=== PATIENT | female | born 1980 | race American Indian/Alaskan Native ===

== ENCOUNTER 2016-12-09 08:13 | Emergency (ER) | payer OTHER ==
[2016-12-09 09:02] LABS: Bilirubin,Urine Negative (Negative); Ketones,Urine Negative (Negative)
[2016-12-09 09:03] LABS: Blood,Urine Small (Negative); Leukocyte Esterase,Urine Small (Negative); Nitrite,Urine Negative (Negative); Urobilinogen,Urine 0.2 mg/dL (<2.0)
[2016-12-09 09:10] LABS: Bacteria,Urine 1+ /HPF (Negative)
[2016-12-09 11:42] LABS: Basophils % (Auto) 1.3 % (0.0-1.8); Hematocrit 31.2 % (30.3-42.9); Hemoglobin 10.1 gm/dl (10.1-14.3); Mean Corpuscular HGB Conc 32 % (30-34); Mean Corpuscular Hemoglobin 26 pg (28-32); Mean Corpuscular Volume 81 fl (79-97); Platelet Count 272 K/mm3 (140-440); Red Blood Count 3.85 M/mm3 (3.65-5.03); Red Cell Distribution Width 16.7 % (13.2-15.2); White Blood Count 6.3 K/mm3 (4.5-11.0)
[2016-12-09 11:56] LABS: Alanine Aminotransferase 8 units/L (7-56); Albumin 3.8 g/dL (3.9-5); Albumin/Globulin Ratio 0.9 %; Alkaline Phosphatase 84 units/L (35-129); Anion Gap 18 mmol/L; BUN/Creatinine Ratio 16.66; Bilirubin,Total < 0.2 mg/dL (0.1-1.2); Blood Urea Nitrogen 10 mg/dL (7-17); Carbon Dioxide 24 mmol/L (22-30); Glucose 274 mg/dL (65-100); Lipase 19 units/L (13-60); Potassium 3.9 mmol/L (3.6-5.0); Sodium 143 mmol/L (137-145)
[2016-12-09] MEDS ORDERED: ZOFRAN IV ONE (13:20)
[2016-12-09] MEDS ORDERED: NACL 0.9% 1000 ML 1,000 ML IV ONE (13:20)
[2016-12-09] MEDS ORDERED: DILAUDID IV ONE ×2 (13:20→14:30)
--- NOTE | 2016-12-09 13:30 | Emergency Department Report ---
HPI - General Chief Complaint: Abdominal Pain Time Seen by Provider: 12/09/16 13:25 - HPI HPI: This is a 36-year-old Afro-[place] female who presents to the emergency department with complaint of a three-day history of generalized abdominal discomfort, nausea, vomiting that she believes is an exacerbation of her gastroparesis. Patient does not have a primary care doctor but says she follows up with a nut roaster helper, Dr. soto, and last saw him in October. Patient was also here at the end of October for a similar tetraparesis exacerbation. She is not taken anything for symptoms. Presentation. She also has a history of insulin-dependent diabetes and in reviewing her chart it does not appear that it is often well-controlled. She has a past medical history as well of asthma and a past surgical history of appendectomy, cholecystectomy, tubal ligation and previous C-sections 2. No recent travel or sick contacts at home. She is not taken anything for symptoms prior to presentation. ED Past Medical Hx - Past Medical History Previous Medical History?: Yes Hx Congestive Heart Failure: No Hx Diabetes: Yes Hx Asthma: Yes Hx COPD: No Additional medical history: gastroparesis (no official dx) - Surgical History Past Surgical History?: Yes Hx Cholecystectomy: Yes Hx Appendectomy: Yes Additional Surgical History: tubal ligation. x 2 - Social History Smoking Status: Never Smoker Substance Use Type: None - Medications Home Medications: Home Medications Medication Instructions Recorded Confirmed Last Taken Type Metoclopramide HCl [Reglan] 10 mg PO TID PRN #30 tablet 03/21/15 08/26/15 Rx Ciprofloxacin HCl [Ciprofloxacin 500 mg PO Q12H #14 tab 08/27/15 Unknown Rx TAB] Insulin Glargine [Lantus VIAL] 15 units SUB-Q QHS 30 Days 08/27/15 Unknown Rx Insulin Regular, Human [HumuLIN R] 5 units SUB-Q TID 30 Days 08/27/15 Unknown Rx Ondansetron [Zofran TAB] 4 mg PO Q6HR PRN #20 tablet 02/23/16 Unknown Rx Cyclobenzaprine HCl [Flexeril 5 MG 5 mg PO Q8HR PRN #10 tab 03/17/16 Unknown Rx TAB] Metoclopramide [Reglan] 10 mg PO QID PRN #30 04/02/16 Unknown Rx Ondansetron [Zofran Odt] 4 mg PO Q6H #20 tab.rapdis 10/28/16 Unknown Rx Ondansetron [Zofran ODT TAB] 4 mg PO Q8HR PRN #10 tab.rapdis 12/09/16 Unknown Rx traMADol [Ultram 50 MG tab] 50 mg PO Q6HR PRN #14 tablet 12/09/16 Unknown Rx ED Review of Systems ROS: Stated complaint: ABD PAIN Other details as noted in HPI Comment: All other systems reviewed and negative Constitutional: denies: chills, fever Eyes: denies: eye pain, eye discharge, vision change ENT: denies: ear pain, throat pain Respiratory: denies: cough, shortness of breath, wheezing Cardiovascular: denies: chest pain, palpitations Gastrointestinal: abdominal pain, nausea, vomiting Genitourinary: denies: urgency, dysuria, discharge Musculoskeletal: denies: back pain, joint swelling, arthralgia Skin: denies: rash, lesions Neurological: denies: headache, weakness, paresthesias Physical Exam - Physical Exam Vital Signs: Vital Signs 12/09/16 08:18 Temperature 97.8 F Pulse Rate 80 Respiratory 18 Rate Blood Pressure 157/106 O2 Sat by Pulse 98 Oximetry Physical Exam: GENERAL: The patient is well-developed well-nourished. HEENT: Normocephalic. Atraumatic. Extraocular motions are intact. Patient has moist mucous membranes. Pupils equal reactive to light bilaterally. NECK: Supple. Trachea is midline. CHEST/LUNGS: Clear to auscultation. There is no respiratory distress noted. HEART/CARDIOVASCULAR: Regular. There is no tachycardia. There is no gallop rub or murmur. ABDOMEN: Abdomen is soft. Generalized tenderness to palpation of the abdomen. No guarding or rebound tenderness. No peritoneal signs. Patient has normal bowel sounds. There is no abdominal distention. SKIN: There is no rash. There is no diaphoresis. NEURO: The patient is awake, alert, and oriented. The patient is cooperative. The patient has no focal neurologic deficits. The patient has normal speech. MUSCULOSKELETAL: There is no tenderness or deformity. There is no limitation range of motion. There is no evidence of acute injury. ED Course Vital Signs 12/09/16 08:18 Temperature 97.8 F Pulse Rate 80 Respiratory 18 Rate Blood Pressure 157/106 O2 Sat by Pulse 98 Oximetry ED Medical Decision Making - Lab Data Result diagrams: 12/09/16 11:28 12/09/16 11:28 - Radiology Data Radiology results: image reviewed interpreted by me: Abdominal x-ray shows some stool throughout the colon and some nonobstructive bowel gas but otherwise no acute process. - Medical Decision Making 36-year-old female presents with a few days of nausea, vomiting, abdominal pain consistent with her previous gastroparesis exacerbations. Patient's labs have been mostly unremarkable including no signs of infection in the blood, electrolyte abnormalities, renal insufficiency, and the patient has normal belly labs including lipase, LFTs and bilirubin. Her urinalysis does show a urinary tract infection however. Given a dose of Rocephin in the emergency department. The patient did have some hyperglycemia but does not appear to be in diabetic ketoacidosis. Abdominal x-ray does not show any bowel obstruction or any other acute process. Patient was given IV fluid resuscitation, antinausea medication and 2 doses of pain medication. Upon reevaluation the patient says she is feeling better. She already has good follow-up with a nut roaster helper but will be given some primary care doctor referrals as well. She'll be discharged home with some pain medication, nausea medication, and encouraged to increase oral rehydration. She will return to the ER with any worsening of her symptoms or any acute distress. - Differential Diagnosis gastroparesis, bowel obstruction, colitis, diverticulitis Critical Care Time: No Critical care attestation.: If time is entered above; I have spent that time in minutes in the direct care of this critically ill patient, excluding procedure time. ED Disposition Clinical Impression: Hyperglycemia Abdominal pain Qualifiers: Abdominal location: generalized Qualified Code(s): R10.84 - Generalized abdominal pain Nausea and vomiting Qualifiers: Vomiting type: unspecified Vomiting Intractability: non-intractable Qualified Code(s): R11.2 - Nausea with vomiting, unspecified UTI (urinary tract infection) Qualifiers: Urinary tract infection type: acute cystitis Hematuria presence: without hematuria Qualified Code(s): N30.00 - Acute cystitis without hematuria Disposition: DISCHARGED TO HOME OR SELFCARE Is pt being admited?: No Condition: Stable Instructions: Abdominal Pain (ED), Acute Nausea and Vomiting (ED), Diabetic Hyperglycemia (ED) Additional Instructions: Please follow-up with your nut roaster helper in the next few days if possible. I have also given use some referrals for local primary care clinics and physicians. Return to the emergency department with any worsening of your symptoms or any acute distress. You've been prescribed a medication that is sedating. Therefore this medication cannot be mixed with alcohol, or taken prior to driving, working, or being responsible for children. Prescriptions: Ondansetron [Zofran ODT TAB] 4 mg PO Q8HR PRN #10 tab.rapdis PRN Reason: Nausea traMADol [Ultram 50 MG tab] 50 mg PO Q6HR PRN #14 tablet PRN Reason: Pain Referrals: PRIMARY CAREMD [Primary Care Provider] - 3-5 Days BRADY GAMBLE MD [Staff Physician] - 3-5 Days [facility] [Outside] - 3-5 Days Time of Disposition: 15:18
[2016-12-09] MEDS ORDERED: BENADRYL ONE (13:39)
[2016-12-09] MEDS ORDERED: BENADRYL IV ONE (13:50)
[2016-12-09] MEDS ORDERED: ROCEPHIN/NS 1 GM/50 ML 1 GM/50 ML BAG IV ONE (14:00)
[2016-12-09 14:21] VITALS: BP 127/71
--- NOTE | 2016-12-10 08:27 | XRay Report ---
ABDOMEN RADIOGRAPHS INDICATION: Abdominal pain. COMPARISON: 10/25/2014 FINDINGS: Frontal abdominal radiographs demonstrate nonobstructive bowel gas pattern without focal suspicious calcifications, pneumatosis or pneumoperitoneum. Moderate colonic stool/possible constipation. Cholecystectomy clips. Numerous pelvic phleboliths. Interval clearing of urinary bladder contrast. Clear visualized lung bases. Unremarkable bones. CONCLUSION: Possible constipation without acute radiographic abnormality, as described. Please correlate. Thank you for the opportunity to participate in this patient's care.
== END 2016-12-09 16:16 | disposition home or self-care (01) ==
LOC: ED 08:13
DX: E11.65 Type 2 diabetes mellitus with hyperglycemia (principal); N30.00 Acute cystitis without hematuria; R11.2 Nausea with vomiting, unspecified; R10.84 Generalized abdominal pain; J45.909 Unspecified asthma, uncomplicated; Z90.49 Acquired absence of other specified parts of digestive tract
CPT/HCPCS: 36415; 74020; 80053; 81001; 81025; 83690; 85025; 96365; 96375; 96376; 99284; J0696; J1170; J1200; J2405; J7030

== ENCOUNTER 2016-12-31 21:44 | Emergency (ER) | payer OTHER ==
--- NOTE | 2016-12-31 23:03 | Emergency Department Report ---
Chief Complaint: Abdominal Pain Stated Complaint: ABD PAIN/VOMITING Time Seen by Provider: 12/31/16 22:58 - HPI History of Present Illness: 36-year-old female past medical history of diabetes asthma and possible gastroparesis comes in today for abdominal pain and vomiting 5 days. Patient reports that is progressively getting worse. Patient last vomited 45 minutes ago she also admits to nausea - Exam Vital Signs: Vital Signs 12/31/16 22:09 Temperature 98.5 F Pulse Rate 87 Respiratory 18 Rate Blood Pressure 129/81 O2 Sat by Pulse 99 Oximetry Physical Exam: Patient's alert and oriented does appear to be a discomfort. Cardiovascular S1- S2 regular rate and rhythm respiratory clear to observation bilateral abdomen soft tenderness diffuse. MSE screening note: Focused history and physical exam performed. Due to findings the following was ordered: CBC CMP lipase urinalysis is been ordered patient be evaluated in the main ER ED Disposition for MSE Condition: Stable Instructions: Abdominal Pain (ED) Referrals: PRIMARY CARE, [Primary Care Provider] - 3-5 Days
[2017-01-01] MEDS ORDERED: BENADRYL IV ONE (04:19)
[2017-01-01] MEDS ORDERED: DILAUDID IV ONE ×2 (04:19→06:53)
[2017-01-01] MEDS ORDERED: NACL 0.9% 1000 ML 1,000 ML IV ONE (04:19)
[2017-01-01] MEDS ORDERED: REGLAN IV ONE (04:19)
[2017-01-01 05:52] LABS: Bacteria,Urine 1+ /HPF (Negative); Bilirubin,Urine NEG (Negative); Blood,Urine MOD (Negative); Ketones,Urine NEG (Negative); Leukocyte Esterase,Urine LG (Negative); Mucus,Urine FEW /HPF; Nitrite,Urine POS (Negative); Urobilinogen,Urine < 2.0 mg/dL (<2.0); WBC,Urine > 182.0 /HPF (0.0-6.0)
[2017-01-01 06:04] LABS: Basophils % (Auto) 0.7 % (0.0-1.8); Eosinophils % (Auto) 0.2 % (0.0-4.3); Hematocrit 33.4 % (30.3-42.9); Hemoglobin 10.7 gm/dl (10.1-14.3); Mean Corpuscular HGB Conc 32 % (30-34); Mean Corpuscular Volume 81 fl (79-97); Platelet Count 270 K/mm3 (140-440); Red Blood Count 4.12 M/mm3 (3.65-5.03); Red Cell Distribution Width 18.1 % (13.2-15.2); White Blood Count 13.1 K/mm3 (4.5-11.0)
[2017-01-01 06:16] LABS: Alanine Aminotransferase 13 units/L (7-56); Albumin 3.8 g/dL (3.9-5); Albumin/Globulin Ratio 0.8 %; Alkaline Phosphatase 122 units/L (35-129); Anion Gap 22 mmol/L; Bilirubin,Total 0.5 mg/dL (0.1-1.2); Blood Urea Nitrogen 14 mg/dL (7-17); Calcium 9.1 mg/dL (8.4-10.2); Carbon Dioxide 28 mmol/L (22-30); Chloride 86.4 mmol/L (98-107); Glucose 433 mg/dL (65-100); Lipase 23 units/L (13-60); Potassium 3.7 mmol/L (3.6-5.0); Sodium 133 mmol/L (137-145); Total Protein 8.3 g/dL (6.3-8.2)
[2017-01-01 06:20] LABS: Mean Corpuscular Hemoglobin 26 pg (28-32)
[2017-01-01] MEDS ORDERED: MACROBID PO ONE (06:53)
--- NOTE | 2017-01-01 06:56 | Emergency Department Report ---
ED Abdominal Pain HPI - General Chief Complaint: Abdominal Pain Stated Complaint: ABD PAIN/VOMITING Time Seen by Provider: 12/31/16 22:58 Source: patient Mode of arrival: Ambulatory Limitations: No Limitations - History of Present Illness Initial Comments: This is a 36-year-old female. I have previously evaluated her. Has a past medical history of hypertension, diabetes, high cholesterol, questionable diagnosis of gastroparesis, although as per our medical records, it has not been formally diagnosed. She does not follow-up with gastroenterology thus far. Patient presents to the ER complaining of diffuse abdominal pain, nausea and vomiting 5 days. Abdominal pain is sharp and achy. It is "all over." It worsens with palpation and range of motion. It decreases with rest. She denies irritative and obstructive urinary symptoms. She reports that she is defecating normally. No vaginal pain, no vaginal bleeding, no vaginal spotting. The patient denies marijuana consumption. MD Complaint: abdominal pain -: Gradual Location: diffuse Severity: moderate Severity scale (0 -10): 10 Quality: cramping, aching Consistency: intermittent Improves With: medication, rest Worsens With: eating, vomiting Associated Symptoms: nausea, vomiting, fever (patient found to be febrile in the emergency department.) - Related Data Previous Rx's Medication Instructions Recorded Last Taken Type Insulin Glargine [Lantus VIAL] 15 units SUB-Q QHS 30 Days 08/27/15 Unknown Rx Insulin Regular, Human [HumuLIN R] 5 units SUB-Q TID 30 Days 08/27/15 Unknown Rx Ondansetron [Zofran TAB] 4 mg PO Q6HR PRN #20 tablet 02/23/16 Unknown Rx Cyclobenzaprine HCl [Flexeril 5 MG 5 mg PO Q8HR PRN #10 tab 03/17/16 Unknown Rx TAB] Metoclopramide [Reglan] 10 mg PO QID PRN #30 04/02/16 Unknown Rx Ondansetron [Zofran ODT TAB] 4 mg PO Q8HR PRN #10 tab.rapdis 12/09/16 Unknown Rx traMADol [Ultram 50 MG tab] 50 mg PO Q6HR PRN #14 tablet 12/09/16 Unknown Rx Famotidine [Pepcid] 20 mg PO QDAY #30 tablet 01/01/17 Unknown Rx Nitrofurantoin [place]/M-Cryst 100 mg PO Q12HR #13 capsule 01/01/17 Unknown Rx [Macrobid CAP] Ondansetron [Zofran Odt] 4 mg PO QID PRN #20 tab.rapdis 01/01/17 Unknown Rx Promethazine [Phenergan SUPPOS] 50 mg TN Q6H PRN #20 supp.rect 01/01/17 Unknown Rx Allergies Allergy/AdvReac Type Severity Reaction Status Date / Time ketorolac tromethamine Allergy Shortness Verified 02/22/16 14:27 [From Toradol] of Breath morphine Allergy Itching Verified 02/22/16 14:27 dicyclomine HCl [From Bentyl] AdvReac Hives Verified 10/28/16 04:49 ED Review of Systems ROS: Stated complaint: ABD PAIN/VOMITING Other details as noted in HPI Constitutional: malaise. denies: fever Eyes: denies: eye discharge ENT: denies: epistaxis Respiratory: denies: cough Cardiovascular: denies: chest pain Gastrointestinal: abdominal pain, nausea, vomiting Genitourinary: denies: dysuria Musculoskeletal: as per HPI Skin: denies: lesions Neurological: weakness Psychiatric: anxiety ED Past Medical Hx - Past Medical History Previous Medical History?: Yes Hx Congestive Heart Failure: No Hx Diabetes: Yes Hx Asthma: Yes Hx COPD: No Additional medical history: gastroparesis (no official dx) - Surgical History Hx Cholecystectomy: Yes Hx Appendectomy: Yes Additional Surgical History: tubal ligation. x 2 - Social History Smoking Status: Never Smoker - Medications Home Medications: Home Medications Medication Instructions Recorded Confirmed Last Taken Type Insulin Glargine [Lantus VIAL] 15 units SUB-Q QHS 30 Days 08/27/15 Unknown Rx Insulin Regular, Human [HumuLIN R] 5 units SUB-Q TID 30 Days 08/27/15 Unknown Rx Ondansetron [Zofran TAB] 4 mg PO Q6HR PRN #20 tablet 02/23/16 Unknown Rx Cyclobenzaprine HCl [Flexeril 5 MG 5 mg PO Q8HR PRN #10 tab 03/17/16 Unknown Rx TAB] Metoclopramide [Reglan] 10 mg PO QID PRN #30 04/02/16 Unknown Rx Ondansetron [Zofran ODT TAB] 4 mg PO Q8HR PRN #10 tab.rapdis 12/09/16 Unknown Rx traMADol [Ultram 50 MG tab] 50 mg PO Q6HR PRN #14 tablet 12/09/16 Unknown Rx Famotidine [Pepcid] 20 mg PO QDAY #30 tablet 01/01/17 Unknown Rx Nitrofurantoin [place]/M-Cryst 100 mg PO Q12HR #13 capsule 01/01/17 Unknown Rx [Macrobid CAP] Ondansetron [Zofran Odt] 4 mg PO QID PRN #20 tab.rapdis 01/01/17 Unknown Rx Promethazine [Phenergan SUPPOS] 50 mg TN Q6H PRN #20 supp.rect 01/01/17 Unknown Rx ED Physical Exam - General Limitations: No Limitations General appearance: alert, in no apparent distress - Head Head exam: Present: atraumatic, normocephalic - Eye Eye exam: Present: normal appearance - ENT ENT exam: Present: mucous membranes dry - Neck Neck exam: Present: normal inspection, full ROM. Absent: tenderness, meningismus - Respiratory Respiratory exam: Present: normal lung sounds bilaterally. Absent: respiratory distress, wheezes, rales, rhonchi, stridor, chest wall tenderness - Cardiovascular Cardiovascular Exam: Present: regular rate, normal rhythm, normal heart sounds. Absent: bradycardia, tachycardia, irregular rhythm, systolic murmur, diastolic murmur, rubs, gallop - GI/Abdominal GI/Abdominal exam: Present: soft, tenderness, normal bowel sounds. Absent: distended, guarding, rebound, rigid, pulsatile mass - Extremities Exam Extremities exam: Present: normal inspection, full ROM, normal capillary refill. Absent: tenderness, pedal edema, joint swelling, calf tenderness - Back Exam Back exam: Present: normal inspection, full ROM. Absent: tenderness, CVA tenderness (R), CVA tenderness (L), muscle spasm, paraspinal tenderness, vertebral tenderness - Neurological Exam Neurological exam: Present: alert, oriented X3, other (Extraocular movements intact. Tongue midline. No facial droop. Facial sensation intact to light touch in the V1, V2, V3 distribution bilaterally. 5 and 5 strength in 4 extremities.. Sensation is intact to light touch in 4 extremities.). Absent: motor sensory deficit - Psychiatric Psychiatric exam: Present: normal affect, normal mood - Skin Skin exam: Present: warm, dry, intact, normal color. Absent: rash ED Course Vital Signs 12/31/16 01/01/17 01/01/17 22:09 04:14 04:20 Temperature 98.5 F Pulse Rate 87 Respiratory 18 Rate Blood Pressure 129/81 Blood Pressure [Left] O2 Sat by Pulse 99 99 97 Oximetry 01/01/17 01/01/17 01/01/17 04:30 04:40 04:50 Temperature Pulse Rate Respiratory Rate Blood Pressure 164/83 164/83 Blood Pressure [Left] O2 Sat by Pulse 89 97 92 Oximetry 01/01/17 01/01/17 01/01/17 04:59 05:09 09:23 Temperature 101.5 F H 98.6 F Pulse Rate 89 78 Respiratory 25 H 14 16 Rate Blood Pressure Blood Pressure 175/100 124/66 [Left] O2 Sat by Pulse 98 98 97 Oximetry 01/01/17 11:40 Temperature Pulse Rate 78 Respiratory 16 Rate Blood Pressure Blood Pressure 125/70 [Left] O2 Sat by Pulse 98 Oximetry - Reevaluation(s) Reevaluation #1: 01/01/17 07:44 Differential diagnosis: GERD, gastritis, cyclic vomiting syndrome and viral syndrome, urinary tract infection, colitis, diverticulitis, pancreatitis, gastroparesis exacerbation Assessment and plan: 36-year-old female with mild diffuse abdominal tenderness, nausea and vomiting, urinalysis that suggests urinary tract infection, laboratory studies not consistent with DKA. Most likely viral syndrome. Her pain is markedly improved with IV hydromorphone. She is incidentally found to be febrile in the emergency department. She was given IV fluids, insulin, and Macrobid as well as acetaminophen. I highly doubt surgical disease, but we will obtain a CT scan of the abdomen and pelvis. The patient was a very difficult IV stick, has a 24-gauge IV in the dorsum of the right pinky, therefore we will obtain a noncontrast CT scan study., 01/01/17 07:46 Reevaluation #2: 01/01/17 11:14 As per verbal report from radiologist, Dr. Cook noncontrast CT scan demonstrates no acute surgical disease. Patient is status post appendectomy, mild constipation is suggested, and there is fullness to the left ureter. Patient has been observed in the ER for a prolonged. Of time. She is tolerating liquid feeds. No active vomiting, hyperglycemia improved. Patient will be discharged with nonnarcotic pain medication, antibiotics, nausea medication. I will withhold narcotic therapy at this time, I dont think it is appropriate given her history. She can follow up with a primary care doctor. Of note, the local gastroenterology group, [facility], has a patient service hotline which the patient can call, and typically be accommodated with an appointment in a very short period of time. 01/01/17 15:37 ED Medical Decision Making - Lab Data Result diagrams: 01/01/17 05:30 01/01/17 05:30 Vital Signs 12/31/16 01/01/17 01/01/17 22:09 04:14 04:20 Temperature 98.5 F Pulse Rate 87 Respiratory 18 Rate Blood Pressure 129/81 Blood Pressure [Left] O2 Sat by Pulse 99 99 97 Oximetry 01/01/17 01/01/17 01/01/17 04:30 04:40 04:50 Temperature Pulse Rate Respiratory Rate Blood Pressure 164/83 164/83 Blood Pressure [Left] O2 Sat by Pulse 89 97 92 Oximetry 01/01/17 01/01/17 04:59 05:09 Temperature 101.5 F H Pulse Rate 89 Respiratory 25 H 14 Rate Blood Pressure Blood Pressure 175/100 [Left] O2 Sat by Pulse 98 98 Oximetry Lab Results 12/31/16 01/01/17 01/01/17 Range/Units 22:15 05:06 05:25 WBC (4.5-11.0) K/mm3 RBC (3.65-5.03) M/mm3 Hgb (10.1-14.3) gm/dl Hct (30.3-42.9) % MCV (79-97) fl MCH (28-32) pg MCHC (30-34) % RDW (13.2-15.2) % Plt Count (140-440) K/mm3 Lymph % (Auto) (13.4-35.0) % [place] % (Auto) (0.0-7.3) % Eos % (Auto) (0.0-4.3) % Baso % (Auto) (0.0-1.8) % Lymph # (1.2-5.4) K/mm3 [place] # (0.0-0.8) K/mm3 Eos # (0.0-0.4) K/mm3 Baso # (0.0-0.1) K/mm3 Seg Neutrophils % (40.0-70.0) % Seg Neutrophils # (1.8-7.7) K/mm3 VBG pH (7.320-7.420) Sodium (137-145) mmol/L Potassium (3.6-5.0) mmol/L Chloride (98-107) mmol/L Carbon Dioxide (22-30) mmol/L Anion Gap mmol/L BUN (7-17) mg/dL Creatinine (0.7-1.2) mg/dL Estimated GFR ml/min BUN/Creatinine Ratio % Glucose (65-100) mg/dL POC Glucose 326 H 437 H (70-105) Calcium (8.4-10.2) mg/dL Total Bilirubin (0.1-1.2) mg/dL AST (5-40) units/L ALT (7-56) units/L Alkaline Phosphatase (35-129) units/L Total Protein (6.3-8.2) g/dL Albumin (3.9-5) g/dL Albumin/Globulin Ratio % Lipase (13-60) units/L HCG, Qual (Negative) Urine Color Yellow (Yellow) Urine Turbidity Turbid (Clear) Urine pH 5.0 (5.0-7.0) Ur Specific Mathews 1.014 (1.003-1.030) Urine Protein 100 mg/dl (Negative) mg/dL Urine Glucose (UA) >=500 (Negative) mg/dL Urine Ketones Neg (Negative) mg/dL Urine Blood Mod (Negative) Urine Nitrite Pos (Negative) Urine Bilirubin Neg (Negative) Urine Urobilinogen < 2.0 (<2.0) mg/dL Ur Leukocyte Esterase Lg (Negative) Urine WBC (Auto) > 182.0 H (0.0-6.0) /HPF Urine RBC (Auto) 38.0 (0.0-6.0) /HPF U Epithel Cells (Auto) 15.0 H (0-13.0) /HPF Urine Bacteria (Auto) 1+ (Negative) /HPF Urine WBC Clumps 3+ /HPF Urine Mucus Few /HPF Ketones (0.2-2.8) mg/dL 01/01/17 01/01/17 01/01/17 Range/Units 05:30 05:30 05:30 WBC 13.1 H (4.5-11.0) K/mm3 RBC 4.12 (3.65-5.03) M/mm3 Hgb 10.7 (10.1-14.3) gm/dl Hct 33.4 (30.3-42.9) % MCV 81 (79-97) fl MCH 26 L (28-32) pg MCHC 32 (30-34) % RDW 18.1 H (13.2-15.2) % Plt Count 270 (140-440) K/mm3 Lymph % (Auto) 10.6 L (13.4-35.0) % [place] % (Auto) 9.5 H (0.0-7.3) % Eos % (Auto) 0.2 (0.0-4.3) % Baso % (Auto) 0.7 (0.0-1.8) % Lymph # 1.4 (1.2-5.4) K/mm3 [place] # 1.2 H (0.0-0.8) K/mm3 Eos # 0.0 (0.0-0.4) K/mm3 Baso # 0.1 (0.0-0.1) K/mm3 Seg Neutrophils % 79.0 H (40.0-70.0) % Seg Neutrophils # 10.4 H (1.8-7.7) K/mm3 VBG pH (7.320-7.420) Sodium 133 L (137-145) mmol/L Potassium 3.7 (3.6-5.0) mmol/L Chloride 86.4 L (98-107) mmol/L Carbon Dioxide 28 (22-30) mmol/L Anion Gap 22 mmol/L BUN 14 (7-17) mg/dL Creatinine 0.8 (0.7-1.2) mg/dL Estimated GFR > 60 ml/min BUN/Creatinine Ratio 17.50 % Glucose 433 H (65-100) mg/dL POC Glucose (70-105) Calcium 9.1 (8.4-10.2) mg/dL Total Bilirubin 0.5 (0.1-1.2) mg/dL AST 18 (5-40) units/L ALT 13 (7-56) units/L Alkaline Phosphatase 122 (35-129) units/L Total Protein 8.3 H (6.3-8.2) g/dL Albumin 3.8 L (3.9-5) g/dL Albumin/Globulin Ratio 0.8 % Lipase 23 (13-60) units/L HCG, Qual Negative (Negative) Urine Color (Yellow) Urine Turbidity (Clear) Urine pH (5.0-7.0) Ur Specific Mathews (1.003-1.030) Urine Protein (Negative) mg/dL Urine Glucose (UA) (Negative) mg/dL Urine Ketones (Negative) mg/dL Urine Blood (Negative) Urine Nitrite (Negative) Urine Bilirubin (Negative) Urine Urobilinogen (<2.0) mg/dL Ur Leukocyte Esterase (Negative) Urine WBC (Auto) (0.0-6.0) /HPF Urine RBC (Auto) (0.0-6.0) /HPF U Epithel Cells (Auto) (0-13.0) /HPF Urine Bacteria (Auto) (Negative) /HPF Urine WBC Clumps /HPF Urine Mucus /HPF Ketones (0.2-2.8) mg/dL 01/01/17 01/01/17 01/01/17 Range/Units 05:30 05:30 07:25 WBC (4.5-11.0) K/mm3 RBC (3.65-5.03) M/mm3 Hgb (10.1-14.3) gm/dl Hct (30.3-42.9) % MCV (79-97) fl MCH (28-32) pg MCHC (30-34) % RDW (13.2-15.2) % Plt Count (140-440) K/mm3 Lymph % (Auto) (13.4-35.0) % [place] % (Auto) (0.0-7.3) % Eos % (Auto) (0.0-4.3) % Baso % (Auto) (0.0-1.8) % Lymph # (1.2-5.4) K/mm3 [place] # (0.0-0.8) K/mm3 Eos # (0.0-0.4) K/mm3 Baso # (0.0-0.1) K/mm3 Seg Neutrophils % (40.0-70.0) % Seg Neutrophils # (1.8-7.7) K/mm3 VBG pH 7.414 (7.320-7.420) Sodium (137-145) mmol/L Potassium (3.6-5.0) mmol/L Chloride (98-107) mmol/L Carbon Dioxide (22-30) mmol/L Anion Gap mmol/L BUN (7-17) mg/dL Creatinine (0.7-1.2) mg/dL Estimated GFR ml/min BUN/Creatinine Ratio % Glucose (65-100) mg/dL POC Glucose 89 (70-105) Calcium (8.4-10.2) mg/dL Total Bilirubin (0.1-1.2) mg/dL AST (5-40) units/L ALT (7-56) units/L Alkaline Phosphatase (35-129) units/L Total Protein (6.3-8.2) g/dL Albumin (3.9-5) g/dL Albumin/Globulin Ratio % Lipase (13-60) units/L HCG, Qual (Negative) Urine Color (Yellow) Urine Turbidity (Clear) Urine pH (5.0-7.0) Ur Specific Mathews (1.003-1.030) Urine Protein (Negative) mg/dL Urine Glucose (UA) (Negative) mg/dL Urine Ketones (Negative) mg/dL Urine Blood (Negative) Urine Nitrite (Negative) Urine Bilirubin (Negative) Urine Urobilinogen (<2.0) mg/dL Ur Leukocyte Esterase (Negative) Urine WBC (Auto) (0.0-6.0) /HPF Urine RBC (Auto) (0.0-6.0) /HPF U Epithel Cells (Auto) (0-13.0) /HPF Urine Bacteria (Auto) (Negative) /HPF Urine WBC Clumps /HPF Urine Mucus /HPF Ketones 8.4 H (0.2-2.8) mg/dL Critical care attestation.: If time is entered above; I have spent that time in minutes in the direct care of this critically ill patient, excluding procedure time. ED Disposition Clinical Impression: Urinary tract infection, Abdominal pain Disposition: DISCHARGED TO HOME OR SELFCARE Is pt being admited?: No Does the pt Need Aspirin: No Condition: Stable Instructions: Abdominal Pain (ED) Additional Instructions: Laboratory studies suggested urinary tract infection. CT scan of abdomen and pelvis suggested constipation. Take the pain medication, nausea medication as directed. If you are vomiting so much that he cannot tolerate the Zofran orally , I have also written for a Phenergan prescription, which can be applied rectally. For pain/fever, take acetaminophen, 650 mg, every 4-6 hours. This medication can be purchased [id number]. I do recommend that he follow up with either her primary care doctor or sr. operations manager within the next week. Dr. Jace Reagan is a local primary care doctor. Dr. Padron is a local sr. operations manager for your year convenience, [facility] has 8 patient service hotline which can be contacted during normal business hours, to arrange close outpatient follow-up: [email or web address] ([phone]) Prescriptions: Famotidine [Pepcid] 20 mg PO QDAY #30 tablet Nitrofurantoin [place]/M-Cryst [Macrobid CAP] 100 mg PO Q12HR #13 capsule Ondansetron [Zofran Odt] 4 mg PO QID PRN #20 tab.rapdis PRN Reason: Nausea Promethazine [Phenergan SUPPOS] 50 mg TN Q6H PRN #20 supp.rect PRN Reason: Nausea Referrals: PRIMARY CARE, [Primary Care Provider] - 3-5 Days CHRIS PADRON MD [Staff Physician] - 3-5 Days JACE REAGAN MD [Staff Physician] - 3-5 Days
[2017-01-01] MEDS: TYLENOL PO ONE ×2 (07:42→09:03)
[2017-01-01] MEDS ORDERED: PEPCID ONE (11:25)
--- NOTE | 2017-01-01 11:28 | Cat Scan Report ---
CT ABDOMEN AND PELVIS WITHOUT CONTRAST INDICATION: Abdominal pain, nausea, vomiting, fever. COMPARISON: 08/26/2015 FINDINGS: Noncontrast abdomen and pelvis CT performed. LUNG BASES: Slight bibasilar dependent atelectasis and minimal left basilar scarring. Top normal heart size. Anemia not excluded. No effusions. Right hemidiaphragm may be mildly elevated. Nonspecific distal esophageal wall thickening, not excluded for gastroesophageal reflux and/or hiatal hernia, amongst others. ABDOMEN: Please note that sensitivity to detect small visceral lesions is limited due to the absence of intravenous or oral contrast. Stable cholecystectomy clips and subtle right renal hyperdense calculi in the mid to lower aspect measuring up to 2-3 mm, axial images 146 and 163, series 2. Mild diffuse caliber prominence of the left ureter may be slightly greater since the prior exam as also minimal intrahepatic collecting system fullness. No right hydronephrosis. Grossly unremarkable unenhanced liver, spleen, pancreas, adrenals, nonaneurysmal abdominal aorta, IVC and nonobstructive, non-opacified bowel. Probable appendectomy changes. Mild to moderate colonic stool/possible constipation. No ascites or definite size significant adenopathy. PELVIS: Left distal ureter somewhat difficult to follow accurately to the bladder base, though numerous phleboliths again noted. Grossly stable unremarkable uterus, urinary bladder and the rectosigmoid. No free fluid or size significant adenopathy. Unremarkable bones. Slight lower abdominal/pelvic subcutaneous stranding again noted. CONCLUSION: 1. Slight nonspecific left ureteral and intrarenal collecting system fullness. No significant hydronephrosis however on either side with tiny nonobstructing right renal calculi again noted. 2. Few other incidental findings, as above. I phoned the above results to Dr. Hanna in the ER, 10:40 AM, 01/01/2017. Thank you for the opportunity to participate in this patient's care.
[2017-01-01] MEDS ORDERED: PEPCID PO ONE (11:30)
[2017-01-01 11:49] VITALS: BP 125/70
== END 2017-01-01 11:40 | disposition home or self-care (01) ==
LOC: ED 21:44
DX: N39.0 Urinary tract infection, site not specified (principal); R10.84 Generalized abdominal pain; Z88.8 Allergy status to other drugs, medicaments and biological substances; E11.9 Type 2 diabetes mellitus without complications; J45.909 Unspecified asthma, uncomplicated; Z90.49 Acquired absence of other specified parts of digestive tract; Z98.51 Tubal ligation status; Z79.4 Long term (current) use of insulin
CPT/HCPCS: 36415; 74176; 80053; 81001; 82010; 82805; 82962; 83690; 84703; 85025; 96361; 96374; 96375; 96376; 99284; J1170; J1200; J2765; J7030; J1815

== ENCOUNTER 2017-01-18 03:42 | Emergency (ER) | payer SELFPAY ==
[2017-01-18 04:55] LABS: Eosinophils % (Auto) 0.5 % (0.0-4.3); Hemoglobin 9.9 gm/dl (10.1-14.3); Mean Corpuscular HGB Conc 32 % (30-34); Mean Corpuscular Volume 80 fl (79-97); Platelet Count 397 K/mm3 (140-440); Red Blood Count 3.87 M/mm3 (3.65-5.03); Red Cell Distribution Width 17.3 % (13.2-15.2); White Blood Count 12.9 K/mm3 (4.5-11.0)
[2017-01-18 05:01] LABS: Mean Corpuscular Hemoglobin 26 pg (28-32)
[2017-01-18 05:38] LABS: Alanine Aminotransferase 11 units/L (7-56); Albumin 3.7 g/dL (3.9-5); Albumin/Globulin Ratio 0.7 %; Alkaline Phosphatase 121 units/L (35-129); Anion Gap 18 mmol/L; BUN/Creatinine Ratio 13.33; Bilirubin,Total 0.2 mg/dL (0.1-1.2); Blood Urea Nitrogen 8 mg/dL (7-17); Calcium 9.6 mg/dL (8.4-10.2); Carbon Dioxide 30 mmol/L (22-30); Glucose 394 mg/dL (65-100); Lipase 37 units/L (13-60); Potassium 3.8 mmol/L (3.6-5.0); Sodium 133 mmol/L (137-145); Total Protein 9.1 g/dL (6.3-8.2)
[2017-01-18] MEDS ORDERED: SUBLIMAZE IV ONE ×3 (10:51→17:56)
[2017-01-18] MEDS ORDERED: ZOFRAN IV ONE (10:51)
[2017-01-18] MEDS ORDERED: BENADRYL IV ONE (10:52)
[2017-01-18] MEDS ORDERED: NACL 0.9% 1000 ML 1,000 ML IV ONE (10:53)
--- NOTE | 2017-01-18 10:59 | Emergency Department Report ---
HPI - General Chief Complaint: Abdominal Pain Time Seen by Provider: 01/18/17 10:45 - HPI HPI: Room 3 The patient is a 36-year-old female presenting with a chief complaint of abdominal pain. The patient states for the past 5 days she is having intractable nausea and vomiting. Patient does admit to slight diarrhea. Patient states 3 days ago she developed substernal chest pain of sharp in nature with a pleuritic component. The patient gives her pain a score of 10/ 10. 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 Jourdan aranda yesterday and explained her symptoms. He is admonished the patient to call the office to schedule an appointment or to go to the ED. Patient denies gone to any other emergency departments for these symptoms within the past 5 days. Patient denies any history of fever Location: Chest, abdomen Duration: 5 days Quality: Sharp Severity: 10/10 Modifying factors: [see above] Context: [see above] Mode of transportation: EMS ED Past Medical Hx - Past Medical History Previous Medical History?: Yes Hx Diabetes: Yes Hx Asthma: Yes Additional medical history: gastroparesis (no official dx) - Surgical History Past Surgical History?: Yes Hx Cholecystectomy: Yes Hx Appendectomy: Yes Additional Surgical History: tubal ligation. x 2 - Family History Family history: no significant - Social History Smoking Status: Never Smoker Substance Use Type: None (denies illicit drug use) - Medications Home Medications: Home Medications Medication Instructions Recorded Confirmed Last Taken Type HYDROcodone/APAP 5-325 [[place] 1 - 2 each PO Q6HR PRN #10 tablet 01/18/17 Unknown Rx 5/325] Insulin Glargine [Lantus] 20 unit SUB-Q QHS 01/18/17 01/18/17 01/17/17 History Insulin NPH, Human [NovoLIN N] 10 unit SQ TIDAC 01/18/17 01/18/17 01/17/17 History Metoclopramide [Reglan] 10 mg PO TID PRN #30 tab 01/18/17 Unknown Rx Promethazine [Phenergan] 25 mg [place] Q6HR PRN #10 supp.rect 01/18/17 Unknown Rx Sulfamethoxazole/Trimethoprim 1 each PO BID #14 tablet 01/18/17 Unknown Rx [Bactrim DS TAB] ED Review of Systems ROS: Stated complaint: ABD PAIN Other details as noted in HPI Comment: All other systems reviewed and negative Constitutional: denies: chills, fever Eyes: denies: eye pain, eye discharge, vision change ENT: denies: ear pain, throat pain Respiratory: other (pleurisy). denies: cough, shortness of breath, wheezing Cardiovascular: denies: palpitations Endocrine: no symptoms reported Gastrointestinal: abdominal pain, nausea, vomiting, diarrhea Genitourinary: denies: urgency, dysuria, discharge Musculoskeletal: denies: back pain, joint swelling, arthralgia Skin: denies: rash, lesions Neurological: denies: headache, weakness, paresthesias Psychiatric: denies: anxiety, depression Hematological/Lymphatic: denies: easy bleeding, easy bruising Physical Exam - Physical Exam Vital Signs: Vital Signs 01/18/17 01/18/17 01/18/17 03:42 10:32 10:44 Temperature 98.0 F Pulse Rate 76 81 Respiratory 18 18 18 Rate Blood Pressure 143/85 191/104 [Right] O2 Sat by Pulse 100 98 Oximetry Physical Exam: GENERAL: The patient is well-developed well-nourished female lying on stretcher not appearing to be in acute distress. [] HEENT: Normocephalic. Atraumatic. Extraocular motions are intact. Patient has moist mucous membranes. NECK: Supple. Trachea midline CHEST/LUNGS: Clear to auscultation. There is no respiratory distress noted. HEART/CARDIOVASCULAR: Regular. There is no tachycardia. There is no gallop rub or murmur. ABDOMEN: Abdomen is soft, with discomfort to palpation in the epigastric region. Patient has normal bowel sounds. There is no abdominal distention. SKIN: There is no rash. There is no edema. There is no diaphoresis. NEURO: The patient is awake, alert, and oriented. The patient is cooperative. The patient has normal speech MUSCULOSKELETAL: There is no evidence of acute injury. ED Course Vital Signs 01/18/17 01/18/17 01/18/17 03:42 10:32 10:44 Temperature 98.0 F Pulse Rate 76 81 Respiratory 18 18 18 Rate Blood Pressure 143/85 191/104 [Right] O2 Sat by Pulse 100 98 Oximetry ED Medical Decision Making - Lab Data Result diagrams: 01/18/17 04:34 01/18/17 04:34 Laboratory Tests 01/18/17 01/18/17 01/18/17 04:34 04:34 04:34 WBC 12.9 H RBC 3.87 Hgb 9.9 L Hct 31.0 MCV 80 MCH 26 L MCHC 32 RDW 17.3 H Plt Count 397 Lymph % (Auto) 15.1 [place] % (Auto) 5.5 Eos % (Auto) 0.5 Baso % (Auto) 1.0 Lymph # 2.0 [place] # 0.7 Eos # 0.1 Baso # 0.1 Seg Neutrophils % 77.9 H Seg Neutrophils # 10.1 H Sodium 133 L Potassium 3.8 Chloride 89.0 L Carbon Dioxide 30 Anion Gap 18 BUN 8 Creatinine 0.6 L Estimated GFR > 60 BUN/Creatinine Ratio 13.33 Glucose 394 H Calcium 9.6 Total Bilirubin 0.2 AST 22 ALT 11 Alkaline Phosphatase 121 Total Creatine Kinase CK-MB (CK-2) CK-MB (CK-2) Rel Index Troponin T Total Protein 9.1 H Albumin 3.7 L Albumin/Globulin Ratio 0.7 Lipase 37 HCG, Qual Negative Urine Color Urine Turbidity Urine pH Ur Specific [place] Urine Protein Urine Glucose (UA) Urine Ketones Urine Blood Urine Nitrite Urine Bilirubin Urine Urobilinogen Ur Leukocyte Esterase Urine WBC (Auto) Urine RBC (Auto) 01/18/17 01/18/17 04:34 15:45 WBC RBC Hgb Hct MCV MCH MCHC RDW Plt Count Lymph % (Auto) [place] % (Auto) Eos % (Auto) Baso % (Auto) Lymph # [place] # Eos # Baso # Seg Neutrophils % Seg Neutrophils # Sodium Potassium Chloride Carbon Dioxide Anion Gap BUN Creatinine Estimated GFR BUN/Creatinine Ratio Glucose Calcium Total Bilirubin AST ALT Alkaline Phosphatase Total Creatine Kinase 130 CK-MB (CK-2) 1.9 CK-MB (CK-2) Rel Index 1.4 Troponin T < 0.010 Total Protein Albumin Albumin/Globulin Ratio Lipase HCG, Qual Urine Color Colorless Urine Turbidity Clear Urine pH 8.0 H Ur Specific [place] 1.012 Urine Protein 30 mg/dl Urine Glucose (UA) >=500 Urine Ketones Neg Urine Blood Sm Urine Nitrite Neg Urine Bilirubin Neg Urine Urobilinogen < 2.0 Ur Leukocyte Esterase Tr Urine WBC (Auto) 5.0 Urine RBC (Auto) 1.0 - EKG Data -: EKG Interpreted by Me EKG shows normal: sinus rhythm Rate: normal - EKG Data When compared to previous EKG there are: previous EKG unavailable 01/18/17 17:56 Left bundle branch block - Radiology Data Radiology results: report reviewed (CT abdomen and pelvis, VQ scan), image reviewed (CT abdomen and pelvis, VQ scan) VQ scan (read by radiologist)-normal examination CT abdomen and pelvis (read by radiologist) (-suspicion of acute pyelonephritis. - Medical Decision Making Urine CT findings concerning for pyelonephritis and leukocyte esterase seen on urinalysis I will treat the patient with antibiotics - Differential Diagnosis gastroparesis, PE, pneumonia, pneumothorax, malingering Critical care attestation.: If time is entered above; I have spent that time in minutes in the direct care of this critically ill patient, excluding procedure time. ED Disposition Clinical Impression: Acute abdominal pain, Pleurisy, Nausea and vomiting Disposition: DISCHARGED TO HOME OR SELFCARE Is pt being admited?: No Does the pt Need Aspirin: No Condition: Stable Instructions: Abdominal Pain (ED) Additional Instructions: Return to the emergency department immediately should you develop worsening symptoms, fever, inability to tolerate food or liquid or any other concerns. Prescriptions: HYDROcodone/APAP 5-325 [Pomerene 5/325] 1 - 2 each PO Q6HR PRN #10 tablet PRN Reason: Pain Metoclopramide [Reglan] 10 mg PO TID PRN #30 tab PRN Reason: Nausea Promethazine [Phenergan] 25 mg [place] Q6HR PRN #10 supp.rect PRN Reason: Vomiting Sulfamethoxazole/Trimethoprim [Bactrim DS TAB] 1 each PO BID #14 tablet Referrals: ANA MONROE [Primary Care Provider] - 3-5 Days Time of Disposition: 17:10
[2017-01-18 11:10] LABS: Creatine Kinase MB 1.9 ng/mL (0.0-4.0)
[2017-01-18 11:11] LABS: Creatine Kinase 130 units/L (30-135)
[2017-01-18] MEDS ORDERED: NACL ONE (12:20)
--- NOTE | 2017-01-18 12:55 | XRay Report ---
Single view chest: Compared to 06/03/15. History: Chest pain. Findings: Borderline cardiomegaly. Trachea is midline. No consolidation, pneumothorax or pleural effusion. Impression: No acute cardiopulmonary findings.
[2017-01-18] MEDS ORDERED: ATIVAN IV ONE (13:58)
--- NOTE | 2017-01-18 14:21 | Cat Scan Report ---
CT scan of abdomen and pelvis with IV contrast: History: Epigastric and abdominal pain. Leukocytosis. Findings: Normal lung bases. No pleural pericardial effusion. Normal liver spleen and pancreas. Patient status post cholecystectomy. Normal adrenals. Minimally enlarged kidneys with minimally dilated ureters with suspicion of acute pyelonephritis. Normal bladder. No free intraperitoneal fluid or air. No evidence of adenopathy. Normal aorta. Gaseous colon with moderate volume stool in colon. Appendix is not confidently visualized. No evidence of appendicitis noted. No evidence of diverticulitis. Impression: Suspicion of acute pyelonephritis.
--- NOTE | 2017-01-18 15:35 | Nuclear Medicine Report ---
LUNG SCAN, VENTILATION AND PERFUSION: History: Chest pain, Findings: Inhalation of Xenon gas demonstrates a normal distribution of the activity throughout both lungs. The wash out phases show no focal retention of activity. After injection of Technetium 99m macroaggregated albumin gamma camera imaging of the lungs in multiple projections demonstrates normal pulmonary contours with a homogeneous distribution of activity. No focal areas of perfusion deficiency are identified. IMPRESSION: Normal study.
[2017-01-18 16:21] LABS: Bilirubin,Urine NEG (Negative); Blood,Urine SM (Negative); Ketones,Urine NEG (Negative); Leukocyte Esterase,Urine TR (Negative); Nitrite,Urine NEG (Negative); Urobilinogen,Urine < 2.0 mg/dL (<2.0)
[2017-01-18 20:03] VITALS: BP 177/107
== END 2017-01-18 18:30 | disposition home or self-care (01) ==
LOC: ED 03:42
DX: R11.2 Nausea with vomiting, unspecified (principal); R10.9 Unspecified abdominal pain; R09.1 Pleurisy; E11.9 Type 2 diabetes mellitus without complications; J45.909 Unspecified asthma, uncomplicated; Z90.89 Acquired absence of other organs; Z98.51 Tubal ligation status; Z79.4 Long term (current) use of insulin
CPT/HCPCS: 36415; 71010; 74177; 78582; 80053; 81001; 82550; 82553; 83690; 84484; 84703; 85025; 93005; 93010; 96361; 96374; 96375; 96376; 99284; A9540; A9558; J1200; J2060; J2405; J3010; J7030; Q9967

== ENCOUNTER 2017-02-10 07:32 | Inpatient (IN) | payer SELFPAY ==
[2017-02-10] MEDS ORDERED: PROTONIX IV ONE (10:46)
[2017-02-10] MEDS ORDERED: NACL 0.9% 1000 ML 1,000 ML IV ONE ×2 (10:46→13:49)
[2017-02-10] MEDS ORDERED: ZOFRAN IV ONE (10:46)
[2017-02-10] MEDS ORDERED: DILAUDID IV ONE ×2 (10:47→13:49)
--- NOTE | 2017-02-10 10:54 | Emergency Department Report ---
ED Abdominal Pain HPI - General Chief Complaint: Abdominal Pain Stated Complaint: ABD PAIN X 3 DAYS Time Seen by Provider: 02/10/17 10:18 Source: patient Mode of arrival: Ambulatory Limitations: No Limitations - History of Present Illness MD Complaint: abdominal pain -: Gradual Location: diffuse Radiation: none Migration to: no migration Severity scale (0 -10): 7 Quality: cramping, aching Consistency: intermittent Improves With: nothing Worsens With: nothing Associated Symptoms: vomiting. denies: diarrhea, fever, chills, constipation, dysuria, hematemesis, hematochezia, melena, hematuria (residency) - Related Data Home Medications Medication Instructions Recorded Confirmed Last Taken Insulin Glargine [Lantus] 20 unit SUB-Q QHS 01/18/17 01/18/17 01/17/17 Insulin NPH, Human [NovoLIN N] 10 unit SQ TIDAC 01/18/17 01/18/17 01/17/17 Previous Rx's Medication Instructions Recorded Last Taken Type HYDROcodone/APAP 5-325 [[place] 1 - 2 each PO Q6HR PRN #10 tablet 01/18/17 Unknown Rx 5/325] Metoclopramide [Reglan] 10 mg PO TID PRN #30 tab 01/18/17 Unknown Rx Promethazine [Phenergan] 25 mg [place] Q6HR PRN #10 supp.rect 01/18/17 Unknown Rx Sulfamethoxazole/Trimethoprim 1 each PO BID #14 tablet 01/18/17 Unknown Rx [Bactrim DS TAB] Allergies Allergy/AdvReac Type Severity Reaction Status Date / Time ketorolac tromethamine Allergy Shortness Verified 02/22/16 14:27 [From Toradol] of Breath morphine Allergy Itching Verified 02/22/16 14:27 dicyclomine HCl [From Bentyl] AdvReac Hives Verified 10/28/16 04:49 ED Review of Systems ROS: Stated complaint: ABD PAIN X 3 DAYS Other details as noted in HPI Constitutional: denies: chills, fever Eyes: denies: eye pain, eye discharge, vision change ENT: denies: ear pain, throat pain Respiratory: denies: cough, shortness of breath, wheezing Cardiovascular: denies: chest pain, palpitations Endocrine: no symptoms reported Gastrointestinal: abdominal pain (was urgent cares only like a is a). denies: nausea, diarrhea Genitourinary: denies: urgency, dysuria, discharge Musculoskeletal: denies: back pain, joint swelling, arthralgia Skin: denies: rash, lesions Neurological: denies: headache, weakness, paresthesias Psychiatric: denies: anxiety, depression Hematological/Lymphatic: denies: easy bleeding, easy bruising ED Past Medical Hx - Past Medical History Hx Congestive Heart Failure: No Hx Diabetes: Yes Hx Asthma: Yes Hx COPD: No Additional medical history: gastroparesis (no official dx) - Surgical History Hx Cholecystectomy: Yes Hx Appendectomy: Yes Additional Surgical History: tubal ligation. x 2 - Social History Smoking Status: Never Smoker Substance Use Type: Alcohol - Medications Home Medications: Home Medications Medication Instructions Recorded Confirmed Last Taken Type HYDROcodone/APAP 5-325 [[place] 1 - 2 each PO Q6HR PRN #10 tablet 01/18/17 Unknown Rx 5/325] Insulin Glargine [Lantus] 20 unit SUB-Q QHS 01/18/17 01/18/17 01/17/17 History Insulin NPH, Human [NovoLIN N] 10 unit SQ TIDAC 01/18/17 01/18/17 01/17/17 History Metoclopramide [Reglan] 10 mg PO TID PRN #30 tab 01/18/17 Unknown Rx Promethazine [Phenergan] 25 mg [place] Q6HR PRN #10 supp.rect 01/18/17 Unknown Rx Sulfamethoxazole/Trimethoprim 1 each PO BID #14 tablet 01/18/17 Unknown Rx [Bactrim DS TAB] ED Physical Exam - General Limitations: No Limitations General appearance: alert, anxious, in distress - Head Head exam: Present: atraumatic, normocephalic - Eye Eye exam: Present: normal appearance - ENT ENT exam: Present: mucous membranes moist - Neck Neck exam: Present: normal inspection - Respiratory Respiratory exam: Present: normal lung sounds bilaterally. Absent: respiratory distress - Cardiovascular Cardiovascular Exam: Present: regular rate, normal rhythm. Absent: systolic murmur, diastolic murmur, rubs, gallop - GI/Abdominal GI/Abdominal exam: Present: soft, tenderness, normal bowel sounds. Absent: distended, guarding, rebound (leg is no pretty well a), organomegaly, mass, bruit, pulsatile mass, hernia (history working in the) - Extremities Exam Extremities exam: Present: normal inspection - Back Exam Back exam: Present: normal inspection - Neurological Exam Neurological exam: Present: alert, oriented X3 - Psychiatric Psychiatric exam: Present: normal affect, normal mood - Skin Skin exam: Present: warm, dry, intact, normal color. Absent: rash ED Course Vital Signs 02/10/17 02/10/17 07:42 11:37 Temperature 98.7 F Pulse Rate 98 H 99 H Respiratory 24 24 Rate Blood Pressure 195/128 Blood Pressure 157/89 [Left] O2 Sat by Pulse 100 98 Oximetry ED Medical Decision Making - Lab Data Result diagrams: 02/10/17 12:43 02/10/17 12:43 - Radiology Data Radiology results: report reviewed, image reviewed - Medical Decision Making Will need admission for abdominal pain , intractable nausea and vomiting, labs and ct consistent with pyelo , gave her fluids and levaquin here in the ER, will admit to dr. martin, Critical care attestation.: If time is entered above; I have spent that time in minutes in the direct care of this critically ill patient, excluding procedure time. ED Disposition Clinical Impression: Vomiting, Dehydration, Urinary tract infection, Abdominal pain Disposition: OP ADMITTED IP TO THIS HOSP Is pt being admited?: Yes Does the pt Need Aspirin: No Condition: Good Instructions: Abdominal Pain (ED) Referrals: PRIMARY CARE, [Primary Care Provider] - 3-5 Days Time of Disposition: 14:20
[2017-02-10] MEDS ORDERED: BENADRYL ONE (11:07)
[2017-02-10] MEDS ORDERED: BENADRYL IV ONE (11:20)
[2017-02-10 11:29] LABS: Bacteria,Urine 1+ /HPF (Negative); Bilirubin,Urine NEG (Negative); Blood,Urine SM (Negative); Ketones,Urine NEG (Negative); Leukocyte Esterase,Urine LG (Negative); Mucus,Urine FEW /HPF; Nitrite,Urine NEG (Negative); Urobilinogen,Urine < 2.0 mg/dL (<2.0)
[2017-02-10] MEDS ORDERED: NACL ONE (11:49)
[2017-02-10] MEDS ORDERED: DILAUDID ONE (13:07)
[2017-02-10 13:23] LABS: Alanine Aminotransferase 15 units/L (7-56); Albumin 3.6 g/dL (3.9-5); Albumin/Globulin Ratio 0.9 %; Alkaline Phosphatase 89 units/L (35-129); Anion Gap 18 mmol/L; BUN/Creatinine Ratio 11.42; Bilirubin,Total 0.3 mg/dL (0.1-1.2); Blood Urea Nitrogen 8 mg/dL (7-17); Carbon Dioxide 26 mmol/L (22-30); Chloride 96.1 mmol/L (98-107); Glucose 313 mg/dL (65-100); Lipase 25 units/L (13-60); Potassium 3.7 mmol/L (3.6-5.0); Sodium 136 mmol/L (137-145); Total Protein 7.8 g/dL (6.3-8.2)
--- NOTE | 2017-02-10 13:27 | Cat Scan Report ---
CT SCAN OF THE ABDOMEN AND PELVIS WITH CONTRAST: HISTORY: Abdominal pain. TECHNIQUE: Helical CT in 1.25mm intervals following IV contrast. Sagittal and coronal reconstructions. FINDINGS: The liver is normal in size and is without focal defect. No gallstones or biliary dilatation are noted. Cholecystectomy changes. The spleen and pancreas demonstrate a normal size and attenuation with no evidence of abnormal mass. The kidneys are normal size and position. Very subtle perfusion defects are suggested in the right kidney. The left kidney is unremarkable. The bladder demonstrates mild diffuse wall thickening which could be related to a cystitis. The adrenal glands are normal. There is no intestinal obstruction or ascites. Appendectomy changes are suspected. The abdominal aorta is normal. The uterus and adnexa are unremarkable. There is no evidence of peritoneal air or fluid. There is no evidence of any abnormal masses or fluid collections within the pelvis. No adenopathy is identified. IMPRESSION: Mild bladder wall thickening, correlate for cystitis. There also appears to be very subtle perfusion defects in the right kidney. Early pyelonephritis could be considered. Please correlate with the patient's clinical presentation.
[2017-02-10 13:35] LABS: Basophils % (Auto) 1.2 % (0.0-1.8); Eosinophils % (Auto) 0.2 % (0.0-4.3); Hematocrit 30.9 % (30.3-42.9); Hemoglobin 9.9 gm/dl (10.1-14.3); Mean Corpuscular HGB Conc 32 % (30-34); Mean Corpuscular Volume 80 fl (79-97); Platelet Count 265 K/mm3 (140-440); Red Blood Count 3.87 M/mm3 (3.65-5.03); Red Cell Distribution Width 18.5 % (13.2-15.2); White Blood Count 5.9 K/mm3 (4.5-11.0)
[2017-02-10] MEDS ORDERED: LEVAQUIN 750MG/150ML 750 MG/150 ML BAG IV ONE (13:49)
[2017-02-10 14:01] LABS: Mean Corpuscular Hemoglobin 26 pg (28-32)
--- NOTE | 2017-02-10 19:30 | History and Physical Report ---
History of Present Illness Date of examination: 02/10/17 Date of admission: 02/10/2017 Chief complaint: Right flank pain for 2 days History of present illness: This is a 36-year-old female with h/o presented with vomiting 2 and right flank pain for 2-3 days. No fever no chills. Patient is a 7 diabetes and asthma. Also gastroparesis. No dysuria. No chest pain or palpitations. No recent travel. Pain is about 6-7 on a scale of 1-10. Sharp in nature. Past medical History: h/o diabetes asthma gastroparesis c Past surgical History: s/p cholecystectomy appendectomy tubal ligation and C- section 2 Social History: Lives with family, denies any smoking, drinking and elicit drug abuse. Family History: Significant for hypertension Review of System: Constitutional: no fever, no chills, no weight loss Ears, eyes, nose, mouth and throat: no nasal congestion, no nasal discharge, no sinus pressure, no vision change, no red eye. Neck: No neck pain or rigidity. Cardiovascular: No chest pain, no orthopnea, no palpitations, no leg swelling Respiratory: No shortness of breath, no cough, no congestion, no wheezing Gastrointestinal: abdominal pain localized to right flank. Pain is about 7 on scale of 1-10 and sharp in nature. Genitourinl: no dysuria, no hematuria Musculoskeletal: no joint swelling or muscle ache Integumentary: no rash, no pruritis Neurological: no parathesias, no numbness, no tingling Endocrine: no cold or heat intolerance, no polyuria or polydipsia Hematologic/Lymphatic: no easy bruising, no easy bleeding, no gland swelling Allergic/Immunologic: no urticaria, no angioedema. Medications and Allergies Allergies Allergy/AdvReac Type Severity Reaction Status Date / Time ketorolac tromethamine Allergy Shortness Verified 02/22/16 14:27 [From Toradol] of Breath morphine Allergy Itching Verified 02/22/16 14:27 dicyclomine HCl [From Bentyl] AdvReac Hives Verified 10/28/16 04:49 Home Medications Medication Instructions Recorded Confirmed Last Taken Type Insulin Glargine [Lantus] 20 unit SUB-Q QHS 01/18/17 02/10/17 01/17/17 History Insulin Aspart Prot/Aspart(Nf) 0 units SQ AC 02/10/17 02/10/17 Unknown History [Novolog Mix 70/30] Exam - Physical Exam Narrative exam: Middle aged female lying in bed in slight discomfort. - Constitutional Vitals: Temp Pulse Resp BP Pulse Ox 98.7 F 88 18 162/98 100 02/10/17 07:42 02/10/17 19:26 02/10/17 19:26 02/10/17 19:26 02/10/17 19:26 General appearance: Present: no acute distress, well-nourished - EENT Eyes: Present: PERRL ENT: hearing intact, clear oral mucosa - Neck Neck: Present: supple, normal ROM - Respiratory Respiratory effort: normal Respiratory: bilateral: CTA - Cardiovascular Heart rate: 80 Rhythm: regular Heart Sounds: Present: S1 & S2. Absent: rub, click - Extremities Extremities: pulses symmetrical, No edema Peripheral Pulses: within normal limits - Abdominal General gastrointestinal: Present: soft, non-tender, tender (right flank), non- distended, normal bowel sounds Female genitourinary: Present: normal - Rectal Rectal Exam: deferred - Integumentary Integumentary: Present: clear, warm, dry - Musculoskeletal Musculoskeletal: gait normal, strength equal bilaterally - Psychiatric Psychiatric: appropriate mood/affect, intact judgment & insight - Neurologic Neurologic: CNII-XII intact, moves all extremities - Allied Health Allied health notes reviewed: nursing, case management Results - Labs CBC & Chem 7: 02/10/17 12:43 02/10/17 12:43 Labs: Laboratory Last Values WBC 5.9 K/mm3 (4.5-11.0) 02/10/17 12:43 RBC 3.87 M/mm3 (3.65-5.03) 02/10/17 12:43 Hgb 9.9 gm/dl (10.1-14.3) L 02/10/17 12:43 Hct 30.9 % (30.3-42.9) 02/10/17 12:43 MCV 80 fl (79-97) 02/10/17 12:43 MCH 26 pg (28-32) L 02/10/17 12:43 MCHC 32 % (30-34) 02/10/17 12:43 RDW 18.5 % (13.2-15.2) H 02/10/17 12:43 Plt Count 265 K/mm3 (140-440) 02/10/17 12:43 Lymph % (Auto) 20.3 % (13.4-35.0) 02/10/17 12:43 [place] % (Auto) 6.1 % (0.0-7.3) 02/10/17 12:43 Eos % (Auto) 0.2 % (0.0-4.3) 02/10/17 12:43 Baso % (Auto) 1.2 % (0.0-1.8) 02/10/17 12:43 Lymph # 1.2 K/mm3 (1.2-5.4) 02/10/17 12:43 [place] # 0.4 K/mm3 (0.0-0.8) 02/10/17 12:43 Eos # 0.0 K/mm3 (0.0-0.4) 02/10/17 12:43 Baso # 0.1 K/mm3 (0.0-0.1) 02/10/17 12:43 Seg Neutrophils % 72.2 % (40.0-70.0) H 02/10/17 12:43 Seg Neutrophils # 4.3 K/mm3 (1.8-7.7) 02/10/17 12:43 Sodium 136 mmol/L (137-145) L 02/10/17 12:43 Potassium 3.7 mmol/L (3.6-5.0) 02/10/17 12:43 Chloride 96.1 mmol/L (98-107) L 02/10/17 12:43 Carbon Dioxide 26 mmol/L (22-30) 02/10/17 12:43 Anion Gap 18 mmol/L 02/10/17 12:43 BUN 8 mg/dL (7-17) 02/10/17 12:43 Creatinine 0.7 mg/dL (0.7-1.2) 02/10/17 12:43 Estimated GFR > 60 ml/min 02/10/17 12:43 BUN/Creatinine Ratio 11.42 % 02/10/17 12:43 Glucose 313 mg/dL (65-100) H 02/10/17 12:43 Calcium 9.0 mg/dL (8.4-10.2) 02/10/17 12:43 Total Bilirubin 0.3 mg/dL (0.1-1.2) 02/10/17 12:43 AST 23 units/L (5-40) 02/10/17 12:43 ALT 15 units/L (7-56) 02/10/17 12:43 Alkaline Phosphatase 89 units/L (35-129) 02/10/17 12:43 Total Protein 7.8 g/dL (6.3-8.2) 02/10/17 12:43 Albumin 3.6 g/dL (3.9-5) L 02/10/17 12:43 Albumin/Globulin Ratio 0.9 % 02/10/17 12:43 Lipase 25 units/L (13-60) 02/10/17 12:43 Urine Color Yellow (Yellow) 02/10/17 Unknown Urine Turbidity Slightly-cloudy (Clear) 02/10/17 Unknown Urine pH 5.0 (5.0-7.0) 02/10/17 Unknown Ur Specific [place] 1.009 (1.003-1.030) 02/10/17 Unknown Urine Protein 100 mg/dl mg/dL (Negative) 02/10/17 Unknown Urine Glucose (UA) >=500 mg/dL (Negative) 02/10/17 Unknown Urine Ketones Neg mg/dL (Negative) 02/10/17 Unknown Urine Blood Sm (Negative) 02/10/17 Unknown Urine Nitrite Neg (Negative) 02/10/17 Unknown Urine Bilirubin Neg (Negative) 02/10/17 Unknown Urine Urobilinogen < 2.0 mg/dL (<2.0) 02/10/17 Unknown Ur Leukocyte Esterase Lg (Negative) 02/10/17 Unknown Urine WBC (Auto) 111.0 /HPF (0.0-6.0) H 02/10/17 Unknown Urine RBC (Auto) 7.0 /HPF (0.0-6.0) 02/10/17 Unknown U Epithel Cells (Auto) 7.0 /HPF (0-13.0) 02/10/17 Unknown Urine Bacteria (Auto) 1+ /HPF (Negative) 02/10/17 Unknown Urine Mucus Few /HPF 02/10/17 Unknown Urine HCG, Qual Negative (Negative) 02/10/17 Unknown Short CBC 02/10/17 Range/Units 12:43 WBC 5.9 (4.5-11.0) K/mm3 Hgb 9.9 L (10.1-14.3) gm/dl Hct 30.9 (30.3-42.9) % Plt Count 265 (140-440) K/mm3 BMP 02/10/17 12:43 Sodium 136 L Potassium 3.7 Chloride 96.1 L Carbon Dioxide 26 BUN 8 Creatinine 0.7 Glucose 313 H Calcium 9.0 Liver Function 02/10/17 Range/Units 12:43 Total Bilirubin 0.3 (0.1-1.2) mg/dL AST 23 (5-40) units/L ALT 15 (7-56) units/L Alkaline Phosphatase 89 (35-129) units/L Albumin 3.6 L (3.9-5) g/dL Urine 02/10/17 Range/Units Unknown Urine Color Yellow (Yellow) Urine pH 5.0 (5.0-7.0) Ur Specific [place] 1.009 (1.003-1.030) Urine Protein 100 mg/dl (Negative) mg/dL Urine Glucose (UA) >=500 (Negative) mg/dL - Imaging and Cardiology CT scan - abdomen: report reviewed (CT abdomen reveals mild bladder wall thickening correlate for cystitis. Subtle perfusion defects in the right kidney. Early pyelonephritis should be considered.) Assessment and Plan Assessment and plan: #1 Acute pyelonephritis: Patient started on IV fluids and IV Rocephin 2 g IV piggyback every 24 pending urine cultures. Patient has white blood cells of heart 111 in the urine. Also has right flank pain. Clinical picture and abdominal CT consistent with acute pyelonephritis. Check urine cultures. #2 insulin-dependent diabetes: Continue her home insulin and coverage. Check hemoglobin A1c. #3 asthma: Bronchodilators as necessary on a when necessary basis. Not active at this point. #4 gastroparesis: Inactive at this point. No further treatment . #5 DVT prophylaxis: Lovenox 40 mg subcutaneous daily. Advance Directives: Yes (full code) VTE prophylaxis?: Chemical Plan of care discussed with patient/family: Yes
[2017-02-10] MEDS ORDERED: DULCOLAX PR PRN (19:42)
[2017-02-10] MEDS ORDERED: TYLENOL PO PRN (19:42)
[2017-02-10] MEDS ORDERED: MILK OF MAGNESIA PO PRN (19:42)
[2017-02-10] MEDS ORDERED: ZOFRAN IV PRN (19:42)
[2017-02-10] MEDS ORDERED: PERCOCET 5/325 PO PRN (19:45)
[2017-02-10] MEDS ORDERED: NOVOLOG SUB-Q SCH (20:00)
[2017-02-10] MEDS: NACL 0.9% 1000 ML 1,000 ML IV SCH (20:00)
[2017-02-10] MEDS: DILAUDID IV PRN (20:01)
[2017-02-10 20:39] LABS: Total Iron Binding Capacity 417.2 mcg/dL (250-450)
[2017-02-10] MEDS: ROCEPHIN/NS 2 GM/100 ML 2 GM/100 ML BAG IV SCH (21:38)
[2017-02-10] MEDS ORDERED: NON-FORMULARY (Insulin Glargine 20 UNIT) SUB-Q SCH (22:00)
[2017-02-10] MEDS: LEVEMIR SUB-Q SCH (22:27)
--- NOTE | 2017-02-11 01:29 | Admit Criteria Form ---
Admission Criteria Documentation: PYELONEPHRITIS, ACUTE Clinical Indications for Admission to Inpatient Care (Place 'X' for any and all applicable criteria): Admission is indicated for ANY ONE of the following 1,2,3,4,5 [ ]I. Outpatient treatment has failed or is not feasible (eg, multidrug- resistant organism).5 [ ]II. beyond 24 weeks' gestation6 [ ]III. Hemodynamic instability [ ]IV. Immunocompromised state (eg, AIDS, diabetes, sickle cell disease) [ ]V. Known renal or urologic abnormalities (eg, indwelling catheter, structural abnormalities, renal calculi, urinary stent, previous urologic surgery) [ ]. Condition that requires drainage procedure, including ANY ONE of the following: [ ]a) Urinary obstruction [ ]b) Pyelitis [ ]c) Pyonephrosis [ ]d) Renal or perinephric abscess [ ]e) Emphysematous pyelonephritis 7 [X ]VII. Inpatient admission required rather than observation care (Also use Pyelonephritis, Acute: Observation Care Criteria as appropriate) because of ANY ONE of the following: [ ]a) High fever or infection requiring inpatient admission as indicated by ANY ONE of [id number] [ ]A. Documented bacteremia [ ]B. Temp>104.9 [id number] (oral) [ ]C. Temp>103.10F (oral) or <96.80F (rectal) that does not respond to all emergency treatment [ ]b) Acute renal failure [X ]c) Other significant finding or clinical condition judged not to be within the scope of observation care [ ]d) IV fluid to replace significant ongoing (eg, for over 24hrs) losses (> 3 L/m2 per day) [ ]e) Other condition,treatment or monitoring requiring inpatient admission The original [employer] content created by [employer] has been revised. The portions of the content which have been revised are identified through the use of italic text or in bold, and [employer] [employer] has neither reviewed nor approved the modified material. All other unmodified content is copyright [employer]. Please see references footnoted in the original [employer] edition 2016 Admission Criteria Met: Yes
[2017-02-11] MEDS: DILAUDID IV PRN ×5 (04:04→20:34)
[2017-02-11 05:44] LABS: Basophils % (Auto) 0.6 % (0.0-1.8); Eosinophils % (Auto) 2.2 % (0.0-4.3); Hematocrit 30.5 % (30.3-42.9); Hemoglobin 9.8 gm/dl (10.1-14.3); Mean Corpuscular HGB Conc 32 % (30-34); Mean Corpuscular Volume 79 fl (79-97); Platelet Count 266 K/mm3 (140-440); Red Blood Count 3.86 M/mm3 (3.65-5.03); Red Cell Distribution Width 18.7 % (13.2-15.2)
[2017-02-11 05:54] LABS: Mean Corpuscular Hemoglobin 25 pg (28-32)
[2017-02-11 06:00] LABS: Alanine Aminotransferase 12 units/L (7-56); Albumin 3.3 g/dL (3.9-5); Albumin/Globulin Ratio 0.8 %; Alkaline Phosphatase 84 units/L (35-129); Anion Gap 17 mmol/L; Bilirubin,Total < 0.2 mg/dL (0.1-1.2); Blood Urea Nitrogen 6 mg/dL (7-17); Calcium 8.8 mg/dL (8.4-10.2); Carbon Dioxide 29 mmol/L (22-30); Chloride 99.7 mmol/L (98-107); Glucose 171 mg/dL (65-100); Potassium 3.2 mmol/L (3.6-5.0); Sodium 142 mmol/L (137-145); Total Protein 7.4 g/dL (6.3-8.2)
[2017-02-11] MEDS: NOVOLOG SUB-Q SCH ×3 (09:30→16:39)
[2017-02-11] MEDS: NACL 0.9% 1000 ML 1,000 ML IV SCH (09:31)
[2017-02-11] MEDS: LOVENOX SUB-Q SCH (09:35)
--- NOTE | 2017-02-11 10:17 | Progress Note ---
Assessment and Plan Assessment and plan: Acute pyelonephritis - CT showed acute pyelonephritis - On IV ceftriaxone - Patient has nausea and vomiting so not able to tolerate by mouth medications Gastroparesis - on zofran - Pain control Diabetes mellitus - On sliding scale insulin and long-acting insulin prophylaxis - On Lovenox Disposition - likely discharge home if she tolerated Po antibiotics. History Interval history: Patient complains of abdominal pain. Didn't have any nausea or vomiting since this morning. Hospitalist Physical - Physical exam Narrative exam: Not in cardiopulmonary distress. The patient appeared well nourished and normally developed. Vital signs as documented. Head exam is unremarkable. No scleral icterus . Neck is without jugular venous distension, thyromegaly, or carotid bruits. Lungs are clear to auscultation. Cardiac exam reveals regular rate and Rhythm. First and second heart sounds normal. No murmurs, rubs or gallops. Abdominal exam reveals mild abdominal tenderness, no guarding or rigidity. Extremities are nonedematous and both femoral and pedal pulses are normal. No CVA tenderness. CANDLEMAKER: Alert and oriented 3. No focal weakness. - Constitutional Vitals: Temp Pulse Resp BP Pulse Ox 97.8 F 64 16 132/80 98 02/11/17 08:02 02/11/17 08:02 02/11/17 08:02 02/11/17 08:02 02/11/17 08:02 General appearance: Present: no acute distress, well-nourished Results - Labs CBC & Chem 7: 02/11/17 04:31 02/11/17 04:31 Labs: Laboratory Last Values WBC 5.0 K/mm3 (4.5-11.0) 02/11/17 04:31 RBC 3.86 M/mm3 (3.65-5.03) 02/11/17 04:31 Hgb 9.8 gm/dl (10.1-14.3) L 02/11/17 04:31 Hct 30.5 % (30.3-42.9) 02/11/17 04:31 MCV 79 fl (79-97) 02/11/17 04:31 MCH 25 pg (28-32) L 02/11/17 04:31 MCHC 32 % (30-34) 02/11/17 04:31 RDW 18.7 % (13.2-15.2) H 02/11/17 04:31 Plt Count 266 K/mm3 (140-440) 02/11/17 04:31 Lymph % (Auto) 42.0 % (13.4-35.0) H 02/11/17 04:31 [place] % (Auto) 9.9 % (0.0-7.3) H 02/11/17 04:31 Eos % (Auto) 2.2 % (0.0-4.3) 02/11/17 04:31 Baso % (Auto) 0.6 % (0.0-1.8) 02/11/17 04:31 Lymph # 2.1 K/mm3 (1.2-5.4) 02/11/17 04:31 [place] # 0.5 K/mm3 (0.0-0.8) 02/11/17 04:31 Eos # 0.1 K/mm3 (0.0-0.4) 02/11/17 04:31 Baso # 0.0 K/mm3 (0.0-0.1) 02/11/17 04:31 Seg Neutrophils % 45.3 % (40.0-70.0) 02/11/17 04:31 Seg Neutrophils # 2.3 K/mm3 (1.8-7.7) 02/11/17 04:31 Sodium 142 mmol/L (137-145) 02/11/17 04:31 Potassium 3.2 mmol/L (3.6-5.0) L 02/11/17 04:31 Chloride 99.7 mmol/L (98-107) 02/11/17 04:31 Carbon Dioxide 29 mmol/L (22-30) 02/11/17 04:31 Anion Gap 17 mmol/L 02/11/17 04:31 BUN 6 mg/dL (7-17) L 02/11/17 04:31 Creatinine 0.6 mg/dL (0.7-1.2) L 02/11/17 04:31 Estimated GFR > 60 ml/min 02/11/17 04:31 BUN/Creatinine Ratio 10.00 % 02/11/17 04:31 Glucose 171 mg/dL (65-100) H 02/11/17 04:31 POC Glucose 185 (70-105) H 02/11/17 06:14 Hemoglobin A1c 11.1 % (4-6) H 02/10/17 12:43 Calcium 8.8 mg/dL (8.4-10.2) 02/11/17 04:31 Iron 35 ug/dL (37-170) L 02/10/17 12:43 TIBC 417.20 mcg/dL (250-450) 02/10/17 12:43 % Saturation 8.39 % 02/10/17 12:43 Transferrin 298 mg/dl (192-382) 02/10/17 12:43 Total Bilirubin < 0.2 mg/dL (0.1-1.2) 02/11/17 04:31 AST 16 units/L (5-40) 02/11/17 04:31 ALT 12 units/L (7-56) 02/11/17 04:31 Alkaline Phosphatase 84 units/L (35-129) 02/11/17 04:31 Total Protein 7.4 g/dL (6.3-8.2) 02/11/17 04:31 Albumin 3.3 g/dL (3.9-5) L 02/11/17 04:31 Albumin/Globulin Ratio 0.8 % 02/11/17 04:31 Lipase 25 units/L (13-60) 02/10/17 12:43 Urine Color Yellow (Yellow) 02/10/17 Unknown Urine Turbidity Slightly-cloudy (Clear) 02/10/17 Unknown Urine pH 5.0 (5.0-7.0) 02/10/17 Unknown Ur Specific [place] 1.009 (1.003-1.030) 02/10/17 Unknown Urine Protein 100 mg/dl mg/dL (Negative) 02/10/17 Unknown Urine Glucose (UA) >=500 mg/dL (Negative) 02/10/17 Unknown Urine Ketones Neg mg/dL (Negative) 02/10/17 Unknown Urine Blood Sm (Negative) 02/10/17 Unknown Urine Nitrite Neg (Negative) 02/10/17 Unknown Urine Bilirubin Neg (Negative) 02/10/17 Unknown Urine Urobilinogen < 2.0 mg/dL (<2.0) 02/10/17 Unknown Ur Leukocyte Esterase Lg (Negative) 02/10/17 Unknown Urine WBC (Auto) 111.0 /HPF (0.0-6.0) H 02/10/17 Unknown Urine RBC (Auto) 7.0 /HPF (0.0-6.0) 02/10/17 Unknown U Epithel Cells (Auto) 7.0 /HPF (0-13.0) 02/10/17 Unknown Urine Bacteria (Auto) 1+ /HPF (Negative) 02/10/17 Unknown Urine Mucus Few /HPF 02/10/17 Unknown Urine HCG, Qual Negative (Negative) 02/10/17 Unknown - Imaging and Cardiology CT scan - abdomen: report reviewed (Early pyelonephritis)
[2017-02-11] MEDS ORDERED: K-DUR PO ONE (11:00)
[2017-02-11] MEDS: ROCEPHIN/NS 2 GM/100 ML 2 GM/100 ML BAG IV SCH (11:29)
[2017-02-11] MEDS: LEVEMIR SUB-Q SCH (23:02)
[2017-02-12] MEDS: DILAUDID IV PRN ×4 (01:17→12:12)
[2017-02-12 05:37] LABS: Basophils % (Auto) 0.5 % (0.0-1.8); Eosinophils % (Auto) 2.4 % (0.0-4.3); Hematocrit 31.7 % (30.3-42.9); Hemoglobin 10.3 gm/dl (10.1-14.3); Mean Corpuscular HGB Conc 33 % (30-34); Mean Corpuscular Volume 80 fl (79-97); Platelet Count 259 K/mm3 (140-440); Red Blood Count 3.98 M/mm3 (3.65-5.03); Red Cell Distribution Width 18.3 % (13.2-15.2); White Blood Count 5.2 K/mm3 (4.5-11.0)
[2017-02-12 05:47] LABS: Anion Gap 15 mmol/L; BUN/Creatinine Ratio 13.33; Blood Urea Nitrogen 8 mg/dL (7-17); Calcium 9.1 mg/dL (8.4-10.2); Carbon Dioxide 29 mmol/L (22-30); Chloride 93.8 mmol/L (98-107); Glucose 207 mg/dL (65-100); Sodium 135 mmol/L (137-145)
[2017-02-12 06:02] LABS: Mean Corpuscular Hemoglobin 26 pg (28-32)
[2017-02-12 08:16] VITALS: BP 157/94
[2017-02-12] MEDS: NOVOLOG SUB-Q SCH ×2 (08:18→11:30)
--- NOTE | 2017-02-12 09:25 | Discharge Summary ---
Providers - Providers Date of Admission: 02/10/17 19:42 Attending physician: PRANAY PATTEN MD Primary care physician: BUSINESS RECORDS MANAGER Hospitalization Condition: Good Hospital course: Acute pyelonephritis - CT showed acute pyelonephritis - On IV ceftriaxone - Patient has nausea and vomiting so not able to tolerate by mouth medications Gastroparesis - on zofran - Pain control Diabetes mellitus - On sliding scale insulin and long-acting insulin prophylaxis - On Lovenox Disposition - likely discharge home if she tolerated Po antibiotics. Disposition: DISCHARGED TO HOME OR SELFCARE Time spent for discharge: 35 minutes Core Measure Documentation - Palliative Care Palliative Care/ Comfort Measures: Not Applicable - Core Measures Any of the following diagnoses?: none Exam - Constitutional Vitals: Temp Pulse Resp BP Pulse Ox 98.7 F 62 20 157/94 100 02/12/17 08:00 02/12/17 08:00 02/12/17 08:00 02/12/17 08:00 02/12/17 08:00 General appearance: Present: no acute distress, well-nourished - EENT Eyes: Present: PERRL ENT: hearing intact, clear oral mucosa - Neck Neck: Present: supple, normal ROM - Respiratory Respiratory effort: normal Respiratory: bilateral: CTA - Cardiovascular Heart Sounds: Present: S1 & S2. Absent: rub, click - Extremities Extremities: pulses symmetrical, No edema Peripheral Pulses: within normal limits - Abdominal General gastrointestinal: Present: soft, non-tender, non-distended, normal bowel sounds Female genitourinary: Present: normal - Integumentary Integumentary: Present: clear, warm, dry - Musculoskeletal Musculoskeletal: gait normal, strength equal bilaterally - Psychiatric Psychiatric: appropriate mood/affect, intact judgment & insight - Neurologic Neurologic: CNII-XII intact, moves all extremities Plan Follow up with: PRIMARY CARE, [Primary Care Provider] - 3-5 Days Prescriptions: Ondansetron [Zofran Odt] 4 mg PO Q8H PRN #30 tab.rapdis PRN Reason: Nausea oxyCODONE /ACETAMINOPHEN [Percocet 5/325 mg] 1 tab PO Q6H PRN #30 tablet PRN Reason: Pain, Moderate (4-6)
[2017-02-12] MEDS: LOVENOX SUB-Q SCH (10:00)
[2017-02-12] MEDS: ROCEPHIN/NS 2 GM/100 ML 2 GM/100 ML BAG IV SCH (12:32)
== END 2017-02-12 13:25 | disposition home or self-care (01) | DRG 690 ==
LOC: ED 07:32 → 3A 19:42
PROVIDERS: ADMIT Internal Medicine; ATTEND Internal Medicine
DX: N10 Acute pyelonephritis (principal); Z98.51 Tubal ligation status; K31.84 Gastroparesis; E86.0 Dehydration; J45.909 Unspecified asthma, uncomplicated; E11.43 Type 2 diabetes mellitus with diabetic autonomic (poly)neuropathy; Z90.49 Acquired absence of other specified parts of digestive tract; Z82.49 Family history of ischemic heart disease and other diseases of the circulatory system; Z88.6 Allergy status to analgesic agent; Z88.8 Allergy status to other drugs, medicaments and biological substances; Z90.89 Acquired absence of other organs; Z79.4 Long term (current) use of insulin
CPT/HCPCS: 36415; 74177; 80048; 80053; 81001; 81025; 82962; 83036; 83550; 83690; 85025; 87086; 96361; 96365; 96375; 96376; C9113; J0696; J1170; J1200; J1650; J1815; J1818; J1956; J2405; J7030; Q9967

== ENCOUNTER 2017-02-24 10:39 | Emergency (ER) | payer SELFPAY ==
[2017-02-24 11:07] VITALS: BP 145/87
== END 2017-02-24 11:15 | disposition left against medical advice (07) ==
LOC: ED 10:39
DX: R10.9 Unspecified abdominal pain (principal); Z53.21 Procedure and treatment not carried out due to patient leaving prior to being seen by health care provider

== ENCOUNTER 2017-03-06 08:47 | Emergency (ER) | payer OTHER ==
[2017-03-06 11:06] LABS: Basophils % (Auto) 0.6 % (0.0-1.8); Eosinophils % (Auto) 0.2 % (0.0-4.3); Hematocrit 35.5 % (30.3-42.9); Hemoglobin 11.4 gm/dl (10.1-14.3); Mean Corpuscular HGB Conc 32 % (30-34); Mean Corpuscular Hemoglobin 26 pg (28-32); Mean Corpuscular Volume 81 fl (79-97); Platelet Count 255 K/mm3 (140-440); Red Blood Count 4.37 M/mm3 (3.65-5.03); Red Cell Distribution Width 19.2 % (13.2-15.2); White Blood Count 6.8 K/mm3 (4.5-11.0)
[2017-03-06 11:47] LABS: Alanine Aminotransferase 14 units/L (7-56); Albumin 3.7 g/dL (3.9-5); Albumin/Globulin Ratio 0.8 %; Alkaline Phosphatase 91 units/L (35-129); Anion Gap 19 mmol/L; BUN/Creatinine Ratio 21.66; Blood Urea Nitrogen 13 mg/dL (7-17); Calcium 9.2 mg/dL (8.4-10.2); Carbon Dioxide 24 mmol/L (22-30); Chloride 87.5 mmol/L (98-107); Glucose 341 mg/dL (65-100); Lipase 24 units/L (13-60); Potassium 3.8 mmol/L (3.6-5.0); Sodium 127 mmol/L (137-145); Total Protein 8.2 g/dL (6.3-8.2)
[2017-03-06] MEDS ORDERED: SUBLIMAZE IV ONE (12:09)
[2017-03-06] MEDS ORDERED: ZOFRAN IV ONE (12:09)
[2017-03-06] MEDS ORDERED: NACL 0.9% 1000 ML 1,000 ML IV ONE (12:09)
[2017-03-06] MEDS ORDERED: BENADRYL IV ONE (12:10)
--- NOTE | 2017-03-06 12:16 | Emergency Department Report ---
HPI - General Chief Complaint: Abdominal Pain Time Seen by Provider: 03/06/17 12:05 - HPI HPI: Room 4 The patient is a 36-year-old female presenting with chief complaint of abdominal pain. The patient has a history of chronic abdominal pain/ gastroparesis and states she has had nausea vomiting and diffuse abdominal pain for the past 4 days. Patient states it feels similar to her previous pulse gastroparesis. Patient describes the pain as constant in nature. Patient denies fever or dysuria. The patient gives her pain a score of 10/10. Patient denies diarrhea. Location: Diffuse abdomen Duration: 4 days Quality: [see above] Severity: 10/10 Modifying factors: [see above] Context: [see above] Mode of transportation: [not driving] ED Past Medical Hx - Past Medical History Hx Hypertension: Yes Hx Diabetes: Yes Hx Asthma: Yes Additional medical history: gastroparesis (no official dx) - Surgical History Hx Cholecystectomy: Yes Hx Appendectomy: Yes Additional Surgical History: tubal ligation. x 2 - Social History Smoking Status: Never Smoker Substance Use Type: None - Medications Home Medications: Home Medications Medication Instructions Recorded Confirmed Last Taken Type Insulin Glargine [Lantus VIAL] 20 unit SUB-Q QHS 01/18/17 02/10/17 01/17/17 History Insulin Aspart Prot/Aspart(Nf) 0 units SQ AC 02/10/17 02/10/17 Unknown History [NovoLOG Mix 70/30 VIAL] Amoxicillin/K Clav Tab [Augmentin 1 each PO Q12HR #10 tablet 02/12/17 Unknown Rx 500 MG TAB] Ondansetron [Zofran Odt] 4 mg PO Q8H PRN #30 tab.rapdis 02/12/17 Unknown Rx Potassium Chloride [K-Dur] 20 meq PO QDAY #10 tablet 02/12/17 Unknown Rx oxyCODONE /ACETAMINOPHEN [Percocet 1 tab PO Q6H PRN #30 tablet 02/12/17 Unknown Rx 5/325 mg] ED Review of Systems ROS: Stated complaint: ABD PAIN Other details as noted in HPI Comment: All other systems reviewed and negative Constitutional: denies: chills, fever Eyes: denies: eye pain, eye discharge, vision change ENT: denies: ear pain, throat pain Respiratory: denies: cough, shortness of breath, wheezing Cardiovascular: denies: chest pain, palpitations Endocrine: no symptoms reported Gastrointestinal: abdominal pain, nausea, vomiting. denies: diarrhea Genitourinary: denies: urgency, dysuria, discharge Musculoskeletal: denies: back pain, joint swelling, arthralgia Skin: denies: rash, lesions Neurological: as per HPI Psychiatric: denies: anxiety, depression Hematological/Lymphatic: denies: easy bleeding, easy bruising Physical Exam - Physical Exam Vital Signs: Vital Signs 03/06/17 09:23 Temperature 98.0 F Pulse Rate 102 H Respiratory 20 Rate Blood Pressure 106/103 O2 Sat by Pulse 100 Oximetry Physical Exam: GENERAL: The patient is well-developed well-nourished female lying in a stretcher appearing to be in moderate discomfort. [] HEENT: Normocephalic. Atraumatic. Extraocular motions are intact. Patient has moist mucous membranes. NECK: Supple. Trachea midline CHEST/LUNGS: Clear to auscultation. There is no respiratory distress noted. HEART/CARDIOVASCULAR: Regular. There is no tachycardia. There is no gallop rub or murmur. ABDOMEN: Abdomen is soft, nontender to palpation with stethoscope. Patient has normal bowel sounds. There is no abdominal distention. SKIN: There is no rash. There is no edema. There is no diaphoresis. NEURO: The patient is awake, alert, and oriented. The patient is cooperative. The patient has normal speech and gait. MUSCULOSKELETAL: There is no evidence of acute injury. ED Course Vital Signs 03/06/17 09:23 Temperature 98.0 F Pulse Rate 102 H Respiratory 20 Rate Blood Pressure 106/103 O2 Sat by Pulse 100 Oximetry ED Medical Decision Making - Lab Data Result diagrams: 03/06/17 10:47 03/06/17 10:47 Laboratory Tests 03/06/17 03/06/17 03/06/17 10:47 10:47 11:54 WBC 6.8 RBC 4.37 Hgb 11.4 Hct 35.5 MCV 81 MCH 26 L MCHC 32 RDW 19.2 H Plt Count 255 Lymph % (Auto) 21.1 [place] % (Auto) 5.4 Eos % (Auto) 0.2 Baso % (Auto) 0.6 Lymph # 1.4 [place] # 0.4 Eos # 0.0 Baso # 0.0 Seg Neutrophils % 72.7 H Seg Neutrophils # 5.0 Sodium 127 L Potassium 3.8 Chloride 87.5 L Carbon Dioxide 24 Anion Gap 19 BUN 13 Creatinine 0.6 L Estimated GFR > 60 BUN/Creatinine Ratio 21.66 Glucose 341 H POC Glucose Calcium 9.2 Total Bilirubin 0.50 AST 27 ALT 14 Alkaline Phosphatase 91 Total Protein 8.2 Albumin 3.7 L Albumin/Globulin Ratio 0.8 Lipase 24 Urine Color Yellow Urine Turbidity Cloudy Urine pH 5.0 Ur Specific [place] 1.009 Urine Protein 100 mg/dl Urine Glucose (UA) >=500 Urine Ketones Neg Urine Blood Mod Urine Nitrite Pos Ur Reducing Substances Not Reportable Urine Bilirubin Neg Urine Ictotest Not Reportable Urine Urobilinogen < 2.0 Ur Leukocyte Esterase Lg Urine WBC (Auto) > 182.0 H Urine RBC (Auto) 19.0 U Epithel Cells (Auto) 4.0 Urine Bacteria (Auto) 2+ Urine WBC Clumps 3+ Urine Mucus Few Urine HCG, Qual Negative 03/06/17 12:40 WBC RBC Hgb Hct MCV MCH MCHC RDW Plt Count Lymph % (Auto) [place] % (Auto) Eos % (Auto) Baso % (Auto) Lymph # [place] # Eos # Baso # Seg Neutrophils % Seg Neutrophils # Sodium Potassium Chloride Carbon Dioxide Anion Gap BUN Creatinine Estimated GFR BUN/Creatinine Ratio Glucose POC Glucose 314 H Calcium Total Bilirubin AST ALT Alkaline Phosphatase Total Protein Albumin Albumin/Globulin Ratio Lipase Urine Color Urine Turbidity Urine pH Ur Specific [place] Urine Protein Urine Glucose (UA) Urine Ketones Urine Blood Urine Nitrite Ur Reducing Substances Urine Bilirubin Urine Ictotest Urine Urobilinogen Ur Leukocyte Esterase Urine WBC (Auto) Urine RBC (Auto) U Epithel Cells (Auto) Urine Bacteria (Auto) Urine WBC Clumps Urine Mucus Urine HCG, Qual - Differential Diagnosis gastroparesis, chronic abdominal pain, malingering Critical care attestation.: If time is entered above; I have spent that time in minutes in the direct care of this critically ill patient, excluding procedure time. ED Disposition Clinical Impression: Nausea and vomiting, Diffuse abdominal pain, Hyperglycemia due to type 2 diabetes mellitus Disposition: ELOPED Is pt being admited?: No Does the pt Need Aspirin: No Condition: Undetermined Instructions: Abdominal Pain (ED), Diabetes Mellitus Type 2 in Adults (ED) Referrals: PRIMARY CARE, [Primary Care Provider] - 3-5 Days Time of Disposition: 13:19 (patient eloped)
[2017-03-06 12:38] LABS: Bacteria,Urine 2+ /HPF (Negative); Bilirubin,Urine NEG (Negative); Blood,Urine MOD (Negative); Ketones,Urine NEG (Negative); Leukocyte Esterase,Urine LG (Negative); Mucus,Urine FEW /HPF; Nitrite,Urine POS (Negative); Urobilinogen,Urine < 2.0 mg/dL (<2.0)
[2017-03-06 12:39] LABS: WBC,Urine > 182.0 /HPF (0.0-6.0)
[2017-03-06 12:47] VITALS: BP 142/92
== END 2017-03-06 13:30 | disposition left against medical advice (07) ==
LOC: ED 08:47
DX: R10.84 Generalized abdominal pain (principal); R11.2 Nausea with vomiting, unspecified; E11.65 Type 2 diabetes mellitus with hyperglycemia; I10 Essential (primary) hypertension; J45.909 Unspecified asthma, uncomplicated; Z90.49 Acquired absence of other specified parts of digestive tract; Z98.51 Tubal ligation status
CPT/HCPCS: 36415; 80053; 81001; 81025; 82962; 83690; 85025; 96361; 96374; 96375; 99283; J1200; J2405; J3010; J7030; J1815

== ENCOUNTER 2017-04-20 07:27 | Emergency (ER) | payer SELFPAY ==
[2017-04-20 07:51] VITALS: BP 155/105
[2017-04-20] MEDS ORDERED: DILAUDID IV ONE (11:04)
[2017-04-20] MEDS ORDERED: NACL 0.9% 1000 ML 1,000 ML IV ONE (11:04)
[2017-04-20] MEDS ORDERED: REGLAN IV ONE (11:04)
--- NOTE | 2017-04-20 11:10 | Emergency Department Report ---
ED Abdominal Pain HPI - General Chief Complaint: Abdominal Pain Stated Complaint: ABD PAIN Time Seen by Provider: 04/20/17 11:03 Source: patient, EMS Mode of arrival: Ambulatory Limitations: No Limitations - History of Present Illness Initial Comments: Pt is well known to myself from multiple visits to other local ERs for gastroparesis. Reports symptoms x 2 days. Denies other complaints. -: Gradual, days(s) (2) Location: epigastric Radiation: none Migration to: no migration Severity: moderate Quality: aching Consistency: constant Improves With: nothing Worsens With: nothing Associated Symptoms: nausea, vomiting - Related Data LMP (females 10-50): other (4 years) Home Medications Medication Instructions Recorded Confirmed Last Taken Insulin Glargine [Lantus VIAL] 20 unit SUB-Q QHS 01/18/17 02/10/17 01/17/17 Insulin Aspart Prot/Aspart(Nf) 0 units SQ AC 02/10/17 02/10/17 Unknown [NovoLOG Mix 70/30 VIAL] Previous Rx's Medication Instructions Recorded Last Taken Type Amoxicillin/K Clav Tab [Augmentin 1 each PO Q12HR #10 tablet 02/12/17 Unknown Rx 500 MG TAB] Ondansetron [Zofran Odt] 4 mg PO Q8H PRN #30 tab.rapdis 02/12/17 Unknown Rx Potassium Chloride [K-Dur] 20 meq PO QDAY #10 tablet 02/12/17 Unknown Rx oxyCODONE /ACETAMINOPHEN [Percocet 1 tab PO Q6H PRN #30 tablet 02/12/17 Unknown Rx 5/325 mg] Allergies Allergy/AdvReac Type Severity Reaction Status Date / Time ketorolac tromethamine Allergy Shortness Verified 04/20/17 07:48 [From Toradol] of Breath morphine Allergy Itching Verified 04/20/17 07:48 dicyclomine HCl [From Bentyl] AdvReac Hives Verified 04/20/17 07:48 ED Review of Systems ROS: Stated complaint: ABD PAIN Other details as noted in HPI Comment: All other systems reviewed and negative Constitutional: denies: chills, fever Eyes: denies: eye pain, eye discharge, vision change ENT: denies: ear pain, throat pain Respiratory: denies: cough, shortness of breath, wheezing Cardiovascular: denies: chest pain, palpitations Endocrine: no symptoms reported Gastrointestinal: abdominal pain, nausea, vomiting. denies: diarrhea Genitourinary: denies: urgency, dysuria, discharge Musculoskeletal: denies: back pain, joint swelling, arthralgia Skin: denies: rash, lesions Neurological: denies: headache, weakness, paresthesias Psychiatric: denies: anxiety, depression Hematological/Lymphatic: denies: easy bleeding, easy bruising ED Past Medical Hx - Past Medical History Hx Hypertension: Yes Hx Heart Attack/AMI: No Hx Congestive Heart Failure: No Hx Diabetes: Yes Hx Deep Vein Thrombosis: No Hx Asthma: Yes Hx COPD: No Hx HIV: No Additional medical history: gastroparesis (no official dx) - Surgical History Hx Coronary Stent: No Hx Cholecystectomy: Yes Hx Appendectomy: Yes Additional Surgical History: tubal ligation. x 2 - Social History Smoking Status: Never Smoker Substance Use Type: None - Medications Home Medications: Home Medications Medication Instructions Recorded Confirmed Last Taken Type Insulin Glargine [Lantus VIAL] 20 unit SUB-Q QHS 01/18/17 02/10/17 01/17/17 History Insulin Aspart Prot/Aspart(Nf) 0 units SQ AC 02/10/17 02/10/17 Unknown History [NovoLOG Mix 70/30 VIAL] Amoxicillin/K Clav Tab [Augmentin 1 each PO Q12HR #10 tablet 02/12/17 Unknown Rx 500 MG TAB] Ondansetron [Zofran Odt] 4 mg PO Q8H PRN #30 tab.rapdis 02/12/17 Unknown Rx Potassium Chloride [K-Dur] 20 meq PO QDAY #10 tablet 02/12/17 Unknown Rx oxyCODONE /ACETAMINOPHEN [Percocet 1 tab PO Q6H PRN #30 tablet 02/12/17 Unknown Rx 5/325 mg] ED Physical Exam - General Limitations: No Limitations General appearance: alert, in distress (rolling around bed) - Head Head exam: Present: atraumatic, normocephalic - Eye Eye exam: Present: normal appearance - ENT ENT exam: Present: mucous membranes moist - Neck Neck exam: Present: normal inspection - Respiratory Respiratory exam: Present: normal lung sounds bilaterally. Absent: respiratory distress - Cardiovascular Cardiovascular Exam: Present: regular rate, normal rhythm. Absent: systolic murmur, diastolic murmur, rubs, gallop - GI/Abdominal GI/Abdominal exam: Present: soft, tenderness, normal bowel sounds. Absent: distended, guarding, rebound, rigid - Extremities Exam Extremities exam: Present: normal inspection - Back Exam Back exam: Present: normal inspection - Neurological Exam Neurological exam: Present: alert, oriented X3 - Psychiatric Psychiatric exam: Present: normal affect, normal mood - Skin Skin exam: Present: warm, dry, intact, normal color. Absent: rash ED Course Vital Signs 04/20/17 04/20/17 07:48 11:45 Temperature 98.1 F Pulse Rate 99 H Respiratory 24 18 Rate Blood Pressure 155/105 O2 Sat by Pulse 98 100 Oximetry - Reevaluation(s) Reevaluation #1: 04/20/17 13:37 Multiple attempts at placing an IV and obtaining blood have failed. No vomiting while here for past 6 hours. She exhibits drug seeking behavior, consistent with past experience. I offered to place an IO which she adamantly refuses. Will give subq/IM meds and re-evaluate. Reevaluation #2: 04/20/17 15:32 Pt left immediately after receiving IM Dilaudid. Labs were unable to be obtained. She was stable at time of elopement. ED Medical Decision Making - Lab Data glc 314 - Medical Decision Making Pt frequently visits local EDs. Today, labs were unable to be obtained. Advised I wanted to give her insulin but she got up and left immediately after receiving IM Dilaudid. No labs were obtained from patient due to poor access and her uncooperative state. Rechecked multiple times and after 60 minutes, she had not returned. - Differential Diagnosis gastroparesis, drug seeking Critical care attestation.: If time is entered above; I have spent that time in minutes in the direct care of this critically ill patient, excluding procedure time. ED Disposition Clinical Impression: Chronic pain syndrome Disposition: Z-07 ELOPED Is pt being admited?: No Condition: Stable Instructions: Abdominal Pain (ED) Referrals: PRIMARY CARE, [Primary Care Provider] - 3-5 Days Time of Disposition: 15:35
[2017-04-20] MEDS ORDERED: DILAUDID ONE (14:10)
[2017-04-20] MEDS ORDERED: REGLAN ONE (14:10)
== END 2017-04-20 14:50 | disposition left against medical advice (07) ==
LOC: ED 07:27
DX: G89.4 Chronic pain syndrome (principal); R10.13 Epigastric pain; R11.2 Nausea with vomiting, unspecified; I10 Essential (primary) hypertension; E11.9 Type 2 diabetes mellitus without complications; J45.909 Unspecified asthma, uncomplicated; K31.84 Gastroparesis; Z79.4 Long term (current) use of insulin; Z90.49 Acquired absence of other specified parts of digestive tract; Z88.6 Allergy status to analgesic agent
CPT/HCPCS: 82962; 96372; 96374; 99283; J1170; J2765; J1815

== ENCOUNTER 2017-07-16 05:56 | Emergency (ER) | payer SELFPAY ==
[2017-07-16 08:00] LABS: Basophils % (Auto) 0.6 % (0.0-1.8); Hematocrit 31.4 % (30.3-42.9); Hemoglobin 10.1 gm/dl (10.1-14.3); Mean Corpuscular HGB Conc 32 % (30-34); Mean Corpuscular Hemoglobin 26 pg (28-32); Mean Corpuscular Volume 82 fl (79-97); Platelet Count 254 K/mm3 (140-440); Red Blood Count 3.83 M/mm3 (3.65-5.03); Red Cell Distribution Width 17.2 % (13.2-15.2); White Blood Count 14.9 K/mm3 (4.5-11.0)
[2017-07-16 08:26] LABS: Alanine Aminotransferase 15 units/L (7-56); Albumin 3.5 g/dL (3.9-5); Albumin/Globulin Ratio 0.7 %; Alkaline Phosphatase 105 units/L (35-129); Anion Gap 25 mmol/L; Blood Urea Nitrogen 12 mg/dL (7-17); Carbon Dioxide 24 mmol/L (22-30); Chloride 86.2 mmol/L (98-107); Glucose 305 mg/dL (65-100); Lipase 33 units/L (13-60); Potassium 3.8 mmol/L (3.6-5.0); Sodium 131 mmol/L (137-145); Total Protein 8.2 g/dL (6.3-8.2)
[2017-07-16 15:08] LABS: Bilirubin,Urine NEG (Negative); Blood,Urine SM (Negative); Ketones,Urine NEG (Negative); Leukocyte Esterase,Urine LG (Negative); Nitrite,Urine NEG (Negative); Protein,Urine <15 mg/dL mg/dL (Negative); Urobilinogen,Urine < 2.0 mg/dL (<2.0)
[2017-07-16 15:10] LABS: WBC,Urine > 182.0 /HPF (0.0-6.0)
[2017-07-16] MEDS ORDERED: NACL 0.9% 1000 ML 2,000 ML IV ONE (17:17)
[2017-07-16] MEDS ORDERED: HALDOL IM ONE (17:17)
[2017-07-16 17:18] VITALS: BP 175/108
[2017-07-16] MEDS ORDERED: FLAGYL 500 MG/100 ML 500 MG/100 ML BAG IV ONE (17:39)
[2017-07-16] MEDS ORDERED: ROCEPHIN/NS 1 GM/50 ML 1 GM/50 ML BAG IV ONE (17:39)
[2017-07-16] MEDS ORDERED: NACL ONE (18:05)
[2017-07-16] MEDS ORDERED: ROCEPHIN 1,000 MG in NACL 0.9% 50 ML IM ONE (18:36)
[2017-07-16] MEDS ORDERED: ROCEPHIN IM ONE (19:00)
--- NOTE | 2017-07-16 20:02 | Emergency Department Report ---
ED Abdominal Pain HPI - General Chief Complaint: Abdominal Pain Stated Complaint: ABD PAIN Time Seen by Provider: 07/16/17 17:16 Source: patient Mode of arrival: Ambulatory Limitations: No Limitations - History of Present Illness MD Complaint: abdominal pain (reports feels similar to her normal episodes of gastroparesis. Reports that she feels better after receiving dilaudid. ) -: days(s) Location: diffuse Radiation: none Migration to: no migration, periumbilical Severity: moderate Severity scale (0 -10): 4 Quality: aching Consistency: intermittent Improves With: nothing Worsens With: nothing Associated Symptoms: nausea, vomiting. denies: diarrhea, fever, chills, constipation, dysuria, hematemesis, hematochezia, melena, hematuria, syncope - Related Data Home Medications Medication Instructions Recorded Confirmed Last Taken Insulin Glargine [Lantus VIAL] 20 unit SUB-Q QHS 01/18/17 02/10/17 01/17/17 Insulin Aspart Prot/Aspart(Nf) 0 units SQ AC 02/10/17 02/10/17 Unknown [NovoLOG Mix 70/30 VIAL] Previous Rx's Medication Instructions Recorded Last Taken Type Amoxicillin/K Clav Tab [Augmentin 1 each PO Q12HR #10 tablet 02/12/17 Unknown Rx 500 MG TAB] Ondansetron [Zofran Odt] 4 mg PO Q8H PRN #30 tab.rapdis 02/12/17 Unknown Rx Potassium Chloride [K-Dur] 20 meq PO QDAY #10 tablet 02/12/17 Unknown Rx oxyCODONE /ACETAMINOPHEN [Percocet 1 tab PO Q6H PRN #30 tablet 02/12/17 Unknown Rx 5/325 mg] Sulfamethoxazole/Trimethoprim 1 each PO BID #14 tablet 07/16/17 Unknown Rx [Bactrim DS TAB] Allergies Allergy/AdvReac Type Severity Reaction Status Date / Time ketorolac tromethamine Allergy Shortness Verified 04/20/17 07:48 [From Toradol] of Breath morphine Allergy Itching Verified 04/20/17 07:48 dicyclomine HCl [From Bentyl] AdvReac Hives Verified 04/20/17 07:48 ED Review of Systems ROS: Stated complaint: ABD PAIN Other details as noted in HPI Constitutional: denies: chills, diaphoresis, fever, malaise ENT: denies: throat pain Respiratory: denies: cough, orthopnea, shortness of breath, SOB with exertion, SOB at rest Cardiovascular: denies: chest pain, palpitations, dyspnea on exertion, orthopnea , edema, syncope Gastrointestinal: abdominal pain, nausea, vomiting. denies: diarrhea, constipation, hematemesis, melena, hematochezia Musculoskeletal: denies: back pain, myalgia Skin: denies: rash, lesions, change in color Neurological: denies: headache, weakness, numbness, paresthesias, confusion, abnormal gait ED Past Medical Hx - Past Medical History Previous Medical History?: Yes Hx Hypertension: Yes Hx Heart Attack/AMI: No Hx Congestive Heart Failure: No Hx Diabetes: Yes Hx Deep Vein Thrombosis: No Hx Asthma: Yes Hx COPD: No Hx HIV: No Additional medical history: gastroparesis (no official dx) - Surgical History Past Surgical History?: Yes Hx Coronary Stent: No Hx Cholecystectomy: Yes Hx Appendectomy: Yes Additional Surgical History: tubal ligation. x 2 - Social History Smoking Status: Never Smoker Substance Use Type: None - Medications Home Medications: Home Medications Medication Instructions Recorded Confirmed Last Taken Type Insulin Glargine [Lantus VIAL] 20 unit SUB-Q QHS 01/18/17 02/10/17 01/17/17 History Insulin Aspart Prot/Aspart(Nf) 0 units SQ AC 02/10/17 02/10/17 Unknown History [NovoLOG Mix 70/30 VIAL] Amoxicillin/K Clav Tab [Augmentin 1 each PO Q12HR #10 tablet 02/12/17 Unknown Rx 500 MG TAB] Ondansetron [Zofran Odt] 4 mg PO Q8H PRN #30 tab.rapdis 02/12/17 Unknown Rx Potassium Chloride [K-Dur] 20 meq PO QDAY #10 tablet 02/12/17 Unknown Rx oxyCODONE /ACETAMINOPHEN [Percocet 1 tab PO Q6H PRN #30 tablet 02/12/17 Unknown Rx 5/325 mg] Sulfamethoxazole/Trimethoprim 1 each PO BID #14 tablet 07/16/17 Unknown Rx [Bactrim DS TAB] ED Physical Exam - General Limitations: No Limitations General appearance: alert - Head Head exam: Present: atraumatic, normocephalic - Eye Eye exam: Present: PERRL, EOMI - ENT ENT exam: Present: normal orophraynx - Respiratory Respiratory exam: Present: normal lung sounds bilaterally. Absent: respiratory distress, wheezes, rales, rhonchi - Cardiovascular Cardiovascular Exam: Present: regular rate, normal rhythm, normal heart sounds - GI/Abdominal GI/Abdominal exam: Present: soft. Absent: distended, tenderness, guarding, rebound - Extremities Exam Extremities exam: Present: normal inspection, full ROM - Back Exam Back exam: Present: normal inspection, full ROM - Neurological Exam Neurological exam: Present: alert, oriented X3, CN II-XII intact, normal gait, other (normal motor and sensory). Absent: motor sensory deficit - Skin Skin exam: Present: warm, dry ED Course Vital Signs 07/16/17 07/16/17 07/16/17 05:59 06:14 17:17 Temperature 99.8 F H 98.4 F Pulse Rate 104 H 104 H 112 H Respiratory 20 20 18 Rate Blood Pressure 148/95 Blood Pressure 148/95 175/108 [Right] O2 Sat by Pulse 99 99 99 Oximetry ED Medical Decision Making - Lab Data Result diagrams: 07/16/17 07:50 07/16/17 07:50 - Radiology Data Radiology results: report reviewed - Medical Decision Making Plan f/u on CT abd/pelvis and trop. If normal plan patient discharge with GI f/ u. Patient signed out to Dr. Murguia for further evaluation. At the time of last evaluation patient was stable, with normal vital signs. Patient with history of gastroparesis and multiple allergies to pain medication. Patient presenting requesting dilaudid and IV benadryl by name. Concern for pain seeking behavior. Patient writhing around in pain on presentation and after haldol resting comfortably in no acute distress. Patient reports that haldol didnt work for her and dilaudid worked better. Critical care attestation.: If time is entered above; I have spent that time in minutes in the direct care of this critically ill patient, excluding procedure time. ED Disposition Clinical Impression: Abdominal pain Qualifiers: Abdominal location: unspecified location Qualified Code(s): R10.9 - Unspecified abdominal pain UTI (urinary tract infection) Qualifiers: Urinary tract infection type: site unspecified Hematuria presence: without hematuria Qualified Code(s): N39.0 - Urinary tract infection, site not specified Disposition: -01 TO HOME OR SELFCARE Is pt being admited?: No Condition: Stable Instructions: Abdominal Pain (ED), Urinary Tract Infection in Women (ED) Prescriptions: Sulfamethoxazole/Trimethoprim [Bactrim DS TAB] 1 each PO BID #14 tablet Referrals: [facility] [Provider Group] - 2-3 Days PRIMARY CARE, [Primary Care Provider] - 2-3 Days
--- NOTE | 2017-07-16 20:27 | Cat Scan Report ---
FINAL REPORT PROCEDURE: CT ABDOMEN PELVIS WO CON TECHNIQUE: Computerized axial tomography of the abdomen and pelvis was performed without intravenous contrast. This study is performed without intravascular contrast material and its sensitivity for abdominal and pelvic pathology, including neoplasms, inflammation, abscess, free fluid, thrombosis, arterial dissection and infarction, is reduced compared with a contrast enhanced study. HISTORY: Pain COMPARISON: 02/10/2017 FINDINGS: Visualized lower thorax: No significant abnormality. Liver: Mild diffuse low attenuation suggests fatty infiltration of the liver. Spleen: Normal size and attenuation. Gallbladder and biliary system: There has been cholecystectomy. Pancreas: Normal. Adrenals: Normal. Kidneys: There is mild bilateral hydroureteronephrosis. There is a nonobstructive 2 millimeter calculus in the right kidney midpole. No ureteral calculi are seen. Cannot exclude some degree of obstruction at the level of the urinary bladder. There is diffuse urinary bladder wall thickening. GI tract: No bowel obstruction or inflammation is seen. Lymph nodes and mesentery: Normal. Vasculature: There are borderline sized retroperitoneal nodes which measure up to 1 centimeter short axis. Bladder: Circumferential wall thickening. Reproductive organs: Grossly unremarkable. Peritoneum: No free fluid. Musculoskeletal structures: No significant abnormality. Other: None. IMPRESSION: There is diffuse urinary bladder wall thickening. There is mild bilateral hydroureteronephrosis. Cannot exclude some degree of obstruction. No ureteral calculi are seen. There is a nonobstructive 2 millimeter right renal calculus. Correlation with post IV contrast images with delayed images could be obtained to evaluate renal excretion. No evidence of bowel obstruction or acute inflammation. Borderline sized retroperitoneal lymph nodes.
[2017-07-16] MEDS ORDERED: ROCEPHIN ONE (21:09)
[2017-07-16] MEDS ORDERED: XYLOCAINE 1% MPF 5 mL ONE (21:09)
--- NOTE | 2017-07-18 22:58 | Emergency Department Report ---
Blank Doc - Documentation Documentation: Patient's blood cultures reportedly grow gram-negative rods in 1 of 2 bottles. I tempted to contact the patient at [phone] to inform the patient of these findings and recommended she return to the hospital for admission/treatment however the person answering the phone states they have no relationship to this patient and that he has received multiple calls from people looking for her for the past year. I then attempted to contact the other telephone number listed in the patient's demographics which included her sister at [phone]. There was no answer but I left a voicemail explaining that I was looking to follow-up with Ms. Sherry Estrada about her recent visit. I left a message including telephone number to the ED and recommended the patient or family call back for further information. Charge nurse Rebecca notified and advised to have paperwork mailed to the patient
== END 2017-07-16 21:11 | disposition home or self-care (01) ==
LOC: ED 05:56
DX: N39.0 Urinary tract infection, site not specified (principal); I10 Essential (primary) hypertension; E11.9 Type 2 diabetes mellitus without complications; J45.909 Unspecified asthma, uncomplicated; Z79.4 Long term (current) use of insulin; Z88.6 Allergy status to analgesic agent; Z88.8 Allergy status to other drugs, medicaments and biological substances
CPT/HCPCS: 36415; 74176; 80053; 81001; 82140; 83690; 84484; 84703; 85025; 87040; 96372; 99284; J0696; J1630

== ENCOUNTER 2017-10-30 08:52 | Emergency (ER) | payer OTHER ==
[2017-10-30 09:01] VITALS: BP 149/83
[2017-10-30 09:59] LABS: Bacteria,Urine 1+ /HPF (Negative); Bilirubin,Urine NEG (Negative); Blood,Urine NEG (Negative); Ketones,Urine NEG (Negative); Leukocyte Esterase,Urine TR (Negative); Mucus,Urine FEW /HPF; Nitrite,Urine NEG (Negative); Urobilinogen,Urine < 2.0 mg/dL (<2.0)
[2017-10-30 10:41] LABS: Basophils % (Auto) 1.2 % (0.0-1.8); Eosinophils % (Auto) 1.3 % (0.0-4.3); Hematocrit 29.5 % (30.3-42.9); Hemoglobin 9.6 gm/dl (10.1-14.3); Mean Corpuscular HGB Conc 33 % (30-34); Mean Corpuscular Volume 77 fl (79-97); Platelet Count 306 K/mm3 (140-440); Red Blood Count 3.84 M/mm3 (3.65-5.03); White Blood Count 5.6 K/mm3 (4.5-11.0)
[2017-10-30 10:51] LABS: Alanine Aminotransferase 12 units/L (7-56); Albumin 4.1 g/dL (3.9-5); Albumin/Globulin Ratio 1.1 %; Alkaline Phosphatase 73 units/L (35-129); Anion Gap 16 mmol/L; BUN/Creatinine Ratio 18; Blood Urea Nitrogen 14 mg/dL (7-17); Calcium 9.5 mg/dL (8.4-10.2); Carbon Dioxide 31 mmol/L (22-30); Chloride 94.2 mmol/L (98-107); Glucose 110 mg/dL (65-100); Lipase 58 units/L (13-60); Potassium 3.1 mmol/L (3.6-5.0); Sodium 138 mmol/L (137-145); Total Protein 7.7 g/dL (6.3-8.2)
[2017-10-30 10:59] LABS: Mean Corpuscular Hemoglobin 25 pg (28-32)
== END 2017-10-30 16:56 | disposition left against medical advice (07) ==
LOC: ED 08:52
DX: R10.9 Unspecified abdominal pain (principal); Z53.21 Procedure and treatment not carried out due to patient leaving prior to being seen by health care provider
CPT/HCPCS: 36415; 80053; 81001; 83690; 84703; 85025

== ENCOUNTER 2017-11-03 21:00 | Emergency (ER) | payer OTHER, MEDICAID ==
[2017-11-03] MEDS ORDERED: TYLENOL ONE (22:22)
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
[2017-11-04] MEDS ORDERED: TYLENOL PO ONE (16:42)
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
[2017-11-04 18:55] LABS: Amphetamine Screen,Urine PRESUMPTIVE NEGATIVE; Benzodiazepines Screen,Urine PRESUMPTIVE NEGATIVE; Cannabinoid Screen,Urine PRESUMPTIVE NEGATIVE; Cocaine Screen,Urine PRESUMPTIVE NEGATIVE; Methadone Screen,Urine PRESUMPTIVE NEGATIVE; Opiate Screen,Urine PRESUMPTIVE NEGATIVE
[2017-11-04 19:04] LABS: Bacteria,Urine 1+ /HPF (Negative); Bilirubin,Urine NEG (Negative); Blood,Urine MOD (Negative); Color,Urine Yellow (Yellow); Mucus,Urine FEW /HPF; Nitrite,Urine NEG (Negative); Urobilinogen,Urine < 2.0 mg/dL (<2.0)
[2017-11-04 19:08] LABS: Protein,Urine >500 mg/dL (Negative); WBC,Urine > 182.0 /HPF (0.0-6.0)
[2017-11-04] MEDS ORDERED: XYLOCAINE 1% MPF 5 mL INFILTRATI ONE (22:41)
[2017-11-04] MEDS ORDERED: ROCEPHIN IM ONE (22:41)
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
[2017-11-05 00:38] VITALS: BP 149/88
== END 2017-11-05 00:59 | disposition home or self-care (01) ==
LOC: EEVIPCON 21:00 → ED 21:00
DX: N39.0 Urinary tract infection, site not specified (principal); S20.212A Contusion of left front wall of thorax, initial encounter; I10 Essential (primary) hypertension; E11.9 Type 2 diabetes mellitus without complications; Z79.4 Long term (current) use of insulin; Z88.6 Allergy status to analgesic agent; Z88.8 Allergy status to other drugs, medicaments and biological substances; V89.2XXA Person injured in unspecified motor-vehicle accident, traffic, initial encounter; Y93.89 Activity, other specified; Y92.89 Other specified places as the place of occurrence of the external cause; Y99.8 Other external cause status
CPT/HCPCS: 80307; 81001; 96372; 99284; J0696; 71111

== ENCOUNTER 2018-02-21 03:48 | Inpatient (IN) | payer MEDICAID, MEDICARE ==
--- NOTE | 2018-02-21 10:26 | Emergency Department Report ---
ED Abdominal Pain HPI - General Chief Complaint: Abdominal Pain Stated Complaint: ABD PAIN X2 DAY Time Seen by Provider: 02/21/18 10:05 Source: patient, family Mode of arrival: Ambulatory Limitations: No Limitations - History of Present Illness Initial Comments: Patient is a 37-year-old female that presents to emergency with abdominal pain patient states the abdominal pain is generalized. Patient denies fever or chills. Patient complains of urinary frequency. Patient states that the abdominal pain going on for 2 days. Patient also complains of nausea vomiting diarrhea 2 days. MD Complaint: abdominal pain -: Sudden Location: diffuse Radiation: none Migration to: no migration Severity scale (0 -10): 10 Quality: stabbing, aching Consistency: constant Improves With: rest Worsens With: movement Associated Symptoms: nausea, vomiting, diarrhea. denies: fever, chills, constipation, dysuria, hematemesis, hematochezia, melena, hematuria, anorexia, syncope - Related Data LMP (females 10-50): unknown Home Medications Medication Instructions Recorded Confirmed Last Taken Insulin Glargine [Lantus VIAL] 20 unit SUB-Q QHS 01/18/17 02/21/18 02/20/18 Insulin Aspart Prot/Aspart(Nf) 15 units SQ AC 02/10/17 02/21/18 02/20/18 [NovoLOG Mix 70/30 VIAL] Allergies Allergy/AdvReac Type Severity Reaction Status Date / Time ketorolac tromethamine Allergy Shortness Verified 11/03/17 21:01 [From Toradol] of Breath morphine Allergy Itching Verified 11/03/17 21:01 dicyclomine HCl [From Bentyl] AdvReac Hives Verified 11/03/17 21:01 ED Review of Systems ROS: Stated complaint: ABD PAIN X2 DAY Other details as noted in HPI Constitutional: denies: chills, fever Eyes: denies: eye pain, eye discharge, vision change ENT: denies: ear pain, throat pain Respiratory: denies: cough, shortness of breath, wheezing Cardiovascular: denies: chest pain, palpitations Endocrine: no symptoms reported Gastrointestinal: abdominal pain, nausea, vomiting, diarrhea Genitourinary: frequency. denies: urgency, dysuria, discharge Musculoskeletal: denies: back pain, joint swelling, arthralgia Skin: denies: rash, lesions Neurological: denies: headache, weakness, paresthesias Psychiatric: denies: anxiety, depression Hematological/Lymphatic: denies: easy bleeding, easy bruising ED Past Medical Hx - Past Medical History Previous Medical History?: Yes Hx Hypertension: Yes Hx Heart Attack/AMI: No Hx Congestive Heart Failure: No Hx Diabetes: Yes Hx Deep Vein Thrombosis: No Hx Asthma: Yes Hx COPD: No Hx HIV: No Additional medical history: gastroparesis (no official dx) - Surgical History Past Surgical History?: Yes Hx Coronary Stent: No Hx Cholecystectomy: Yes Hx Appendectomy: Yes Additional Surgical History: tubal ligation. x 2 - Family History Family history: diabetes, hypertension - Social History Smoking Status: Never Smoker Substance Use Type: None - Medications Home Medications: Home Medications Medication Instructions Recorded Confirmed Last Taken Type Insulin Glargine [Lantus VIAL] 20 unit SUB-Q QHS 01/18/17 02/21/18 02/20/18 History Insulin Aspart Prot/Aspart(Nf) 15 units SQ AC 02/10/17 02/21/18 02/20/18 History [NovoLOG Mix 70/30 VIAL] ED Physical Exam - General Limitations: No Limitations General appearance: alert, in no apparent distress - Head Head exam: Present: atraumatic, normocephalic - Eye Eye exam: Present: normal appearance - ENT ENT exam: Present: mucous membranes moist - Neck Neck exam: Present: normal inspection - Respiratory Respiratory exam: Present: normal lung sounds bilaterally. Absent: respiratory distress - Cardiovascular Cardiovascular Exam: Present: regular rate, normal rhythm. Absent: systolic murmur, diastolic murmur, rubs, gallop - GI/Abdominal GI/Abdominal exam: Present: soft, tenderness (diffuse tenderness in the abdominal region), normal bowel sounds - Extremities Exam Extremities exam: Present: normal inspection - Back Exam Back exam: Present: normal inspection - Neurological Exam Neurological exam: Present: alert, oriented X3 - Psychiatric Psychiatric exam: Present: normal affect, normal mood - Skin Skin exam: Present: warm, dry, intact, normal color. Absent: rash ED Course Vital Signs 02/21/18 02/21/18 02/21/18 04:15 10:25 10:31 Temperature 98.6 F Pulse Rate 96 H Respiratory 20 Rate Blood Pressure 144/97 159/92 O2 Sat by Pulse 97 100 99 Oximetry 02/21/18 02/21/18 02/21/18 13:49 14:00 14:30 Temperature Pulse Rate Respiratory Rate Blood Pressure 210/114 166/86 136/73 O2 Sat by Pulse Oximetry 02/21/18 02/21/18 15:00 15:30 Temperature Pulse Rate Respiratory Rate Blood Pressure 130/70 124/70 O2 Sat by Pulse Oximetry - Reevaluation(s) Reevaluation #1: Plan of care discussed with patient. We will give patient a dose of antibiotics. Patient to be admitted to the hospitalist service. Hospitalist consult. Hospitalist agreed to admit. 02/21/18 13:06 0 ED Medical Decision Making - Lab Data Result diagrams: 02/21/18 10:30 02/21/18 10:30 - Radiology Data Radiology results: report reviewed Etiology for report reviewed and discussed with patient. - Medical Decision Making She is 37-year-old female who presents to emergency room with abdominal pain patient found to have a pyelonephritis and UTI and elevated white count. The patient further evaluation and treatment to the hospitalist service - Differential Diagnosis UTI. Abdominal pain. Gastroenteritis. Gastritis. Critical Care Time: Yes Critical care attestation.: If time is entered above; I have spent that time in minutes in the direct care of this critically ill patient, excluding procedure time. Critical Care Time: 2 minutes spent for critical care time ED Disposition Clinical Impression: Abdominal pain, Nausea and vomiting, Dehydration, Pyelonephritis Disposition: OP ADMIT IP TO THIS HOSP Is pt being admited?: Yes Does the pt Need Aspirin: No Condition: Critical Time of Disposition: 13:08
[2018-02-21] MEDS ORDERED: NACL 0.9% 1000 ML 1,000 ML IV ONE ×2 (10:33→13:10)
[2018-02-21 10:50] LABS: Basophils # (Auto) 0.2 K/mm3 (0.0-0.1); Basophils % (Auto) 1.6 % (0.0-1.8); Eosinophils % (Auto) 0.2 % (0.0-4.3); Hematocrit 32.6 % (30.3-42.9); Hemoglobin 10.7 gm/dl (10.1-14.3); Lymphocytes # (Auto) 1.8 K/mm3 (1.2-5.4); Mean Corpuscular HGB Conc 33 % (30-34); Mean Corpuscular Volume 73 fl (79-97); Monocytes # (Auto) 0.5 K/mm3 (0.0-0.8); Monocytes % (Auto) 4.7 % (0.0-7.3); Platelet Count 614 K/mm3 (140-440); Red Blood Count 4.48 M/mm3 (3.65-5.03); Red Cell Distribution Width 18.4 % (13.2-15.2)
[2018-02-21 10:54] LABS: Mean Corpuscular Hemoglobin 24 pg (28-32)
[2018-02-21] MEDS ORDERED: ZOFRAN ONE (11:00)
[2018-02-21] MEDS ORDERED: ZOFRAN IV ONE (11:07)
[2018-02-21 11:15] LABS: Alanine Aminotransferase 16 units/L (7-56); Albumin 3.9 g/dL (3.9-5); BUN/Creatinine Ratio 23; Blood Urea Nitrogen 21 mg/dL (7-17); Calcium 9.9 mg/dL (8.4-10.2); Hemolysis Index 6
[2018-02-21] MEDS ORDERED: TYLENOL PO ONE (11:20)
[2018-02-21] MEDS ORDERED: TYLENOL ONE (11:25)
[2018-02-21 11:45] LABS: Bacteria,Urine 2+ /HPF (Negative); Bilirubin,Urine NEG (Negative); Blood,Urine SM (Negative); Color,Urine Yellow (Yellow); Hyaline Casts,Urine 4 /LPF; Mucus,Urine FEW /HPF; Protein,Urine >500 mg/dL (Negative); Urobilinogen,Urine < 2.0 mg/dL (<2.0)
[2018-02-21] MEDS ORDERED: DILAUDID ONE (11:45)
[2018-02-21] MEDS: DILAUDID IV ONE ×2 (11:48→13:42)
--- NOTE | 2018-02-21 12:43 | Cat Scan Report ---
CT ABDOMEN AND PELVIS WITHOUT AND WITH CONTRAST INDICATION: Abdominal pain. COMPARISON: 09/08/2017. FINDINGS: Abdomen and pelvis CT performed before and after intravenous administration of 100 cc of Omnipaque 300. LUNG BASES: Slight cardiomegaly. Nonspecific distal esophageal wall prominence/thickening, not excluded for gastroesophageal reflux and/or hiatal hernia, amongst others. ABDOMEN: Stable cholecystectomy clips. A 2-3 mm right renal calculus may again be present as on axial image 71, series 2. Postcontrast images demonstrate stable liver, spleen, pancreas, adrenals, aorta, IVC and non-hydronephrotic kidneys. Subtle 1.6 cm right upper to mid renal cortex posteriorly remains slightly hypodense as on delayed series 6, axial images 34-35, nonspecific, though not excluded for subtle pyelonephritis in an appropriate setting. No significant perinephric stranding however. Few small, subcentimeter retroperitoneal and mesenteric lymph nodes. Nonopacified GI tract evaluation limited, though grossly nonobstructive. Probable appendectomy changes. PELVIS: Uterus, adnexa/ovaries and rectosigmoid grossly within normal limits. Few pelvic phleboliths. No free fluid or significant adenopathy. Diffuse urinary bladder exaggerated wall thickness upto approximately 0.6 cm as on axial image 28, series 7 again noted, though suboptimally distended. No focal aggressive osseous lesions. Slight subcutaneous edema, more so along the lower back. CONCLUSION: 1. Subtle right pyelonephritis not excluded, as described. Please also correlate clinically and with laboratory values. 2. Diffuse urinary bladder wall prominence/thickening may again represent chronic cystitis/hypertrophy, also described on multiple prior CT reports. 3. Various other findings, as above. Thank you for the opportunity to participate in this patient's care.
--- NOTE | 2018-02-21 13:33 | History and Physical Report ---
History of Present Illness Chief complaint: My stomach hurts History of present illness: 37 YO Female with Asthma, HTN, DM, Gastroparesis presents to ED for evaluation. Pt states that she has experienced abdominal pain, as well and multiple episodes of nausea and vomiting for the past 2 days with worsening symptoms over the same time frame. Abdominal pain is 9/10, diffuse, nonradiating, worse with movement, improves with rest, constant, aching. Patient denies fever or chills, CP, Palpitations, diarrhea, BRBPR, hemoptysis, hematuria, or recent ill contacts. Patient complains of urinary frequency. Patient seen and evaluated in ED and found to have UTI complicated by Pyelonephritis. Pt admitted to medical floor. Past History Past Medical History: diabetes, other (asthma, gastroparesis) Past Surgical History: appendectomy, cholecystectomy, , Other (Tubal ligation) Social history: single Family history: no significant family history (reviewed) Medications and Allergies Allergies Allergy/AdvReac Type Severity Reaction Status Date / Time ketorolac tromethamine Allergy Shortness Verified 11/03/17 21:01 [From Toradol] of Breath morphine Allergy Itching Verified 11/03/17 21:01 dicyclomine HCl [From Bentyl] AdvReac Hives Verified 11/03/17 21:01 Home Medications Medication Instructions Recorded Confirmed Last Taken Type Insulin Glargine [Lantus VIAL] 20 unit SUB-Q QHS 01/18/17 02/21/18 02/20/18 History Insulin Aspart Prot/Aspart(Nf) 15 units SQ AC 02/10/17 02/21/18 02/20/18 History [NovoLOG Mix 70/30 VIAL] Active Meds: Active Medications Piperacillin Sod/Tazobactam Sod (Zosyn/Ns 3.375gm/50ml) 3.375 gm in 50 mls @ 100 mls/hr IV ONCE ONE Stop: 02/21/18 14:14 Sodium Chloride (Nacl 0.9% 1000 Ml) 1,000 mls @ 999 mls/hr IV BOLUS ONE Stop: 02/21/18 14:10 Review of Systems Constitutional: no weight loss, no weight gain, no fever, no chills Ears, nose, mouth and throat: no ear pain, no ear discharge, no tinnitis, no decreased hearing, no nose pain, no nasal congestion Breasts: no change in shape, no swelling, no mass Cardiovascular: no chest pain, no orthopnea, no palpitations, no rapid/ irregular heart beat, no edema Gastrointestinal: abdominal pain, nausea, vomiting, no diarrhea, no coffee ground emesis, no BRBPR, no melena Genitourinary Female: no pelvic pain, no flank pain, no menorrhagia, no dysuria , no urinary frequency, no urgency Rectal: no pain, no incontinence, no bleeding Musculoskeletal: no neck stiffness, no neck pain, no shooting arm pain, no low back pain, no shooting leg pain, no leg numbness/tingling Integumentary: no rash, no pruritis, no redness, no sores, no wounds Neurological: no paralysis, no weakness, no parathesias, no numbness, no tingling, no seizures, no syncope Psychiatric: no memory loss, no change in sleep habits, no sleep disturbances, no insomnia, no hypersomnia, no change in appetite, no change in libido Endocrine: no cold intolerance, no heat intolerance, no polyphagia, no excessive thirst, no polydipsia, no polyuria, no nocturia, no excessive sweating Hematologic/Lymphatic: no easy bruising, no easy bleeding, no lymphadenopathy, no lymphedema Allergic/Immunologic: no urticaria, no allergic rhinitis, no wheezing, no anaphylaxis, no angioedema Exam - Constitutional Vitals: Temp Pulse Resp BP Pulse Ox 98.6 F 96 H 20 159/92 99 02/21/18 04:15 02/21/18 04:15 02/21/18 04:15 02/21/18 10:31 02/21/18 10:31 General appearance: Present: mild distress - EENT Eyes: Present: PERRL ENT: hearing intact, clear oral mucosa - Neck Neck: Present: supple, normal ROM - Respiratory Respiratory effort: normal Respiratory: bilateral: CTA - Cardiovascular Heart Sounds: Present: S1 & S2. Absent: rub, click - Extremities Extremities: pulses symmetrical, No edema Peripheral Pulses: within normal limits - Abdominal General gastrointestinal: Present: soft, non-tender, non-distended, normal bowel sounds Female genitourinary: Present: normal - Integumentary Integumentary: Present: clear, warm, dry - Musculoskeletal Musculoskeletal: gait normal, strength equal bilaterally - Psychiatric Psychiatric: appropriate mood/affect, intact judgment & insight - Neurologic Neurologic: CNII-XII intact, moves all extremities Results - Labs CBC & Chem 7: 02/21/18 10:30 02/21/18 10:30 Labs: Abnormal lab results 02/21/18 02/21/18 02/21/18 Range/Units 10:30 10:30 10:39 MCV 73 L (79-97) fl MCH 24 L (28-32) pg RDW 18.4 H (13.2-15.2) % Plt Count 614 H (140-440) K/mm3 Baso # 0.2 H (0.0-0.1) K/mm3 Seg Neutrophils % 75.5 H (40.0-70.0) % Sodium 124 L (137-145) mmol/L Potassium 3.4 L (3.6-5.0) mmol/L Chloride 81.0 L (98-107) mmol/L BUN 21 H (7-17) mg/dL Glucose 406 H (65-100) mg/dL POC Glucose (70-105) Alkaline Phosphatase 159 H (35-129) units/L Total Protein 9.2 H (6.3-8.2) g/dL Urine WBC (Auto) 37.0 H (0.0-6.0) /HPF 02/21/18 Range/Units 13:02 MCV (79-97) fl MCH (28-32) pg RDW (13.2-15.2) % Plt Count (140-440) K/mm3 Baso # (0.0-0.1) K/mm3 Seg Neutrophils % (40.0-70.0) % Sodium (137-145) mmol/L Potassium (3.6-5.0) mmol/L Chloride (98-107) mmol/L BUN (7-17) mg/dL Glucose (65-100) mg/dL POC Glucose 320 H (70-105) Alkaline Phosphatase (35-129) units/L Total Protein (6.3-8.2) g/dL Urine WBC (Auto) (0.0-6.0) /HPF Assessment and Plan - Patient Problems (1) Pyelonephritis Current Visit: Yes Status: Acute Plan to address problem: IV antibiotics, Urinalysis, pain control, monitor uop q shift, (2) Acute hyponatremia Current Visit: No Status: Acute Plan to address problem: IVF resuscitation therapy, recheck bmp (3) Urinary tract infection Current Visit: No Status: Acute Qualifiers: Urinary tract infection type: acute pyelonephritis Qualified Code(s): N10 - Acute pyelonephritis Plan to address problem: IV antibiotic therapy, urinalysis/culture, pain control, (4) DVT prophylaxis Current Visit: Yes Status: Acute Plan to address problem: scd to ble while in bed
[2018-02-21] MEDS ORDERED: PROVENTIL IH PRN (13:44)
[2018-02-21] MEDS ORDERED: ZOFRAN IV PRN (13:44)
[2018-02-21] MEDS ORDERED: SODIUM CHLORIDE FLUSH SYRINGE 10 ML IV PRN (13:44)
[2018-02-21] MEDS ORDERED: TYLENOL PO PRN (13:44)
[2018-02-21] MEDS ORDERED: ZOSYN/NS 3.375GM/50ML 3.375 GM/50 ML BAG IV ONE (13:45)
[2018-02-21] MEDS ORDERED: INSULIN ASPART PROT SQ SCH (16:30)
[2018-02-21] MEDS ORDERED: ASPART SQ SCH (16:30)
[2018-02-21] MEDS: DILAUDID IV PRN ×2 (17:31→21:38)
[2018-02-21] MEDS ORDERED: D50W (25GM) Syringe IV PRN (21:05)
[2018-02-21] MEDS: SODIUM CHLORIDE FLUSH SYRINGE 10 ML IV SCH (21:39)
[2018-02-21] MEDS: LANTUS SUB-Q SCH (22:44)
[2018-02-22] MEDS: HumaLOG SUB-Q SCH ×4 (00:46→18:45)
[2018-02-22] MEDS: NACL 0.9% 1000 ML 1,000 ML IV SCH ×2 (02:03→22:09)
[2018-02-22] MEDS: DILAUDID IV PRN ×7 (03:42→22:10)
[2018-02-22] MEDS ORDERED: PERCOCET 5/325 PO PRN (04:09)
[2018-02-22] MEDS: SODIUM CHLORIDE FLUSH SYRINGE 10 ML IV SCH ×2 (11:01→22:36)
--- NOTE | 2018-02-22 14:52 | Progress Note ---
Assessment and Plan - Patient Problems (1) Dehydration Current Visit: Yes Status: Acute Plan to address problem: At present continue IV volume hydration. Resolving. No clear evidence of nephritis no acute flank pain. (2) Nausea and vomiting Current Visit: Yes Status: Resolved (3) Pyelonephritis Current Visit: Yes Status: Acute Plan to address problem: As it was taking Zosyn initially. Patient only has 37 white cells in urine and +2 bacteria does not appear to be that significant no hematuria majority of patients 0 symptoms are consistent with uncontrolled diabetes as well. We'll increase Dilaudid to 0.25-0.50 without advanced from there. This should control patient's pain suspect alternative means of obtaining pain medications. We'll change to Levaquin once daily. History Interval history: Patient standing up at bedside rubbing back again it's the wall. Stating that her back hurts. What is this. Patient was diagnosed with pyelonephritis. Patient also refusing Percocet and wants increased Dilaudid. Patient does not appear to be in that significant amount of pain. Complaints of pain but not consistent with the physical aspect that she is displaying Hospitalist Physical - Constitutional Vitals: Temp Pulse Resp BP Pulse Ox 97.7 F 79 20 137/76 99 02/22/18 07:46 02/22/18 07:46 02/22/18 07:46 02/22/18 07:46 02/22/18 07:46 General appearance: Present: mild distress, severe distress - EENT Eyes: Present: PERRL, EOM intact, scleral icterus ENT: hearing intact, clear oral mucosa, dentition normal - Neck Neck: Present: supple, normal ROM. Absent: enlarged thyroid, masses or JVD, carotid bruits - Respiratory Respiratory effort: normal Respiratory: bilateral: CTA - Cardiovascular Rhythm: regular Heart Sounds: Present: S1 & S2, gallop - Extremities Extremities: no ischemia, pulses intact, pulses symmetrical, No edema, normal temperature, normal color - Abdominal General gastrointestinal: soft, non-tender, non-distended, normal bowel sounds, hypoactive bowel sounds, no hepatomegaly, no splenomegaly, no hernia - Integumentary Integumentary: Present: clear, warm, dry - Psychiatric Psychiatric: appropriate mood/affect, cooperative, agitated - Neurologic Neurologic: CNII-XII intact, focal deficits Results - Labs CBC & Chem 7: 02/21/18 10:30 02/21/18 10:30 Labs: Laboratory Last Values WBC 10.2 K/mm3 (4.5-11.0) 02/21/18 10:30 RBC 4.48 M/mm3 (3.65-5.03) 02/21/18 10:30 Hgb 10.7 gm/dl (10.1-14.3) 02/21/18 10:30 Hct 32.6 % (30.3-42.9) 02/21/18 10:30 MCV 73 fl (79-97) L 02/21/18 10:30 MCH 24 pg (28-32) L 02/21/18 10:30 MCHC 33 % (30-34) 02/21/18 10:30 RDW 18.4 % (13.2-15.2) H 02/21/18 10:30 Plt Count 614 K/mm3 (140-440) H 02/21/18 10:30 Lymph % (Auto) 18.0 % (13.4-35.0) 02/21/18 10:30 Story % (Auto) 4.7 % (0.0-7.3) 02/21/18 10:30 Eos % (Auto) 0.2 % (0.0-4.3) 02/21/18 10:30 Baso % (Auto) 1.6 % (0.0-1.8) 02/21/18 10:30 Lymph # 1.8 K/mm3 (1.2-5.4) 02/21/18 10:30 Story # 0.5 K/mm3 (0.0-0.8) 02/21/18 10:30 Eos # 0.0 K/mm3 (0.0-0.4) 02/21/18 10:30 Baso # 0.2 K/mm3 (0.0-0.1) H 02/21/18 10:30 Seg Neutrophils % 75.5 % (40.0-70.0) H 02/21/18 10:30 Seg Neutrophils # 7.7 K/mm3 (1.8-7.7) 02/21/18 10:30 Sodium 124 mmol/L (137-145) L 02/21/18 10:30 Potassium 3.4 mmol/L (3.6-5.0) L 02/21/18 10:30 Chloride 81.0 mmol/L (98-107) L 02/21/18 10:30 Carbon Dioxide 26 mmol/L (22-30) 02/21/18 10:30 Anion Gap 20 mmol/L 02/21/18 10:30 BUN 21 mg/dL (7-17) H 02/21/18 10:30 Creatinine 0.9 mg/dL (0.7-1.2) 02/21/18 10:30 Estimated GFR > 60 ml/min 02/21/18 10:30 BUN/Creatinine Ratio 23 % 02/21/18 10:30 Glucose 406 mg/dL (65-100) H 02/21/18 10:30 POC Glucose 214 (70-105) H 02/22/18 11:49 Lactic Acid 1.80 mmol/L (0.7-2.0) 02/21/18 10:35 Calcium 9.9 mg/dL (8.4-10.2) 02/21/18 10:30 Total Bilirubin 0.60 mg/dL (0.1-1.2) 02/21/18 10:30 AST 18 units/L (5-40) 02/21/18 10:30 ALT 16 units/L (7-56) 02/21/18 10:30 Alkaline Phosphatase 159 units/L (35-129) H 02/21/18 10:30 Total Protein 9.2 g/dL (6.3-8.2) H 02/21/18 10:30 Albumin 3.9 g/dL (3.9-5) 02/21/18 10:30 Albumin/Globulin Ratio 0.7 % 02/21/18 10:30 Urine Color Yellow (Yellow) 02/21/18 10:39 Urine Turbidity Clear (Clear) 02/21/18 10:39 Urine pH 5.0 (5.0-7.0) 02/21/18 10:39 Ur Specific [place] 1.015 (1.003-1.030) 02/21/18 10:39 Urine Protein >500 mg/dL (Negative) 02/21/18 10:39 Urine Glucose (UA) >=500 mg/dL (Negative) 02/21/18 10:39 Urine Ketones Tr mg/dL (Negative) 02/21/18 10:39 Urine Blood Sm (Negative) 02/21/18 10:39 Urine Nitrite Pos (Negative) 02/21/18 10:39 Urine Bilirubin Neg (Negative) 02/21/18 10:39 Urine Urobilinogen < 2.0 mg/dL (<2.0) 02/21/18 10:39 Ur Leukocyte Esterase Lg (Negative) 02/21/18 10:39 Urine WBC (Auto) 37.0 /HPF (0.0-6.0) H 02/21/18 10:39 Urine RBC (Auto) 9.0 /HPF (0.0-6.0) 02/21/18 10:39 U Epithel Cells (Auto) 6.0 /HPF (0-13.0) 02/21/18 10:39 Urine Bacteria (Auto) 2+ /HPF (Negative) 02/21/18 10:39 Hyaline Casts 4 /LPF 02/21/18 10:39 Urine Mucus Few /HPF 02/21/18 10:39 Urine Yeast (Budding) 2+ /HPF 02/21/18 10:39
[2018-02-22] MEDS ORDERED: LEVAQUIN 750MG/150ML 750 MG/150 ML BAG IV SCH (15:00)
[2018-02-22] MEDS: NORVASC PO SCH (20:49)
[2018-02-22] MEDS: LANTUS SUB-Q SCH (22:17)
[2018-02-23] MEDS: HumaLOG SUB-Q SCH ×3 (00:30→13:13)
[2018-02-23] MEDS: DILAUDID IV PRN ×4 (01:58→13:12)
[2018-02-23] MEDS: NACL 0.9% 1000 ML 1,000 ML IV SCH (06:23)
[2018-02-23] MEDS ORDERED: LEVAQUIN PO SCH (10:00)
[2018-02-23] MEDS: SODIUM CHLORIDE FLUSH SYRINGE 10 ML IV SCH (10:06)
[2018-02-23] MEDS: NORVASC PO SCH ×2 (10:07→10:08)
--- NOTE | 2018-02-23 13:00 | Discharge Summary ---
Providers - Providers Date of Admission: 02/21/18 13:44 Date of discharge: 02/23/18 Attending physician: VICTOR MANUEL REAGAN Primary care physician: ROBE VIZCAINO Hospitalization Condition: Critical Pertinent studies: CT scan which showed possible pyelonephritis. Urinary tract show UTI. Hospital course: Patient admitted for abdominal pain and flank pain treated for UTI pyelonephritis. Important to note patient stated all she could take with Dilaudid and was allergic to everything else. Patient asked for Dilaudid by name and that's all she is willing to take and 1 increase in medication. I also noticed patient twice from the doorway patient had no acute distress resting comfortably no pain and when I walked in she stood up without any difficulty and began scratching her back on the wall demanding increases and Dilaudid. Patient was not in any discomfort at any time prior to this. The Route hospital stay patient has not had any fever no hematuria no dysuria and no flank pain with palpation using stethoscope. Patient stable for discharge with antibiotics. And will benefit from some pain control. That commits patient had any discomfort at all. I did research past medical history and in fact has had similar instances every 4 months or so for same similar complaints and concerns requiring Dilaudid only. Disposition: DC-01 TO HOME OR SELFCARE - Discharge Diagnoses (1) Dehydration Status: Resolved (2) Nausea and vomiting Status: Resolved (3) Pyelonephritis Status: Acute Core Measure Documentation - Palliative Care Palliative Care/ Comfort Measures: Not Applicable - Core Measures Any of the following diagnoses?: none Exam - Constitutional Vitals: Temp Pulse Resp BP Pulse Ox 98.2 F 70 20 140/78 97 02/23/18 07:59 02/23/18 07:59 02/23/18 07:59 02/23/18 07:59 02/23/18 07:59 General appearance: Present: no acute distress, well-nourished - EENT Eyes: Present: PERRL ENT: hearing intact, clear oral mucosa - Neck Neck: Present: supple, normal ROM - Respiratory Respiratory effort: normal Respiratory: bilateral: CTA - Cardiovascular Heart Sounds: Present: S1 & S2. Absent: rub, click - Extremities Extremities: pulses symmetrical, No edema Peripheral Pulses: within normal limits - Abdominal General gastrointestinal: Present: soft, non-tender, non-distended, normal bowel sounds Female genitourinary: Present: normal - Integumentary Integumentary: Present: clear, warm, dry - Musculoskeletal Musculoskeletal: gait normal, strength equal bilaterally - Psychiatric Psychiatric: appropriate mood/affect, intact judgment & insight - Neurologic Neurologic: CNII-XII intact, moves all extremities Plan Activity: no restrictions Weight Bearing Status: Weight Bear as Tolerated Diet: regular Follow up with: ROBE VIZCAINO MD [Primary Care Provider] - 7 Days Prescriptions: Insulin Aspart Prot/Aspart(Nf) [NovoLOG Mix 70/30 VIAL] 15 units SQ AC #7 units Levofloxacin [Levaquin TAB] 750 mg PO Q24H #7 tablet oxyCODONE /ACETAMINOPHEN [Percocet 5/325 mg] 1 tab PO Q4H PRN #30 tablet PRN Reason: Pain, Moderate (4-6)
[2018-02-23 15:44] VITALS: BP 171/105
== END 2018-02-23 16:09 | disposition home or self-care (01) | DRG 690 ==
LOC: ED 03:48 → 3A 13:44
PROVIDERS: ADMIT Internal Medicine; ATTEND Internal Medicine
DX: N12 Tubulo-interstitial nephritis, not specified as acute or chronic (principal); E87.1 Hypo-osmolality and hyponatremia; I10 Essential (primary) hypertension; J45.909 Unspecified asthma, uncomplicated; E11.43 Type 2 diabetes mellitus with diabetic autonomic (poly)neuropathy; E86.0 Dehydration; K31.84 Gastroparesis; Z79.4 Long term (current) use of insulin; Z88.5 Allergy status to narcotic agent; Z88.6 Allergy status to analgesic agent; Z88.8 Allergy status to other drugs, medicaments and biological substances; Z90.49 Acquired absence of other specified parts of digestive tract; Z98.51 Tubal ligation status; Z82.49 Family history of ischemic heart disease and other diseases of the circulatory system; Z83.3 Family history of diabetes mellitus
CPT/HCPCS: 36415; 74178; 80053; 81001; 82140; 82962; 85025; 96365; 96366; 96375; J1170; J1815; J1956; J2405; J2543; J7030; Q9967

== ENCOUNTER 2018-03-23 11:42 | Emergency (ER) | payer MEDICARE ==
[2018-03-23 12:20] LABS: Basophils # (Auto) 0.1 K/mm3 (0.0-0.1); Basophils % (Auto) 1.3 % (0.0-1.8); Eosinophils # (Auto) 0.1 K/mm3 (0.0-0.4); Eosinophils % (Auto) 1.5 % (0.0-4.3); Hematocrit 35.4 % (30.3-42.9); Hemoglobin 11.7 gm/dl (10.1-14.3); Lymphocytes # (Auto) 1.5 K/mm3 (1.2-5.4); Lymphocytes % (Auto) 16.6 % (13.4-35.0); Mean Corpuscular HGB Conc 33 % (30-34); Mean Corpuscular Volume 75 fl (79-97); Monocytes # (Auto) 0.3 K/mm3 (0.0-0.8); Monocytes % (Auto) 3.6 % (0.0-7.3); Platelet Count 336 K/mm3 (140-440); Red Blood Count 4.71 M/mm3 (3.65-5.03)
[2018-03-23] MEDS ORDERED: NACL 0.9% 1000 ML 1,000 ML IV ONE ×3 (12:26→15:20)
[2018-03-23] MEDS ORDERED: REGLAN IV ONE (12:26)
--- NOTE | 2018-03-23 12:30 | Emergency Department Report ---
ED General Adult HPI - General Chief complaint: Abdominal Pain Stated complaint: ABDOMINAL PAIN Time Seen by Provider: 03/23/18 12:17 Source: patient Mode of arrival: Stretcher Limitations: No Limitations - History of Present Illness Initial comments: 37-year-old female, abd pain for 2 days no recent travel history of diabetes and asthma says history with intermittent abdominal cramps x 2 days with some nausea vomiting .today she had bloody diarrhea here for evaluation of rectal bleeding intermittent abdominal cramps nausea vomiting with history of diabetes and possible gastroparesis no fever no shortness of breath no syncope no dizziness no black stool no hematemesis -: Gradual, hour(s) Location: abdomen Severity scale (0 -10): 0 Quality: aching Consistency: intermittent Associated Symptoms: malaise. denies: confusion, chest pain, cough, diaphoresis , fever/chills, headaches, nausea/vomiting, rash, seizure, shortness of breath, syncope, weakness - Related Data Home Medications Medication Instructions Recorded Confirmed Last Taken Insulin Glargine [Lantus VIAL] 20 unit SUB-Q QHS 01/18/17 02/21/18 02/20/18 Previous Rx's Medication Instructions Recorded Last Taken Type Insulin Aspart Prot/Aspart(Nf) 15 units SQ AC #7 units 02/23/18 Unknown Rx [NovoLOG Mix 70/30 VIAL] Levofloxacin [Levaquin TAB] 750 mg PO Q24H #7 tablet 02/23/18 Unknown Rx amLODIPine [Norvasc] 10 mg PO QDAY tablet 02/23/18 Unknown Rx oxyCODONE /ACETAMINOPHEN [Percocet 1 tab PO Q4H PRN #30 tablet 02/23/18 Unknown Rx 5/325 mg] Ondansetron [Zofran Odt] 4 mg PO TID PRN #10 tab.rapdis 03/23/18 Unknown Rx Sulfamethoxazole/Trimethoprim 1 each PO BID #6 tablet 03/23/18 Unknown Rx [Bactrim DS TAB] Allergies Allergy/AdvReac Type Severity Reaction Status Date / Time ketorolac tromethamine Allergy Shortness Verified 11/03/17 21:01 [From Toradol] of Breath morphine Allergy Itching Verified 11/03/17 21:01 dicyclomine HCl [From Bentyl] AdvReac Hives Verified 11/03/17 21:01 ED Review of Systems ROS: Stated complaint: ABDOMINAL PAIN Other details as noted in HPI Comment: All other systems reviewed and negative Constitutional: malaise. denies: diaphoresis, fever Eyes: denies: eye discharge, vision change ENT: denies: dental pain, hearing loss, epistaxis Respiratory: denies: shortness of breath, SOB with exertion, SOB at rest, stridor Cardiovascular: denies: chest pain, palpitations, dyspnea on exertion, orthopnea , edema, syncope, paroxysmal nocturnal dyspnea Gastrointestinal: abdominal pain, nausea, hematochezia. denies: vomiting, diarrhea, constipation, hematemesis, melena Neurological: denies: numbness, paresthesias, confusion, abnormal gait, vertigo Psychiatric: anxiety, depression. denies: auditory hallucinations, visual hallucinations, homicidal thoughts, suicidal thoughts Hematological/Lymphatic: denies: easy bleeding, easy bruising, swollen glands ED Past Medical Hx - Past Medical History Previous Medical History?: Yes Hx Hypertension: Yes Hx Heart Attack/AMI: No Hx Congestive Heart Failure: No Hx Diabetes: Yes Hx Deep Vein Thrombosis: No Hx Asthma: Yes Hx COPD: No Hx HIV: No Additional medical history: gastroparesis (no official dx) - Surgical History Past Surgical History?: Yes Hx Coronary Stent: No Hx Cholecystectomy: Yes Hx Appendectomy: Yes Additional Surgical History: tubal ligation. x 2 - Social History Smoking Status: Never Smoker Substance Use Type: None - Medications Home Medications: Home Medications Medication Instructions Recorded Confirmed Last Taken Type Insulin Glargine [Lantus VIAL] 20 unit SUB-Q QHS 01/18/02/21/18 02/20/18 History Insulin Aspart Prot/Aspart(Nf) 15 units SQ AC #7 units 02/23/18 Unknown Rx [NovoLOG Mix 70/30 VIAL] Levofloxacin [Levaquin TAB] 750 mg PO Q24H #7 tablet 02/23/18 Unknown Rx amLODIPine [Norvasc] 10 mg PO QDAY tablet 02/23/18 Unknown Rx oxyCODONE /ACETAMINOPHEN [Percocet 1 tab PO Q4H PRN #30 tablet 02/23/18 Unknown Rx 5/325 mg] Ondansetron [Zofran Odt] 4 mg PO TID PRN #10 tab.rapdis 03/23/18 Unknown Rx Sulfamethoxazole/Trimethoprim 1 each PO BID #6 tablet 03/23/18 Unknown Rx [Bactrim DS TAB] ED Physical Exam - General Limitations: No Limitations General appearance: alert, anxious - Head Head exam: Present: atraumatic, normocephalic - Eye Eye exam: Present: PERRL, EOMI - ENT ENT exam: Present: normal exam, normal orophraynx - Neck Neck exam: Present: normal inspection. Absent: tenderness, meningismus - Respiratory Respiratory exam: Present: normal lung sounds bilaterally. Absent: respiratory distress, wheezes, rales, rhonchi, stridor, chest wall tenderness, accessory muscle use, decreased breath sounds, prolonged expiratory - Cardiovascular Cardiovascular Exam: Present: regular rate, normal rhythm, normal heart sounds. Absent: bradycardia, tachycardia, irregular rhythm, systolic murmur, diastolic murmur, rubs, gallop - GI/Abdominal GI/Abdominal exam: Present: soft, tenderness. Absent: distended, guarding, rebound, rigid, mass, bruit, pulsatile mass (mild diffuse tenderness) - Rectal Rectal exam: Present: heme (-) stool, hemorrhoids, other (no heme positive stool with normal brown stool). Absent: mass, tenderness - Extremities Exam Extremities exam: Present: normal capillary refill. Absent: pedal edema, joint swelling - Back Exam Back exam: Present: normal inspection. Absent: tenderness, CVA tenderness (R), CVA tenderness (L), muscle spasm, paraspinal tenderness, vertebral tenderness ED Medical Decision Making - Lab Data Result diagrams: 03/23/18 12:02 03/23/18 12:02 - Radiology Data Radiology results: report reviewed - Medical Decision Making Patient was in quite a bit of distress therefore CT abdomen and pelvis was obtained and this is read as no acute process per radiologist symptoms are improved in the ED with pain control as well as anti-medics and anti-cramp medicine. Patient is tolerating by mouth no acute abdomen at this time does have possible UTI she is tolerating by mouth stable for outpatient follow-up . no blood was appreciated on rectal exam she did have heme-negative brown stool symptoms are possibly related to hemorrhoidal bleeding she will need outpatient follow-up for further evaluation of bright red blood per rectum but is stable for outpatient follow-up this time vital signs are stable no active GI bleeding was appreciated Critical care attestation.: If time is entered above; I have spent that time in minutes in the direct care of this critically ill patient, excluding procedure time. ED Disposition Clinical Impression: Abdominal pain, Gastroparesis, Hematochezia Disposition: TO HOME OR SELFCARE Is pt being admited?: No Condition: Stable Instructions: Abdominal Pain (ED), Rectal Bleeding (ED), Urinary Tract Infection in Women (ED) Additional Instructions: See the doctor list is her regular doctor he will need to see a GI doctor to further evaluate her rectal bleeding return immediately if new alarming symptoms take the medication as instructed Prescriptions: Ondansetron [Zofran Odt] 4 mg PO TID PRN #10 tab.rapdis PRN Reason: Nausea And Vomiting Sulfamethoxazole/Trimethoprim [Bactrim DS TAB] 1 each PO BID #6 tablet Referrals: PRIMARY CARE, [Primary Care Provider] - 3-5 Days ROBE VIZCAINO MD [Staff Physician] - 3-5 Days Time of Disposition: 16:50
[2018-03-23 12:31] LABS: Mean Corpuscular Hemoglobin 25 pg (28-32); Red Cell Distribution Width 20.1 % (13.2-15.2)
[2018-03-23] MEDS ORDERED: DILAUDID IV ONE ×2 (12:32→14:39)
[2018-03-23 12:52] LABS: Alanine Aminotransferase 19 units/L (7-56); Albumin 3.8 g/dL (3.9-5); BUN/Creatinine Ratio 18; Blood Urea Nitrogen 11 mg/dL (7-17); Calcium 9.5 mg/dL (8.4-10.2); Hemolysis Index 10; Lipase 36 units/L (13-60)
[2018-03-23] MEDS ORDERED: ZOFRAN IV ONE (14:28)
[2018-03-23] MEDS ORDERED: PHENERGAN PO ONE (14:31)
[2018-03-23 15:44] LABS: Bilirubin,Urine NEG (Negative); Blood,Urine SM (Negative); Color,Urine Yellow (Yellow); Urobilinogen,Urine < 2.0 mg/dL (<2.0)
--- NOTE | 2018-03-23 16:36 | Cat Scan Report ---
FINAL REPORT PROCEDURE: CT abdomen and pelvis without contrast. TECHNIQUE: Computerized axial tomography of the abdomen and pelvis was performed without intravenous contrast. This study is performed without intravascular contrast material and its sensitivity for abdominal and pelvic pathology, including neoplasms, inflammation, abscess, free fluid, thrombosis, arterial dissection and infarction, is reduced compared with a contrast enhanced study. HISTORY: Flank pain. COMPARISON: CT abdomen and pelvis 09/08/2017. FINDINGS: The lung bases are clear. There are no pleural effusions. The heart size is normal. The liver, pancreas and spleen are grossly normal. Cholecystectomy clips are present. There is no biliary dilatation. The adrenal glands are not enlarged. Both kidneys appear normal in size and configuration. There is a tiny nonobstructing calculus in the middle 3rd of the right kidney. This measures 1.4 millimeters in diameter. There is no hydronephrosis. The abdominal aorta has a normal caliber. There is no retroperitoneal adenopathy. The unopacified gastrointestinal tract is unremarkable. The appendix has probably been removed. The bladder, uterus and adnexal regions appear normal. The regional skeleton appears intact. IMPRESSION: Previous cholecystectomy. Tiny nonobstructing right renal calculus. No evidence of acute disease in the abdomen or pelvis.
[2018-03-23 16:54] VITALS: BP 145/95
== END 2018-03-23 17:03 | disposition home or self-care (01) ==
LOC: ED 11:42
DX: K31.84 Gastroparesis (principal); K92.1 Melena; E11.9 Type 2 diabetes mellitus without complications; I10 Essential (primary) hypertension; J45.909 Unspecified asthma, uncomplicated; Z90.49 Acquired absence of other specified parts of digestive tract; Z98.51 Tubal ligation status; Z79.4 Long term (current) use of insulin; Z88.5 Allergy status to narcotic agent
CPT/HCPCS: 36415; 74176; 80053; 81001; 82010; 82271; 82805; 83690; 84703; 85025; 87086; 96361; 96374; 96375; 96376; 99284; J1170; J2405; J2765; J7030

== ENCOUNTER 2018-03-28 02:33 | Emergency (ER) | payer MEDICARE, OTHER ==
[2018-03-28 03:20] LABS: Basophils # (Auto) 0.1 K/mm3 (0.0-0.1); Basophils % (Auto) 0.9 % (0.0-1.8); Eosinophils # (Auto) 0.1 K/mm3 (0.0-0.4); Eosinophils % (Auto) 1.1 % (0.0-4.3); Hematocrit 36.7 % (30.3-42.9); Hemoglobin 12.2 gm/dl (10.1-14.3); Lymphocytes # (Auto) 1.5 K/mm3 (1.2-5.4); Lymphocytes % (Auto) 21.1 % (13.4-35.0); Mean Corpuscular HGB Conc 33 % (30-34); Mean Corpuscular Volume 74 fl (79-97); Monocytes # (Auto) 0.3 K/mm3 (0.0-0.8); Monocytes % (Auto) 4.4 % (0.0-7.3); Platelet Count 363 K/mm3 (140-440); Red Blood Count 4.93 M/mm3 (3.65-5.03); Red Cell Distribution Width 19.2 % (13.2-15.2)
[2018-03-28 03:44] LABS: Mean Corpuscular Hemoglobin 25 pg (28-32)
[2018-03-28 03:53] LABS: Alanine Aminotransferase 14 units/L (7-56); Albumin 4.1 g/dL (3.9-5); BUN/Creatinine Ratio 19; Blood Urea Nitrogen 13 mg/dL (7-17); Calcium 9.4 mg/dL (8.4-10.2); Hemolysis Index 47
[2018-03-28] MEDS ORDERED: NACL 0.9% 1000 ML 1,000 ML IV ONE ×2 (05:27→09:23)
[2018-03-28 06:13] LABS: Amorphous Crystals,Urine 1+; Bilirubin,Urine NEG (Negative); Blood,Urine NEG (Negative); Color,Urine Yellow (Yellow); Mucus,Urine FEW /HPF; Urobilinogen,Urine < 2.0 mg/dL (<2.0)
[2018-03-28] MEDS ORDERED: NORCO 5/325 PO ONE ×2 (06:21→10:20)
[2018-03-28] MEDS ORDERED: ZOFRAN IV ONE ×2 (06:21→08:18)
[2018-03-28] MEDS ORDERED: PEPCID IV ONE (06:21)
--- NOTE | 2018-03-28 06:29 | Emergency Department Report ---
HPI - General Chief Complaint: Abdominal Pain Time Seen by Provider: 03/28/18 06:11 - HPI HPI: Room 8 The patient is a 37-year-old female presenting with chief complaint of abdominal pain. Patient states for the past 6 days she has had diffuse abdominal pain in addition to nausea and vomiting. The patient states the past 2 days she's had the urge to urinate but has been unable to. The patient was seen in this ED 5 days ago for the same complaints and CT scan of the abdomen performed which doesn't reveal any acute abnormalities. The patient had a Catherine catheter placed in the ED today Location: Abdomen Duration: 6 days Quality: Pain Severity: Moderate Modifying factors: [see above] Context: [see above] Mode of transportation: [not driving] ED Past Medical Hx - Past Medical History Previous Medical History?: Yes Hx Hypertension: Yes (?) Hx Diabetes: Yes Hx Asthma: Yes Additional medical history: gastroparesis (no official dx) - Surgical History Past Surgical History?: Yes Hx Cholecystectomy: Yes Hx Appendectomy: Yes Additional Surgical History: tubal ligation. x 2 - Family History Family history: no significant - Social History Smoking Status: Never Smoker Substance Use Type: None (denies illicit drug use) - Medications Home Medications: Home Medications Medication Instructions Recorded Confirmed Last Taken Type Insulin Glargine [Lantus VIAL] 20 unit SUB-Q QHS 01/18/17 02/21/18 02/20/18 History Insulin Aspart Prot/Aspart(Nf) 15 units SQ AC #7 units 02/23/18 Unknown Rx [NovoLOG Mix 70/30 VIAL] Levofloxacin [Levaquin TAB] 750 mg PO Q24H #7 tablet 02/23/18 Unknown Rx amLODIPine [Norvasc] 10 mg PO QDAY tablet 02/23/18 Unknown Rx oxyCODONE /ACETAMINOPHEN [Percocet 1 tab PO Q4H PRN #30 tablet 02/23/18 Unknown Rx 5/325 mg] Ondansetron [Zofran Odt] 4 mg PO TID PRN #10 tab.rapdis 03/23/18 Unknown Rx Sulfamethoxazole/Trimethoprim 1 each PO BID #6 tablet 03/23/18 Unknown Rx [Bactrim DS TAB] Famotidine [Pepcid] 20 mg PO BID #20 tablet 03/28/18 Unknown Rx HYDROcodone/APAP 5-325 [[place] 1 - 2 each PO Q6HR PRN #14 tablet 03/28/18 Unknown Rx 5/325] Promethazine [Phenergan TAB] 25 mg PO Q6HR PRN #20 tab 03/28/18 Unknown Rx Promethazine [Phenergan] 25 mg [place] Q6HR PRN #5 supp.rect 03/28/18 Unknown Rx ED Review of Systems ROS: Stated complaint: ABD PAIN Other details as noted in HPI Gastrointestinal: abdominal pain, nausea, vomiting Genitourinary: other (inability to urinate) Musculoskeletal: back pain Physical Exam - Physical Exam Vital Signs: Vital Signs 03/28/18 03/28/18 02:51 05:40 Temperature 98.1 F 98.7 F Pulse Rate 102 H 101 H Respiratory 20 28 H Rate Blood Pressure 150/101 Blood Pressure 158/100 [Left] O2 Sat by Pulse 98 99 Oximetry Physical Exam: GENERAL: The patient is well-developed well-nourished female lying on stretcher not appearing to be in acute distress. [] HEENT: Normocephalic. Atraumatic. Extraocular motions are intact. Patient has moist mucous membranes. NECK: Supple. Trachea midline CHEST/LUNGS: Clear to auscultation. There is no respiratory distress noted. HEART/CARDIOVASCULAR: Regular. There is no tachycardia. There is no gallop rub or murmur. ABDOMEN: Abdomen is soft, with diffuse discomfort to palpation. There is no rebound or guarding. Patient has normal bowel sounds. There is no abdominal distention. SKIN: There is no rash. There is no edema. There is no diaphoresis. NEURO: The patient is awake, alert, and oriented. The patient is cooperative. The patient has normal speech MUSCULOSKELETAL: There is no evidence of acute injury. ED Course Vital Signs 03/28/18 03/28/18 02:51 05:40 Temperature 98.1 F 98.7 F Pulse Rate 102 H 101 H Respiratory 20 28 H Rate Blood Pressure 150/101 Blood Pressure 158/100 [Left] O2 Sat by Pulse 98 99 Oximetry ED Medical Decision Making - Lab Data Result diagrams: 03/28/18 03:05 03/28/18 03:05 Laboratory Tests 03/28/18 03/28/18 03/28/18 03:05 03:05 05:57 WBC 6.9 RBC 4.93 Hgb 12.2 Hct 36.7 MCV 74 L MCH 25 L MCHC 33 RDW 19.2 H Plt Count 363 Lymph % (Auto) 21.1 [place] % (Auto) 4.4 Eos % (Auto) 1.1 Baso % (Auto) 0.9 Lymph # 1.5 [place] # 0.3 Eos # 0.1 Baso # 0.1 Seg Neutrophils % 72.5 H Seg Neutrophils # 5.0 Sodium 133 L Potassium 4.0 Chloride 90.4 L Carbon Dioxide 27 Anion Gap 20 BUN 13 Creatinine 0.7 Estimated GFR > 60 BUN/Creatinine Ratio 19 Glucose 402 H Calcium 9.4 Total Bilirubin 0.40 AST 21 ALT 14 Alkaline Phosphatase 103 Total Protein 8.2 Albumin 4.1 Albumin/Globulin Ratio 1.0 Urine Color Yellow Urine Turbidity Clear Urine pH 5.0 Ur Specific [place] 1.024 Urine Protein 100 mg/dl Urine Glucose (UA) >=500 Urine Ketones Tr Urine Blood Neg Urine Nitrite Neg Urine Bilirubin Neg Urine Urobilinogen < 2.0 Ur Leukocyte Esterase Neg Urine WBC (Auto) 3.0 Urine RBC (Auto) 5.0 Amorphous Crystals 1+ Urine Mucus Few Laboratory Tests 03/28/18 03/28/18 03/28/18 03:05 03:05 05:57 WBC 6.9 RBC 4.93 Hgb 12.2 Hct 36.7 MCV 74 L MCH 25 L MCHC 33 RDW 19.2 H Plt Count 363 Lymph % (Auto) 21.1 [place] % (Auto) 4.4 Eos % (Auto) 1.1 Baso % (Auto) 0.9 Lymph # 1.5 [place] # 0.3 Eos # 0.1 Baso # 0.1 Seg Neutrophils % 72.5 H Seg Neutrophils # 5.0 Sodium 133 L Potassium 4.0 Chloride 90.4 L Carbon Dioxide 27 Anion Gap 20 BUN 13 Creatinine 0.7 Estimated GFR > 60 BUN/Creatinine Ratio 19 Glucose 402 H POC Glucose Calcium 9.4 Total Bilirubin 0.40 AST 21 ALT 14 Alkaline Phosphatase 103 Total Protein 8.2 Albumin 4.1 Albumin/Globulin Ratio 1.0 Urine Color Yellow Urine Turbidity Clear Urine pH 5.0 Ur Specific [place] 1.024 Urine Protein 100 mg/dl Urine Glucose (UA) >=500 Urine Ketones Tr Urine Blood Neg Urine Nitrite Neg Urine Bilirubin Neg Urine Urobilinogen < 2.0 Ur Leukocyte Esterase Neg Urine WBC (Auto) 3.0 Urine RBC (Auto) 5.0 Amorphous Crystals 1+ Urine Mucus Few 03/28/18 03/28/18 03/28/18 06:32 09:22 10:21 WBC RBC Hgb Hct MCV MCH MCHC RDW Plt Count Lymph % (Auto) [place] % (Auto) Eos % (Auto) Baso % (Auto) Lymph # [place] # Eos # Baso # Seg Neutrophils % Seg Neutrophils # Sodium Potassium Chloride Carbon Dioxide Anion Gap BUN Creatinine Estimated GFR BUN/Creatinine Ratio Glucose POC Glucose 323 H 320 H 112 H Calcium Total Bilirubin AST ALT Alkaline Phosphatase Total Protein Albumin Albumin/Globulin Ratio Urine Color Urine Turbidity Urine pH Ur Specific [place] Urine Protein Urine Glucose (UA) Urine Ketones Urine Blood Urine Nitrite Urine Bilirubin Urine Urobilinogen Ur Leukocyte Esterase Urine WBC (Auto) Urine RBC (Auto) Amorphous Crystals Urine Mucus - Differential Diagnosis gastroparesis, urinary retention, UTI, Critical care attestation.: If time is entered above; I have spent that time in minutes in the direct care of this critically ill patient, excluding procedure time. ED Disposition Clinical Impression: Diffuse abdominal pain, Vomiting, Hyperglycemia Disposition: TO HOME OR SELFCARE Is pt being admited?: No Does the pt Need Aspirin: No Condition: Stable Instructions: Abdominal Pain (ED) Additional Instructions: Return to the emergency department immediately should you develop worsening symptoms, fever, inability to tolerate food or liquid or any other concerns. Prescriptions: Famotidine [Pepcid] 20 mg PO BID #20 tablet HYDROcodone/APAP 5-325 [[place] 5/325] 1 - 2 each PO Q6HR PRN #14 tablet PRN Reason: Pain Promethazine [Phenergan TAB] 25 mg PO Q6HR PRN #20 tab PRN Reason: Nausea Promethazine [Phenergan] 25 mg [place] Q6HR PRN #5 supp.rect PRN Reason: Vomiting Referrals: PRIMARY CARE, [Primary Care Provider] - 3-5 Days WALDEMAR VILLANUEVA MD [Staff Physician] - 3-5 Days (Dr. Villanueva is a orthopedic specialist. Please follow up with for further evaluation) Time of Disposition: 10:23
[2018-03-28] MEDS ORDERED: ZOFRAN IM ONE (07:10)
[2018-03-28] MEDS ORDERED: HumuLIN R SUB-Q ONE (07:10)
[2018-03-28] MEDS ORDERED: MORPHINE IV ONE ×2 (08:16→08:30)
[2018-03-28] MEDS ORDERED: MORPHINE ONE (08:20)
[2018-03-28] MEDS ORDERED: BENADRYL IV ONE (08:28)
[2018-03-28] MEDS ORDERED: BENADRYL ONE (08:28)
[2018-03-28] MEDS ORDERED: HumuLIN R IV ONE (09:22)
[2018-03-28 09:39] VITALS: BP 157/94
[2018-03-28] MEDS ORDERED: REGLAN IV ONE (10:20)
[2018-03-28] MEDS ORDERED: NORCO 10/325 PO ONE (10:21)
[2018-03-28] MEDS ORDERED: PHENERGAN PO ONE (10:27)
== END 2018-03-28 11:30 | disposition home or self-care (01) ==
LOC: ED 02:33
DX: E11.65 Type 2 diabetes mellitus with hyperglycemia (principal); R10.84 Generalized abdominal pain; R11.2 Nausea with vomiting, unspecified; I10 Essential (primary) hypertension; J45.909 Unspecified asthma, uncomplicated
CPT/HCPCS: 36415; 80053; 81001; 82962; 85025; 96361; 96372; 96374; 96375; 99284; J1200; J2270; J2405; J7030; J1815; J2765; Q0169

== ENCOUNTER 2018-04-16 08:19 | Emergency (ER) | payer MEDICAID ==
[2018-04-16] MEDS ORDERED: MORPHINE IV ONE (09:02)
[2018-04-16] MEDS ORDERED: ZOFRAN IV ONE (09:04)
[2018-04-16] MEDS ORDERED: NACL 0.9% 1000 ML 1,000 ML IV ONE ×2 (09:06→13:03)
--- NOTE | 2018-04-16 09:06 | Emergency Department Report ---
HPI - General Chief Complaint: Abdominal Pain Time Seen by Provider: 04/16/18 08:50 - HPI HPI: 37-year-old female presents to the emergency department by EMS with a complaint of a four-day history of generalized abdominal pain, nausea and vomiting. He diabetes, asthma and questionable gastroparesis. Her senior materials planner is Dr. Robe Soliman. She says that she does not have any primary care physician. Recent travel or sick contacts at home. She has not taken anything for her symptoms prior to presentation. She denies any fever, dysuria, vaginal bleeding or discharge. ED Past Medical Hx - Past Medical History Previous Medical History?: Yes Hx Hypertension: Yes (?) Hx Heart Attack/AMI: No Hx Congestive Heart Failure: No Hx Diabetes: Yes Hx Deep Vein Thrombosis: No Hx Asthma: Yes Hx COPD: No Hx HIV: No Additional medical history: gastroparesis (no official dx) - Surgical History Past Surgical History?: Yes Hx Coronary Stent: No Hx Cholecystectomy: Yes Hx Appendectomy: Yes Additional Surgical History: tubal ligation. x 2 - Social History Smoking Status: Never Smoker Substance Use Type: None (denies illicit drug use) - Medications Home Medications: Home Medications Medication Instructions Recorded Confirmed Last Taken Type Insulin Glargine [Lantus VIAL] 20 unit SUB-Q QHS 01/18/17 02/21/18 02/20/18 History Insulin Aspart Prot/Aspart(Nf) 15 units SQ AC #7 units 02/23/18 Unknown Rx [NovoLOG Mix 70/30 VIAL] Levofloxacin [Levaquin TAB] 750 mg PO Q24H #7 tablet 02/23/18 Unknown Rx amLODIPine [Norvasc] 10 mg PO QDAY tablet 02/23/18 Unknown Rx oxyCODONE /ACETAMINOPHEN [Percocet 1 tab PO Q4H PRN #30 tablet 02/23/18 Unknown Rx 5/325 mg] Sulfamethoxazole/Trimethoprim 1 each PO BID #6 tablet 03/23/18 Unknown Rx [Bactrim DS TAB] Famotidine [Pepcid] 20 mg PO BID #20 tablet 03/28/18 Unknown Rx HYDROcodone/APAP 5-325 [[place] 1 - 2 each PO Q6HR PRN #14 tablet 03/28/18 Unknown Rx 5/325] Promethazine [Phenergan TAB] 25 mg PO Q6HR PRN #20 tab 03/28/18 Unknown Rx Promethazine [Phenergan] 25 mg [place] Q6HR PRN #5 supp.rect 03/28/18 Unknown Rx Ondansetron [Zofran Odt] 4 mg PO TID PRN #10 tab.rapdis 04/16/18 Unknown Rx traMADol [Ultram 50 MG tab] 50 mg PO Q6HR PRN #10 tablet 04/16/18 Unknown Rx ED Review of Systems ROS: Stated complaint: ABD PAIN Other details as noted in HPI Comment: All other systems reviewed and negative Constitutional: denies: chills, fever Eyes: denies: eye pain, eye discharge, vision change ENT: denies: ear pain, throat pain Respiratory: denies: cough, shortness of breath, wheezing Cardiovascular: denies: chest pain, palpitations Gastrointestinal: abdominal pain, nausea, vomiting Genitourinary: denies: urgency, dysuria, discharge Musculoskeletal: denies: back pain, joint swelling, arthralgia Skin: denies: rash, lesions Neurological: denies: headache, weakness, paresthesias Physical Exam - Physical Exam Vital Signs: Vital Signs 04/16/18 08:43 Temperature 98.7 F Pulse Rate 97 H Respiratory 18 Rate Blood Pressure 160/100 O2 Sat by Pulse 98 Oximetry Physical Exam: GENERAL: The patient is well-developed well-nourished. HENT: Normocephalic. Atraumatic. Patient has moist mucous membranes. EYES: Extraocular motions are intact. Pupils equal reactive to light bilaterally. NECK: Supple. Trachea is midline. CHEST/LUNGS: Clear to auscultation. There is no respiratory distress noted. HEART/CARDIOVASCULAR: Regular. There is no tachycardia. There is no murmur. ABDOMEN: Abdomen is soft. Generalized tenderness to palpation of the abdomen. No guarding. Patient has normal bowel sounds. There is no abdominal distention. SKIN: Skin is warm and dry. NEURO: The patient is awake, alert, and oriented. The patient is cooperative. The patient has no focal neurologic deficits. The patient has normal speech. MUSCULOSKELETAL: There is no tenderness or deformity. There is no limitation range of motion. There is no evidence of acute injury. ED Course Vital Signs 04/16/18 08:43 Temperature 98.7 F Pulse Rate 97 H Respiratory 18 Rate Blood Pressure 160/100 O2 Sat by Pulse 98 Oximetry ED Medical Decision Making - Lab Data Result diagrams: 04/16/18 09:05 04/16/18 09:05 - Radiology Data Radiology results: image reviewed interpreted by me: Abdominal x-ray shows nonspecific nonobstructive bowel gas. - Medical Decision Making This patient is well-known to this emergency department and presents with a recurrent issue that includes nausea and vomiting and generalized abdominal pain. There is a questionable previous diagnosis of gastroparesis. She has a senior materials planner at [facility] for follow-up. He was difficult at first to establish IV once an IV was established the patient was given a total of 2 L of IV fluid as well as pain and nausea medication. The labs showed hyperglycemia with a blood sugar of about 500 but she does not appear to be in diabetic ketoacidosis as there is no venous acidosis and she does not have an elevated anion gap. She was given 2 different doses of IV insulin and her blood sugar came down to 120. The rest of the labs are mostly unremarkable. The patient says that she has some difficulty with urination. She did allow for a Catherine catheter be placed and we were able to obtain a urinalysis that did not show any signs of any urinary tract infection. She does not have any hematuria or any signs of renal insufficiency. She had this issue back in March as well. Part of it may be some dehydration and she has some concentrated urine but there is no ketones. Patient was able to keep down some juice and water. Vital signs stable throughout her ED course. She appears safe for discharge home at this time. She has been given a referral for urology regarding her urinary issues. She has primary care and gastroenterology. I checked her on the [place] prescription monitoring it appears that she had a large amount of narcotics filled in late March but she says it was just filled at the pharmacy and she never picked it up because it was too expensive for such a large quantity. It appears that she goes to a pain management center. I'm giving her the benefit of the doubt and I have given her a very small amount of pain medication for home but she has been encouraged to see the primary care and /or pain management. She's been encouraged to return to the emergency department with any inability to keep down fluids or stay hydrated or any worsening of her symptoms or any acute distress. - Differential Diagnosis gastroparesis, bowel obstruction, colitis, diverticulitis Critical Care Time: No Critical care attestation.: If time is entered above; I have spent that time in minutes in the direct care of this critically ill patient, excluding procedure time. ED Disposition Clinical Impression: Abdominal pain Qualifiers: Abdominal location: generalized Qualified Code(s): R10.84 - Generalized abdominal pain Nausea & vomiting Qualifiers: Vomiting type: unspecified Vomiting Intractability: non-intractable Qualified Code(s): R11.2 - Nausea with vomiting, unspecified Hypertension Qualifiers: Hypertension type: essential hypertension Qualified Code(s): I10 - Essential ( primary) hypertension Disposition: TO HOME OR SELFCARE Is pt being admited?: No Condition: Stable Instructions: Acute Nausea and Vomiting (ED), Abdominal Pain (ED), Hypertension (ED) Additional Instructions: Please follow up with a primary care physician in the next few days. Please follow-up with your senior materials planner, Dr. Robe Soliman Prescriptions: Ondansetron [Zofran Odt] 4 mg PO TID PRN #10 tab.rapdis PRN Reason: Nausea And Vomiting traMADol [Ultram 50 MG tab] 50 mg PO Q6HR PRN #10 tablet PRN Reason: Pain Referrals: PRIMARY CARE, [Primary Care Provider] - 3-5 Days ROBE MONROE MD [Staff Physician] - 3-5 Days PATTI CUADRA MD [Staff Physician] - 3-5 Days Time of Disposition: 16:25
[2018-04-16 09:18] LABS: Basophils # (Auto) 0.1 K/mm3 (0.0-0.1); Basophils % (Auto) 0.5 % (0.0-1.8); Eosinophils # (Auto) 0.2 K/mm3 (0.0-0.4); Eosinophils % (Auto) 1.8 % (0.0-4.3); Hematocrit 36.5 % (30.3-42.9); Hemoglobin 11.7 gm/dl (10.1-14.3); Lymphocytes # (Auto) 2.1 K/mm3 (1.2-5.4); Lymphocytes % (Auto) 18.2 % (13.4-35.0); Mean Corpuscular HGB Conc 32 % (30-34); Mean Corpuscular Volume 78 fl (79-97); Monocytes # (Auto) 0.4 K/mm3 (0.0-0.8); Monocytes % (Auto) 3.7 % (0.0-7.3); Platelet Count 380 K/mm3 (140-440); Red Blood Count 4.69 M/mm3 (3.65-5.03); Red Cell Distribution Width 19.8 % (13.2-15.2)
[2018-04-16 09:21] LABS: Mean Corpuscular Hemoglobin 25 pg (28-32)
[2018-04-16 09:34] LABS: Albumin 3.7 g/dL (3.9-5); BUN/Creatinine Ratio 16; Blood Urea Nitrogen 11 mg/dL (7-17); Calcium 9.6 mg/dL (8.4-10.2); Hemolysis Index 8
[2018-04-16 09:37] LABS: Alanine Aminotransferase < 5 units/L (7-56)
[2018-04-16] MEDS ORDERED: HumuLIN R IV ONE ×2 (10:10→13:03)
[2018-04-16] MEDS ORDERED: DILAUDID IM ONE (12:00)
[2018-04-16] MEDS ORDERED: BENADRYL IV ONE (13:03)
--- NOTE | 2018-04-16 13:35 | XRay Report ---
ABDOMEN, 2 views: History: Abdominal pain. There is no evidence of free air beneath the diaphragms. The gas pattern within the abdomen is unremarkable. There is no evidence of bowel dilatation, significant air-fluid levels, or pathologic calcifications. Organ shadows are unremarkable. Cholecystectomy changes are noted. IMPRESSION: Unremarkable abdomen.
[2018-04-16] MEDS ORDERED: PERCOCET 5/325 PO ONE (15:06)
[2018-04-16 16:17] LABS: Bacteria,Urine 1+ /HPF (Negative); Bilirubin,Urine NEG (Negative); Blood,Urine SM (Negative); Color,Urine Yellow (Yellow); Mucus,Urine FEW /HPF; Urobilinogen,Urine < 2.0 mg/dL (<2.0)
[2018-04-16 16:23] LABS: Protein,Urine >500 mg/dL (Negative)
[2018-04-16 16:36] VITALS: BP 133/88
== END 2018-04-16 16:36 | disposition home or self-care (01) ==
LOC: ED 08:19
DX: R10.84 Generalized abdominal pain (principal); R11.2 Nausea with vomiting, unspecified; I10 Essential (primary) hypertension; E11.9 Type 2 diabetes mellitus without complications; J45.909 Unspecified asthma, uncomplicated; Z79.4 Long term (current) use of insulin
CPT/HCPCS: 36415; 74019; 80053; 81001; 82805; 82962; 83690; 84703; 85025; 96361; 96372; 96374; 96375; 96376; 99285; J1170; J1200; J2270; J2405; J7030; J1815

== ENCOUNTER 2018-04-30 21:10 | Emergency (ER) | payer MEDICARE | END 2018-04-30 21:11 | disposition left against medical advice (07) | LOC: ED 21:10 | DX: R10.9 Unspecified abdominal pain (principal); Z88.1 Allergy status to other antibiotic agents; Z88.8 Allergy status to other drugs, medicaments and biological substances; Z53.21 Procedure and treatment not carried out due to patient leaving prior to being seen by health care provider ==

== ENCOUNTER 2018-11-18 07:30 | Emergency (ER) | payer MEDICARE ==
[2018-11-18 07:38] VITALS: BP 182/99
--- NOTE | 2018-11-18 08:41 | Emergency Department Report ---
ED Abdominal Pain HPI - General Chief Complaint: Abdominal Pain Stated Complaint: STOMACH PAIN Time Seen by Provider: 11/18/18 08:11 Source: patient, EMS Mode of arrival: Ambulatory Limitations: No Limitations - History of Present Illness Initial Comments: Patient is a 38-year-old -[place] female who comes to the ER today via ambulance with complaints of diffuse abdominal pain. Please refer to EMR for previous visits for the same. Although patient reports nausea vomiting and diarrhea she has had none in the emergency room. Her vital signs are stable. She is nontoxic. She has no fever. On exam if you just lightly touch her abdomen she is calls with pain. She is repetitively asking for pain medication. Please refer to allergies. MD Complaint: abdominal pain -: Gradual, days(s) Location: diffuse Radiation: none Migration to: no migration Severity: severe Quality: aching Consistency: constant Improves With: medication Worsens With: nothing Context: other (chronic- see EMR) - Related Data Home Medications Medication Instructions Recorded Confirmed Last Taken Insulin Glargine [Lantus VIAL] 20 unit SUB-Q QHS 01/18/17 02/21/18 02/20/18 Previous Rx's Medication Instructions Recorded Last Taken Type Insulin Aspart Prot/Aspart(Nf) 15 units SQ AC #7 units 02/23/18 Unknown Rx [NovoLOG Mix 70/30 VIAL] Famotidine [Pepcid] 20 mg PO BID #20 tablet 03/28/18 Unknown Rx amLODIPine [Norvasc] 5 mg PO DAILY #60 tab 10/19/18 Unknown Rx metFORMIN [Glucophage] 500 mg PO BID #60 tablet 10/19/18 Unknown Rx Allergies Allergy/AdvReac Type Severity Reaction Status Date / Time fentanyl Allergy Itching Verified 03/28/18 08:16 ketorolac tromethamine Allergy Shortness Verified 11/03/17 21:01 [From Toradol] of Breath dicyclomine HCl [From Bentyl] AdvReac Hives Verified 11/03/17 21:01 metoclopramide [From Reglan] AdvReac Unknown Verified 03/28/18 10:29 ED Review of Systems ROS: Stated complaint: STOMACH PAIN Other details as noted in HPI Comment: All other systems reviewed and negative Constitutional: denies: chills, fever Eyes: denies: eye pain ENT: denies: throat pain Respiratory: denies: cough Cardiovascular: denies: dyspnea on exertion Endocrine: denies: excessive sweating Gastrointestinal: as per HPI, abdominal pain, nausea, vomiting, diarrhea, other (bm yesterday). denies: constipation, hematemesis, melena, hematochezia Genitourinary: denies: urgency, dysuria, frequency, hematuria, discharge, abnormal menses, dyspareunia Musculoskeletal: denies: back pain Skin: denies: rash Neurological: denies: headache Psychiatric: denies: depression Hematological/Lymphatic: denies: as per HPI ED Past Medical Hx - Past Medical History Previous Medical History?: Yes Hx Hypertension: Yes (?) Hx CVA: No Hx Heart Attack/AMI: No Hx Congestive Heart Failure: No Hx Diabetes: Yes Hx Deep Vein Thrombosis: No Hx Pulmonary Embolism: No Hx GERD: No Hx Liver Disease: No Hx Renal Disease: No Hx Sickle Cell Disease: No Hx Arthritis: No Hx Headaches / Migraines: No Hx Seizures: No Hx Kidney Stones: No Hx Psychiatric Treatment: No Hx Asthma: Yes Hx COPD: No Hx Tuberculosis: No Hx Dementia: No Hx HIV: No Additional medical history: gastroparesis (no official dx) - Surgical History Past Surgical History?: Yes Hx Coronary Stent: No Hx Open Heart Surgery: No Hx Pacemaker: No Hx Internal Defibrillator: No Hx Cholecystectomy: Yes Hx Appendectomy: Yes Hx Breast Surgery: No Additional Surgical History: tubal ligation. x 2 - Family History Family history: no significant - Social History Smoking Status: Never Smoker Substance Use Type: Prescribed - Medications Home Medications: Home Medications Medication Instructions Recorded Confirmed Last Taken Type Insulin Glargine [Lantus VIAL] 20 unit SUB-Q QHS 01/18/17 02/21/18 02/20/18 History Insulin Aspart Prot/Aspart(Nf) 15 units SQ AC #7 units 02/23/18 Unknown Rx [NovoLOG Mix 70/30 VIAL] Famotidine [Pepcid] 20 mg PO BID #20 tablet 03/28/18 Unknown Rx amLODIPine [Norvasc] 5 mg PO DAILY #60 tab 10/19/18 Unknown Rx metFORMIN [Glucophage] 500 mg PO BID #60 tablet 10/19/18 Unknown Rx ED Physical Exam - General Limitations: No Limitations General appearance: alert, anxious, other (unkept, denies cig/etoh/drugs; falling asleep on exam) - Head Head exam: Present: atraumatic - Eye Eye exam: Present: normal appearance - ENT ENT exam: Present: mucous membranes moist - Neck Neck exam: Present: normal inspection - Respiratory Respiratory exam: Present: normal lung sounds bilaterally - Cardiovascular Cardiovascular Exam: Present: regular rate, other (90 on exam) - GI/Abdominal GI/Abdominal exam: Present: soft, tenderness, normal bowel sounds, other (bm yesterday). Absent: distended, guarding, rebound, rigid, diminished bowel sounds, hyperactive bowel sounds, hypoactive bowel sounds, organomegaly, mass, bruit, pulsatile mass, hernia - Rectal Rectal exam: Present: deferred - Extremities Exam Extremities exam: Present: normal inspection, full ROM - Back Exam Back exam: Present: normal inspection, full ROM. Absent: CVA tenderness (R), CVA tenderness (L) - Neurological Exam Neurological exam: Present: alert, oriented X3 - Psychiatric Psychiatric exam: Present: agitated, other (asking for pain meds. ambulating in ER. see allergies. ) ED Course Vital Signs 11/18/18 07:34 Temperature 98.2 F Pulse Rate 101 H Respiratory 18 Rate Blood Pressure 182/99 O2 Sat by Pulse 98 Oximetry - Reevaluation(s) Reevaluation #1: 11/18/18 09:15 Patient has asked for pain medication. Allergies of been noted. She has been offered Motrin or Tylenol. She states that is not going to work. She is asking for narcotics. She is allergic to fentanyl. Within minutes of being told that the patient could have Motrin and Tylenol until we got her lab work back she eloped from the emergency room. Patient is nontoxic and with no life-threatening illness. ED Medical Decision Making - Lab Data Result diagrams: 11/18/18 09:05 - Medical Decision Making vss afebrile asking for pain meds see allergies see previous ER notes additional labs pending at time of elopement Labs 11/18/18 11/18/18 09:05 Unknown WBC 13.0 H RBC 4.00 Hgb 11.4 Hct 34.1 MCV 85 MCH 28 MCHC 33 RDW 14.8 Plt Count 239 Lymph % (Auto) 11.0 L [place] % (Auto) 5.4 Eos % (Auto) 0.1 Baso % (Auto) 0.7 Lymph # 1.4 Edwards # 0.7 Eos # 0.0 Baso # 0.1 Seg Neutrophils % 82.8 H Seg Neutrophils # 10.8 H Urine Color Straw Urine Turbidity Clear Urine pH 6.0 Ur Specific [place] 1.018 Urine Protein 100 mg/dl Urine Glucose (UA) >=500 Urine Ketones Tr Urine Blood Neg Urine Nitrite Neg Urine Bilirubin Neg Urine Urobilinogen < 2.0 Ur Leukocyte Esterase Neg Urine WBC (Auto) < 1.0 Urine RBC (Auto) 1.0 U Epithel Cells (Auto) 1.0 - Differential Diagnosis ro acute abd Critical care attestation.: If time is entered above; I have spent that time in minutes in the direct care of this critically ill patient, excluding procedure time. ED Disposition Clinical Impression: Diffuse abdominal pain, Diabetes Disposition: ELOPED Is pt being admited?: No Does the pt Need Aspirin: No Condition: Stable Referrals: PRIMARY CARE, [Primary Care Provider] - 3-5 Days Time of Disposition: 08:48
[2018-11-18 09:18] LABS: HCG Qualitative,Urine Negative (Negative)
[2018-11-18 09:19] LABS: Bilirubin,Urine NEG (Negative); Blood,Urine NEG (Negative); Color,Urine Straw (Yellow); Urobilinogen,Urine < 2.0 mg/dL (<2.0); WBC,Urine < 1.0 /HPF (0.0-6.0)
[2018-11-18] MEDS ORDERED: IBUPROFEN PO ONE (09:19)
[2018-11-18] MEDS ORDERED: ZOFRAN ORAL LIQ PO ONE (09:19)
[2018-11-18 09:24] LABS: Basophils # (Auto) 0.1 K/mm3 (0.0-0.1); Basophils % (Auto) 0.7 % (0.0-1.8); Eosinophils % (Auto) 0.1 % (0.0-4.3); Hematocrit 34.1 % (30.3-42.9); Hemoglobin 11.4 gm/dl (10.1-14.3); Lymphocytes # (Auto) 1.4 K/mm3 (1.2-5.4); Mean Corpuscular HGB Conc 33 % (30-34); Mean Corpuscular Volume 85 fl (79-97); Monocytes # (Auto) 0.7 K/mm3 (0.0-0.8); Monocytes % (Auto) 5.4 % (0.0-7.3); Platelet Count 239 K/mm3 (140-440); Red Cell Distribution Width 14.8 % (13.2-15.2)
[2018-11-18 09:41] LABS: Alanine Aminotransferase 14 units/L (7-56); Albumin 3.8 g/dL (3.9-5); BUN/Creatinine Ratio 18; Blood Urea Nitrogen 11 mg/dL (7-17); Calcium 8.7 mg/dL (8.4-10.2); Hemolysis Index 30
== END 2018-11-18 09:37 | disposition left against medical advice (07) ==
LOC: ED 07:30
DX: R10.84 Generalized abdominal pain (principal); R11.2 Nausea with vomiting, unspecified; R19.7 Diarrhea, unspecified; E11.9 Type 2 diabetes mellitus without complications; I10 Essential (primary) hypertension; J45.909 Unspecified asthma, uncomplicated; Z90.49 Acquired absence of other specified parts of digestive tract; Z98.51 Tubal ligation status; Z88.6 Allergy status to analgesic agent; Z88.8 Allergy status to other drugs, medicaments and biological substances; Z79.4 Long term (current) use of insulin
CPT/HCPCS: 36415; 80053; 81001; 81025; 83690; 85025; 99283; Q0162

== ENCOUNTER 2019-01-12 14:39 | Emergency (ER) | payer MEDICARE ==
--- NOTE | 2019-01-12 15:01 | Emergency Department Report ---
Blank Doc - Documentation Documentation: This is a 38-year-old female that presents with abdominal pain with nausea and vomiting x4 days. This initial assessment/diagnostic orders/clinical plan/treatment(s) is/are subject to change based on patient's health status, clinical progression and re- assessment by fellow clinical providers in the ED. Further treatment and workup at subsequent clinical providers discretion. Patient/guardians urged not to elope from the ED as their condition may be serious if not clinically assessed and managed. Initial orders include: 1- Patient sent to [facility] for further evaluation and treatment 2- labs
[2019-01-12 15:26] LABS: Basophils # (Auto) 0.1 K/mm3 (0.0-0.1); Basophils % (Auto) 0.9 % (0.0-1.8); Eosinophils # (Auto) 0.1 K/mm3 (0.0-0.4); Eosinophils % (Auto) 0.9 % (0.0-4.3); Hematocrit 36.9 % (30.3-42.9); Hemoglobin 12.1 gm/dl (10.1-14.3); Lymphocytes # (Auto) 1.4 K/mm3 (1.2-5.4); Lymphocytes % (Auto) 14.7 % (13.4-35.0); Mean Corpuscular HGB Conc 33 % (30-34); Mean Corpuscular Volume 89 fl (79-97); Monocytes # (Auto) 0.3 K/mm3 (0.0-0.8); Monocytes % (Auto) 3.5 % (0.0-7.3); Red Blood Count 4.18 M/mm3 (3.65-5.03); Red Cell Distribution Width 14.8 % (13.2-15.2)
[2019-01-12 15:28] LABS: Platelet Count 254 K/mm3 (140-440)
[2019-01-12 16:39] LABS: Alanine Aminotransferase 15 units/L (7-56); Albumin 3.5 g/dL (3.9-5); BUN/Creatinine Ratio 13; Blood Urea Nitrogen 10 mg/dL (7-17); Calcium 9.1 mg/dL (8.4-10.2); Hemolysis Index 23
[2019-01-12 16:40] LABS: Bilirubin,Direct < 0.2 mg/dL (0-0.2)
[2019-01-12] MEDS ORDERED: NACL 0.9% 1000 ML 1,000 ML IV ONE (17:15)
[2019-01-12] MEDS ORDERED: ZOFRAN IV ONE (17:15)
--- NOTE | 2019-01-12 17:18 | Emergency Department Report ---
Vomiting/Diarrhea - HPI Chief Complaint: Abdominal Pain Stated Complaint: CHEST PAIN/STOMACH PAIN Time Seen by Provider: 01/12/19 15:00 Duration: 6 days Severity: moderate Nausea/Vomiting Severity: Moderate Diarrhea Severity: Moderate Pain Location: Generalized Pain Severity: Moderate Symptoms: Yes Watery Diarrhea, Yes Able to Tolerate Fluids, No Bloody diarrhea, No Fever, No Recent Unusual Foods, No Recent Untreated Water, No Recent use of Antibiotics, No Family w/ Similar Symptoms, No Contacts w/ Similar Symptoms, No Rash, No Hematuria, No Recent URI Symptoms Other History: This is a 38-year-old -[place] female who presents with diffuse abdominal pain, nausea, vomiting, and diarrhea for 6 days. Past medical history of diabetes type 1 and gastroparesis. Patient reports moderate amounts of nausea, vomiting, and diarrhea. She reports taking NovoLog aound 12:00 today. Patient reports pain is radiating from stomach to chest and she reports pain as 10 out of 10 on pain scale with a constant aching sensation. ED Review of Systems ROS: Stated complaint: CHEST PAIN/STOMACH PAIN Other details as noted in HPI Constitutional: denies: chills, fever Respiratory: denies: cough, shortness of breath, wheezing Cardiovascular: denies: chest pain, palpitations Gastrointestinal: abdominal pain, nausea, vomiting, diarrhea. denies: constipation, hematemesis, melena, hematochezia Musculoskeletal: denies: back pain, joint swelling, arthralgia Skin: denies: rash, lesions Neurological: denies: headache, weakness, paresthesias Psychiatric: denies: anxiety, depression ED Past Medical Hx - Past Medical History Hx Hypertension: Yes (?) Hx CVA: No Hx Heart Attack/AMI: No Hx Congestive Heart Failure: No Hx Diabetes: Yes Hx Deep Vein Thrombosis: No Hx Pulmonary Embolism: No Hx GERD: No Hx Liver Disease: No Hx Renal Disease: No Hx Sickle Cell Disease: No Hx Arthritis: No Hx Headaches / Migraines: No Hx Seizures: No Hx Kidney Stones: No Hx Psychiatric Treatment: No Hx Asthma: Yes Hx COPD: No Hx Tuberculosis: No Hx Dementia: No Hx HIV: No Additional medical history: gastroparesis (no official dx) - Surgical History Hx Coronary Stent: No Hx Open Heart Surgery: No Hx Pacemaker: No Hx Internal Defibrillator: No Hx Cholecystectomy: Yes Hx Appendectomy: Yes Hx Breast Surgery: No Additional Surgical History: tubal ligation. x 2 - Social History Smoking Status: Unknown if ever smoked Substance Use Type: None - Medications Home Medications: Home Medications Medication Instructions Recorded Confirmed Last Taken Type Insulin Glargine [Lantus VIAL] 20 unit SUB-Q QHS 01/18/17 02/21/18 02/20/18 History Insulin Aspart Prot/Aspart(Nf) 15 units SQ AC #7 units 02/23/18 Unknown Rx [NovoLOG Mix 70/30 VIAL] Famotidine [Pepcid] 20 mg PO BID #20 tablet 03/28/18 Unknown Rx amLODIPine [Norvasc] 5 mg PO DAILY #60 tab 10/19/18 Unknown Rx metFORMIN [Glucophage] 500 mg PO BID #60 tablet 10/19/18 Unknown Rx Acetaminophen [Tylenol Arthritis] 650 mg PO BID PRN #15 tablet.er 01/12/19 Unknown Rx Ondansetron [Zofran Odt] 4 mg PO Q8HR PRN #20 tab.rapdis 01/12/19 Unknown Rx Promethazine [Phenergan TAB] 25 mg PO Q8HR PRN #20 tab 01/12/19 Unknown Rx Vomiting Diarrhea Exam - Exam General: Vital signs noted. No distress. Alert and acting appropriately. HEENT: Yes Moist Mucous Membranes, No Pharyngeal Erythema, No Pharyngeal Exudates, No Rhinorrhea, No Conjuctival Injection, No Frontal Tenderness, No Maxillary Tenderness Neck: No Adenopathy, No Rigidity Lungs: Yes Clear Lung Sounds, Yes Good Air Exchange, No Wheezes, No Stridor, No Cough, No Nasal Flaring, No Retractions, No Use of Accessory Muscles Heart exam: Regular: Yes, Murmur: No, Tachycardia: No Abdomen: Tenderness: Yes (right upper quadrant), Peritoneal Signs: No, Distention: No, Hyperactive Bowel sounds: No Skin exam: Rash: No, Edema: No, Normal turgor: Yes Neurologic: Alert and oriented, no deficits. Musculoskeletal: Unremarkable. ED Course Vital Signs 01/12/19 15:02 Temperature 98.8 F Pulse Rate 89 Respiratory 20 Rate Blood Pressure 164/89 O2 Sat by Pulse 99 Oximetry ED Medical Decision Making - Lab Data Result diagrams: 01/12/19 15:08 01/12/19 15:08 Lab Results 01/12/19 01/12/19 01/12/19 Range/Units 15:08 15:08 15:08 WBC 9.2 (4.5-11.0) K/mm3 RBC 4.18 (3.65-5.03) M/mm3 Hgb 12.1 (10.1-14.3) gm/dl Hct 36.9 (30.3-42.9) % MCV 89 (79-97) fl MCH 29 (28-32) pg MCHC 33 (30-34) % RDW 14.8 (13.2-15.2) % Plt Count 254 (140-440) K/mm3 Lymph % (Auto) 14.7 (13.4-35.0) % Glenn % (Auto) 3.5 (0.0-7.3) % Eos % (Auto) 0.9 (0.0-4.3) % Baso % (Auto) 0.9 (0.0-1.8) % Lymph # 1.4 (1.2-5.4) K/mm3 Glenn # 0.3 (0.0-0.8) K/mm3 Eos # 0.1 (0.0-0.4) K/mm3 Baso # 0.1 (0.0-0.1) K/mm3 Seg Neutrophils % 80.0 H (40.0-70.0) % Seg Neutrophils # 7.4 (1.8-7.7) K/mm3 Sodium 131 L (137-145) mmol/L Potassium 4.3 (3.6-5.0) mmol/L Chloride 96.9 L (98-107) mmol/L Carbon Dioxide 25 (22-30) mmol/L Anion Gap 13 mmol/L BUN 10 (7-17) mg/dL Creatinine 0.8 (0.7-1.2) mg/dL Estimated GFR > 60 ml/min BUN/Creatinine Ratio 13 % Glucose 431 H (65-100) mg/dL Calcium 9.1 (8.4-10.2) mg/dL Total Bilirubin 0.20 (0.1-1.2) mg/dL Direct Bilirubin < 0.2 (0-0.2) mg/dL Indirect Bilirubin 0.0 mg/dL AST 17 (5-40) units/L ALT 15 (7-56) units/L Alkaline Phosphatase 105 (35-129) units/L Total Protein 6.8 (6.3-8.2) g/dL Albumin 3.5 L (3.9-5) g/dL Albumin/Globulin Ratio 1.1 % Lipase 34 (13-60) units/L HCG, Qual Negative (Negative) Urine Color (Yellow) Urine Turbidity (Clear) Urine pH (5.0-7.0) Ur Specific [place] (1.003-1.030) Urine Protein (Negative) mg/dL Urine Glucose (UA) (Negative) mg/dL Urine Ketones (Negative) mg/dL Urine Blood (Negative) Urine Nitrite (Negative) Urine Bilirubin (Negative) Urine Urobilinogen (<2.0) mg/dL Ur Leukocyte Esterase (Negative) Urine WBC (Auto) (0.0-6.0) /HPF Urine RBC (Auto) (0.0-6.0) /HPF U Epithel Cells (Auto) (0-13.0) /HPF Urine Opiates Screen Urine Methadone Screen Ur Barbiturates Screen Ur Phencyclidine Scrn Ur Amphetamines Screen U Benzodiazepines Scrn Urine Cocaine Screen U Marijuana (THC) Screen Drugs of Abuse Note 01/12/19 01/12/19 Range/Units 17:46 21:14 WBC (4.5-11.0) K/mm3 RBC (3.65-5.03) M/mm3 Hgb (10.1-14.3) gm/dl Hct (30.3-42.9) % MCV (79-97) fl MCH (28-32) pg MCHC (30-34) % RDW (13.2-15.2) % Plt Count (140-440) K/mm3 Lymph % (Auto) (13.4-35.0) % Glenn % (Auto) (0.0-7.3) % Eos % (Auto) (0.0-4.3) % Baso % (Auto) (0.0-1.8) % Lymph # (1.2-5.4) K/mm3 Glenn # (0.0-0.8) K/mm3 Eos # (0.0-0.4) K/mm3 Baso # (0.0-0.1) K/mm3 Seg Neutrophils % (40.0-70.0) % Seg Neutrophils # (1.8-7.7) K/mm3 Sodium (137-145) mmol/L Potassium (3.6-5.0) mmol/L Chloride (98-107) mmol/L Carbon Dioxide (22-30) mmol/L Anion Gap mmol/L BUN (7-17) mg/dL Creatinine (0.7-1.2) mg/dL Estimated GFR ml/min BUN/Creatinine Ratio % Glucose (65-100) mg/dL Calcium (8.4-10.2) mg/dL Total Bilirubin (0.1-1.2) mg/dL Direct Bilirubin (0-0.2) mg/dL Indirect Bilirubin mg/dL AST (5-40) units/L ALT (7-56) units/L Alkaline Phosphatase (35-129) units/L Total Protein (6.3-8.2) g/dL Albumin (3.9-5) g/dL Albumin/Globulin Ratio % Lipase (13-60) units/L HCG, Qual (Negative) Urine Color Colorless (Yellow) Urine Turbidity Clear (Clear) Urine pH 7.0 (5.0-7.0) Ur Specific [place] 1.018 (1.003-1.030) Urine Protein 30 mg/dl (Negative) mg/dL Urine Glucose (UA) >=500 (Negative) mg/dL Urine Ketones Neg (Negative) mg/dL Urine Blood Neg (Negative) Urine Nitrite Neg (Negative) Urine Bilirubin Neg (Negative) Urine Urobilinogen < 2.0 (<2.0) mg/dL Ur Leukocyte Esterase Neg (Negative) Urine WBC (Auto) 1.0 (0.0-6.0) /HPF Urine RBC (Auto) 2.0 (0.0-6.0) /HPF U Epithel Cells (Auto) 1.0 (0-13.0) /HPF Urine Opiates Screen Presumptive negative Urine Methadone Screen Presumptive negative Ur Barbiturates Screen Presumptive negative Ur Phencyclidine Scrn Presumptive negative Ur Amphetamines Screen Presumptive negative U Benzodiazepines Scrn Presumptive negative Urine Cocaine Screen Presumptive negative U Marijuana (THC) Screen Presumptive negative Drugs of Abuse Note Disclamer - EKG Data -: No EKG Interpreted by Me (EKG interpreted by attending) EKG shows normal: sinus rhythm - Radiology Data Radiology results: report reviewed PROCEDURE: CT ABDOMEN PELVIS W CON TECHNIQUE: Multiple sequential axial CT images of abdomen and pelvis were obtained with IV contrast. Oral contrast was not given. HISTORY: RUQ tenderness COMPARISONS: FINDINGS: Liver, spleen, pancreas and adrenal glands are within normal limits. Bilateral kidneys demonstrate normal enhancement without hydronephrosis. Urinary bladder is normally filled with normal outlines. The aorta is of normal caliber. There is no free fluid or free air. Status post cholecystectomy. Small bowel loops are within normal limits. Moderate degree of residual stool is noted. Appendix is not distinctly visualized most likely secondary to prior appendectomy. Vertebral height is normal. IMPRESSION: Moderate degree residual stool. Otherwise no acute intra-abdominal or pelvic pathology.. - Medical Decision Making This is a 38 y.o. female that presents with abdominal pain, nausea, vomiting, diarrhea for 4 days. Patient examined by me. Vitals stable. Obtained labs and CT of the abdomen. CT dictated by radiologist and report reviewed by myself. Moderate degree residual stool. Otherwise no acute intra-abdominal or pelvic pathology. IV site obtained. Given normal saline, Zofran, Benadryl, morphine, and [place]. Glucose elevated. Given Regular Insulin 5 units IV. Reevaluated glucose 303. Given regular insulin 2 units IV. Pending reevaluation prior to discharge. Gastroparesis. Start promethazine, Zofran, and Tylenol. IV removed by nurse. The nurse states patient walked out of the emergency room and says sh e could not wait any longer. Patient left AGAINST MEDICAL ADVICE. Critical care attestation.: If time is entered above; I have spent that time in minutes in the direct care of this critically ill patient, excluding procedure time. ED Disposition Clinical Impression: Left against medical advice Disposition: LEFT AGAINST MED ADVICE Is pt being admited?: No Does the pt Need Aspirin: No Condition: Stable Prescriptions: Promethazine [Phenergan TAB] 25 mg PO Q8HR PRN #20 tab PRN Reason: Nausea Acetaminophen [Tylenol Arthritis] 650 mg PO BID PRN #15 tablet.er PRN Reason: Pain , Severe (7-10) Ondansetron [Zofran Odt] 4 mg PO Q8HR PRN #20 tab.rapdis PRN Reason: Nausea And Vomiting Time of Disposition: 22:38
[2019-01-12] MEDS ORDERED: MORPHINE IV ONE ×2 (17:41→19:17)
[2019-01-12] MEDS ORDERED: BENADRYL ONE (18:25)
[2019-01-12 18:36] LABS: Bilirubin,Urine NEG (Negative); Blood,Urine NEG (Negative); Color,Urine Colorless (Yellow); Urobilinogen,Urine < 2.0 mg/dL (<2.0)
[2019-01-12] MEDS ORDERED: BENADRYL IV ONE (18:56)
[2019-01-12] MEDS ORDERED: HumuLIN R IV ONE ×2 (21:35→22:58)
[2019-01-12 21:38] LABS: Amphetamine Screen,Urine PRESUMPTIVE NEGATIVE; Benzodiazepines Screen,Urine PRESUMPTIVE NEGATIVE; Cannabinoid Screen,Urine PRESUMPTIVE NEGATIVE; Cocaine Screen,Urine PRESUMPTIVE NEGATIVE; Methadone Screen,Urine PRESUMPTIVE NEGATIVE; Opiate Screen,Urine PRESUMPTIVE NEGATIVE
--- NOTE | 2019-01-12 21:57 | Cat Scan Report ---
PROCEDURE: CT ABDOMEN PELVIS W CON TECHNIQUE: Multiple sequential axial CT images of abdomen and pelvis were obtained with IV contrast. Oral contrast was not given. HISTORY: RUQ tenderness COMPARISONS: FINDINGS: Liver, spleen, pancreas and adrenal glands are within normal limits. Bilateral kidneys demonstrate no rmal enhancement without hydronephrosis. Urinary bladder is normally filled with normal outlines. The aorta is of normal caliber. There is no free fluid or free air. Status post cholecystectomy. Small b owel loops are within normal limits. Moderate degree of residual stool is noted. Appendix is not dist inctly visualized most likely secondary to prior appendectomy. Vertebral height is normal. IMPRESSION: Moderate degree residual stool. Otherwise no acute intra-abdominal or pelvic pathology.. This document is electronically signed by Frantz Colon MD., January 12 2019 09:55:08 PM ET
[2019-01-12] MEDS ORDERED: NORCO 5/325 PO ONE (22:58)
[2019-01-12 23:11] VITALS: BP 136/94
== END 2019-01-12 23:30 | disposition left against medical advice (07) ==
LOC: ED 14:39
DX: R11.2 Nausea with vomiting, unspecified (principal); R19.7 Diarrhea, unspecified; R07.89 Other chest pain; R10.84 Generalized abdominal pain; I10 Essential (primary) hypertension; E11.9 Type 2 diabetes mellitus without complications; J45.909 Unspecified asthma, uncomplicated; Z90.49 Acquired absence of other specified parts of digestive tract; Z98.51 Tubal ligation status; Z79.4 Long term (current) use of insulin; Z88.1 Allergy status to other antibiotic agents; Z88.5 Allergy status to narcotic agent; Z88.8 Allergy status to other drugs, medicaments and biological substances
CPT/HCPCS: 36415; 74177; 80048; 80076; 80307; 81001; 82962; 83690; 84703; 85025; 93005; 93010; 96361; 96374; 96375; 96376; 99284; J1200; J2270; J2405; J7030; Q9967; J1815

== ENCOUNTER 2020-01-29 22:10 | Emergency (ER) | payer MEDICAID ==
[2020-01-29 23:03] LABS: Basophils # (Auto) 0.1 K/mm3 (0.0-0.1); Eosinophils # (Auto) 0.1 K/mm3 (0.0-0.4); Eosinophils % (Auto) 0.9 % (0.0-4.3); Hematocrit 40.7 % (30.3-42.9); Hemoglobin 13.7 gm/dl (10.1-14.3); Lymphocytes % (Auto) 32.2 % (13.4-35.0); Mean Corpuscular HGB Conc 34 % (30-34); Mean Corpuscular Volume 87 fl (79-97); Monocytes # (Auto) 0.4 K/mm3 (0.0-0.8); Monocytes % (Auto) 4.2 % (0.0-7.3); Platelet Count 249 K/mm3 (140-440); Red Blood Count 4.66 M/mm3 (3.65-5.03)
[2020-01-29 23:23] LABS: BUN/Creatinine Ratio 25; Blood Urea Nitrogen 20 mg/dL (7-17); Hemolysis Index 6
--- NOTE | 2020-01-30 00:13 | Emergency Department Report ---
ED Chest Pain HPI - General Chief Complaint: Chest Pain Stated Complaint: ABD PAIN/VOMITING/CP Time Seen by Provider: 01/30/20 00:05 Source: patient, family Mode of arrival: Ambulatory Limitations: No Limitations - History of Present Illness Initial Comments: This is a 39-year-old female here report that she is having chest pain, abdominal pain and nausea and vomiting. Patient reported that her chest pain was on the left but to me she said it is midsternal area and this is been going on for 3 days. Patient has a history of chronic abdominal pain and she has been here several times for gastroparesis due to diabetes. She reports that she is having nausea and vomiting. Denies any vaginal bleeding or discharge. Pain is 10/10 achy and cramping. No radiation of pain. No medication taken per patient prior to coming to the emergency room. Pain is intermittent. Denies any shortness of breath, fever no chills, upper respiratory symptoms. Denies any diarrhea. Patient does have a primary care physician and she says she was in the process of setting up to see executive kitchen manager with her primary care physician but pain started back 3 days ago and just not getting better. MD Complaint: chest pain Onset/Timin -: days(s) Onset: during rest Pain Location: substernal Pain Radiation: none Severity: severe Severity scale (0 -10): 10 Quality: aching, sharp Consistency: intermittent Improves With: nothing Worsens With: nothing re: nausea, vomting, other (Abdominal pain). denies: diaphoresis, dyspnea, sense of impending doom Other Symptoms: denies: cough, fever, syncope, rash, acid taste in mouth, leg swelling, palpitations, burping, other Treatments Prior to Arrival: none Aspirin use within the Past 7 Days: (0) No - Related Data On Oral Contraceptives: No Home Medications Medication Instructions Recorded Confirmed Last Taken Insulin Glargine [Lantus VIAL] 20 unit SUB-Q QHS 01/18/17 02/21/18 02/20/18 Previous Rx's Medication Instructions Recorded Last Taken Type Insulin Aspart Prot/Aspart(Nf) 15 units SQ AC #7 units 02/23/18 Unknown Rx [NovoLOG Mix 70/30 VIAL] Famotidine [Pepcid] 20 mg PO BID #20 tablet 03/28/18 Unknown Rx amLODIPine 5 mg PO DAILY #60 tab 10/19/18 Unknown Rx metFORMIN [Glucophage] 500 mg PO BID #60 tablet 10/19/18 Unknown Rx Acetaminophen [Tylenol Arthritis] 650 mg PO BID PRN #15 tablet.er 01/12/19 Unkno wn Rx Ondansetron [Zofran Odt] 4 mg PO Q8HR PRN #20 tab.rapdis 01/12/19 Unknown Rx Promethazine [Phenergan TAB] 25 mg PO Q8HR PRN #20 tab 01/12/19 Unknown Rx Ondansetron [Zofran Odt] 4 mg PO Q8HR PRN #20 tab.rapdis 02/23/19 Unknown Rx Promethazine [Phenergan TAB] 25 mg PO Q6HR PRN #20 tab 02/23/19 Unknown Rx Famotidine [Pepcid] 20 mg PO BID 6 Days #12 tablet 01/30/20 Unknown Rx Nitrofurantoin [place]/M-Cryst 100 mg PO Q12HR 7 Days #14 capsule 01/30/20 Unknown Rx [Macrobid CAP] Promethazine [Phenergan TAB] 25 mg PO Q6HR PRN #16 tab 01/30/20 Unknown Rx bisacodyL [Dulcolax] 10 mg PO DAILY PRN 2 Days #4 tab 01/30/20 Unknown Rx hydrOXYzine HCL [Atarax] 25 mg PO Q6HR PRN #12 tablet 01/30/20 Unknown Rx traMADoL [Ultram] 50 mg PO Q6HR PRN #12 tablet 01/30/20 Unknown Rx Allergies Allergy/AdvReac Type Severity Reaction Status Date / Time fentanyl Allergy Itching Verified 03/28/18 08:16 ketorolac tromethamine Allergy Shortness Verified 11/03/17 21:01 [From Toradol] of Breath dicyclomine HCl [From Bentyl] AdvReac Hives Verified 11/03/17 21:01 metoclopramide [From Reglan] AdvReac Unknown Verified 03/28/18 10:29 Heart Score - HEART Score History: Slightly suspicious EKG: Normal Age: < 45 Risk factors: 1-2 risk factors Troponin: < normal limit HEART Score: 1 - Critical Actions Critical Actions: 0-3 pts:0.9-1.7%risk of adverse cardiac event.Candidate for discharge ED Review of Systems ROS: Stated complaint: ABD PAIN/VOMITING/CP Other details as noted in HPI Constitutional: denies: chills, fever Eyes: denies: eye discharge ENT: denies: ear pain, throat pain, congestion Respiratory: denies: cough, shortness of breath, SOB with exertion, SOB at rest, stridor, wheezing Cardiovascular: chest pain. denies: palpitations, dyspnea on exertion, edema, syncope Gastrointestinal: abdominal pain, nausea, vomiting. denies: diarrhea, constipation, hematemesis, melena, hematochezia Musculoskeletal: denies: back pain, joint swelling, arthralgia, myalgia Skin: denies: rash Neurological: denies: headache, numbness, paresthesias, abnormal gait, vertigo ED Past Medical Hx - Past Medical History Previous Medical History?: Yes Hx Hypertension: Yes (?) Hx CVA: No Hx Heart Attack/AMI: No Hx Congestive Heart Failure: No Hx Diabetes: Yes Hx Deep Vein Thrombosis: No Hx Pulmonary Embolism: No Hx GERD: No Hx Liver Disease: No Hx Renal Disease: No Hx Sickle Cell Disease: No Hx Arthritis: No Hx Headaches / Migraines: No Hx Seizures: No Hx Kidney Stones: No Hx Psychiatric Treatment: No Hx Asthma: Yes Hx COPD: No Hx Tuberculosis: No Hx Dementia: No Hx HIV: No Additional medical history: gastroparesis (no official dx) - Surgical History Past Surgical History?: Yes Hx Coronary Stent: No Hx Open Heart Surgery: No Hx Pacemaker: No Hx Internal Defibrillator: No Hx Cholecystectomy: Yes Hx Appendectomy: Yes Hx Breast Surgery: No Additional Surgical History: tubal ligation. x 2 - Family History Family history: diabetes, hypertension - Social History Smoking Status: Never Smoker Substance Use Type: None - Medications Home Medications: Home Medications Medication Instructions Recorded Confirmed Last Taken Type Insulin Glargine [Lantus VIAL] 20 unit SUB-Q QHS 01/18/17 02/21/18 02/20/18 History Insulin Aspart Prot/Aspart(Nf) 15 units SQ AC #7 units 02/23/18 Unknown Rx [NovoLOG Mix 70/30 VIAL] Famotidine [Pepcid] 20 mg PO BID #20 tablet 03/28/18 Unknown Rx amLODIPine 5 mg PO DAILY #60 tab 10/19/18 Unknown Rx metFORMIN [Glucophage] 500 mg PO BID #60 tablet 10/19/18 Unknown Rx Acetaminophen [Tylenol Arthritis] 650 mg PO BID PRN #15 tablet.er 01/12/19 Unknown Rx Ondansetron [Zofran Odt] 4 mg PO Q8HR PRN #20 tab.rapdis 01/12/19 Unknown Rx Promethazine [Phenergan TAB] 25 mg PO Q8HR PRN #20 tab 01/12/19 Unknown Rx Ondansetron [Zofran Odt] 4 mg PO Q8HR PRN #20 tab.rapdis 02/23/19 Unknown Rx Promethazine [Phenergan TAB] 25 mg PO Q6HR PRN #20 tab 02/23/19 Unknown Rx Famotidine [Pepcid] 20 mg PO BID 6 Days #12 tablet 01/30/20 Unknown Rx Nitrofurantoin [place]/M-Cryst 100 mg PO Q12HR 7 Days #14 capsule 01/30/20 Unknown Rx [Macrobid CAP] Promethazine [Phenergan TAB] 25 mg PO Q6HR PRN #16 tab 01/30/20 Unknown Rx bisacodyL [Dulcolax] 10 mg PO DAILY PRN 2 Days #4 tab 01/30/20 Unknown Rx hydrOXYzine HCL [Atarax] 25 mg PO Q6HR PRN #12 tablet 01/30/20 Unknown Rx traMADoL [Ultram] 50 mg PO Q6HR PRN #12 tablet 01/30/20 Unknown Rx ED Physical Exam - General Limitations: No Limitations General appearance: alert, in no apparent distress - Head Head exam: Present: atraumatic, normocephalic - Eye Eye exam: Present: normal appearance, PERRL, EOMI Pupils: Present: normal accommodation - ENT ENT exam: Present: normal exam, normal orophraynx, mucous membranes moist, TM's normal bilaterally, normal external ear exam - Neck Neck exam: Present: normal inspection, full ROM. Absent: tenderness, lymphadenopathy - Respiratory Respiratory exam: Present: normal lung sounds bilaterally. Absent: respiratory distress, wheezes, rales, rhonchi, stridor, chest wall tenderness, accessory muscle use, decreased breath sounds, prolonged expiratory - Cardiovascular Cardiovascular Exam: Present: regular rate, normal rhythm, normal heart sounds. Absent: systolic murmur, diastolic murmur - GI/Abdominal GI/Abdominal exam: Present: soft, tenderness (Generalized), normal bowel sounds. Absent: distended, guarding, rebound, rigid, organomegaly, mass, bruit, pulsatile mass, hernia - Extremities Exam Extremities exam: Present: normal inspection, full ROM, normal capillary refill, other (No cce. + 2 pulses in all extremities, no neurovascular compromise). Absent: tenderness, pedal edema, joint swelling, calf tenderness - Back Exam Back exam: Present: normal inspection, full ROM, other (Ambulates without any difficulties). Absent: tenderness, CVA tenderness (R), CVA tenderness (L), muscle spasm, paraspinal tenderness, vertebral tenderness, rash noted - Neurological Exam Neurological exam: Present: alert, oriented X3, normal gait - Psychiatric Psychiatric exam: Present: normal affect, normal mood - Skin Skin exam: Present: warm, dry, intact, normal color. Absent: rash ED Course Vital Signs 01/29/20 01/30/20 22:13 06:17 Temperature 98.2 F Pulse Rate 89 87 Respiratory 20 18 Rate Blood Pressure 150/97 142/89 O2 Sat by Pulse 99 100 Oximetry - Reevaluation(s) Reevaluation #1: 01/30/20 0300 Patient received Maalox 30 cc and lidocaine 15 cc along with Zofran 8 mg ODT for stomach pain and nausea. Her nausea has been relieved but she still having some stomach pain. Abdominal exam is better. Reevaluation #2: 01/30/20 04:17 She received morphine 4 mg IM, Pepcid 40 mg p.o. and Zofran ODT which decreased her pain to 2/10. Patient urinary tract infection and she is tolerating p.o. liquids well. She also received Benadryl 50 mg IM to prevent itching. Vital signs are stable and she is afebrile Reevaluation #3: 01/30/20 06:[address] Menezes regarding patient presentation and treatment plan along with lab results, CT scan and chest x-ray result along with EKG report. Initially, he had said if patient pain is not controlled that she will need to be admitted. I spoke with Dr. Meeks and she did not think that patient needs to be admitted and I spoke with Dr. Shaffer again and he agrees and said patient can go home as long as she is tolerating fluid on pain medication to follow-up with executive kitchen manager and her primary care doctor. IV fluid completed. EKG stable and similar to previous EKG BUDDY score - Buddy Score Age > 65: (0) No Aspirin use within the Past 7 Days: (0) No 3 or more CAD Risk Factors: (0) No 2 or more Angina events in past 24 hrs: (0) No Known CAD with more than 50% Stenosis: (0) No Elevated Cardiac Markers: (0) No ST Deviation Greater than 0.5mm: (0) No BUDDY Score: 0 ED Medical Decision Making - Lab Data Result diagrams: 01/29/20 22:43 01/29/20 22:43 Lab Results 01/29/20 01/29/20 01/29/20 Range/Units 22:43 22:43 22:43 WBC 9.2 (4.5-11.0) K/mm3 RBC 4.66 (3.65-5.03) M/mm3 Hgb 13.7 (10.1-14.3) gm/dl Hct 40.7 (30.3-42.9) % MCV 87 (79-97) fl MCH 29 (28-32) pg MCHC 34 (30-34) % RDW 14.0 (13.2-15.2) % Plt Count 249 (140-440) K/mm3 Lymph % (Auto) 32.2 (13.4-35.0) % [place] % (Auto) 4.2 (0.0-7.3) % Eos % (Auto) 0.9 (0.0-4.3) % Baso % (Auto) 1.0 (0.0-1.8) % Lymph # 3.0 (1.2-5.4) K/mm3 [place] # 0.4 (0.0-0.8) K/mm3 Eos # 0.1 (0.0-0.4) K/mm3 Baso # 0.1 (0.0-0.1) K/mm3 Seg Neutrophils % 61.7 (40.0-70.0) % Seg Neutrophils # 5.7 (1.8-7.7) K/mm3 Sodium 136 L (137-145) mmol/L Potassium 4.0 (3.6-5.0) mmol/L Chloride 95.2 L (98-107) mmol/L Carbon Dioxide 26 (22-30) mmol/L Anion Gap 19 mmol/L BUN 20 H (7-17) mg/dL Creatinine 0.8 (0.7-1.2) mg/dL Estimated GFR > 60 ml/min BUN/Creatinine Ratio 25 % Glucose 238 H (65-100) mg/dL Calcium 10.0 (8.4-10.2) mg/dL Troponin T < 0.010 (0.00-0.029) ng/mL HCG, Qual Negative (Negative) Urine Color (Yellow) Urine Turbidity (Clear) Urine pH (5.0-7.0) Ur Specific [place] (1.003-1.030) Urine Protein (Negative) mg/dL Urine Glucose (UA) (Negative) mg/dL Urine Ketones (Negative) mg/dL Urine Blood (Negative) Urine Nitrite (Negative) Urine Bilirubin (Negative) Urine Urobilinogen (<2.0) mg/dL Ur Leukocyte Esterase (Negative) Urine WBC (Auto) (0.0-6.0) /HPF Urine RBC (Auto) (0.0-6.0) /HPF U Epithel Cells (Auto) (0-13.0) /HPF Urine Bacteria (Auto) (Negative) /HPF Urine Mucus /HPF Urine HCG, Qual (Negative) 01/30/20 Range/Units 00:13 WBC (4.5-11.0) K/mm3 RBC (3.65-5.03) M/mm3 Hgb (10.1-14.3) gm/dl Hct (30.3-42.9) % MCV (79-97) fl MCH (28-32) pg MCHC (30-34) % RDW (13.2-15.2) % Plt Count (140-440) K/mm3 Lymph % (Auto) (13.4-35.0) % [place] % (Auto) (0.0-7.3) % Eos % (Auto) (0.0-4.3) % Baso % (Auto) (0.0-1.8) % Lymph # (1.2-5.4) K/mm3 [place] # (0.0-0.8) K/mm3 Eos # (0.0-0.4) K/mm3 Baso # (0.0-0.1) K/mm3 Seg Neutrophils % (40.0-70.0) % Seg Neutrophils # (1.8-7.7) K/mm3 Sodium (137-145) mmol/L Potassium (3.6-5.0) mmol/L Chloride (98-107) mmol/L Carbon Dioxide (22-30) mmol/L Anion Gap mmol/L BUN (7-17) mg/dL Creatinine (0.7-1.2) mg/dL Estimated GFR ml/min BUN/Creatinine Ratio % Glucose (65-100) mg/dL Calcium (8.4-10.2) mg/dL Troponin T (0.00-0.029) ng/mL HCG, Qual (Negative) Urine Color Yellow (Yellow) Urine Turbidity Clear (Clear) Urine pH 5.0 (5.0-7.0) Ur Specific [place] 1.020 (1.003-1.030) Urine Protein 100 mg/dl (Negative) mg/dL Urine Glucose (UA) >=500 (Negative) mg/dL Urine Ketones Neg (Negative) mg/dL Urine Blood Sm (Negative) Urine Nitrite Neg (Negative) Urine Bilirubin Neg (Negative) Urine Urobilinogen < 2.0 (<2.0) mg/dL Ur Leukocyte Esterase Mod (Negative) Urine WBC (Auto) 11.0 H (0.0-6.0) /HPF Urine RBC (Auto) 3.0 (0.0-6.0) /HPF U Epithel Cells (Auto) 2.0 (0-13.0) /HPF Urine Bacteria (Auto) 1+ (Negative) /HPF Urine Mucus Few /HPF Urine HCG, Qual Negative (Negative) Urine culture sent - EKG Data -: EKG Interpreted by Me (Attending physician) EKG shows normal: sinus rhythm - EKG Data When compared to previous EKG there are: no significant change - Radiology Data Radiology results: report reviewed CT scan of the abdomen pelvis with IV contrast and chest x-ray dictated by radiologist and report reviewed by myself. Please see details below Findings [facility] [address] [place] [address] Cat Scan Report Signed Patient: BHUMI LUNA MR#: [id number] : 1980 Acct:[id number] Age/Sex: 39 / F ADM Date: 01/29/20 Loc: ED Attending Dr: Ordering Physician: RACHEL HAYES Date of Service: 01/30/20 Procedure(s): CT abdomen pelvis w con Accession Number(s): [id number] cc: RACHEL HAYES CT OF THE ABDOMEN AND PELVIS WITH INTRAVENOUS CONTRAST INDICATION / CLINICAL INFORMATION: Abdominal pain with nausea and vomiting. TECHNIQUE: The patient received 100 cc Omnipaque [address] scans at this location are performed using CT dose reduction for ALARA by means of automated exposure control. COMPARISON: 01/12/19. FINDINGS: ABDOMEN: The gallbladder is surgically absent. The liver, spleen, bile ducts, pancreas, adrenal glands, kidneys and bowel demonstrate no significant abnormality. There is a moderate amount of stool throughout the colon. No adenopathy is seen. The lung bases are clear. PELVIS: The distal ureters and urinary bladder are normal. The uterus and ovaries are unremarkable. The appendix is surgically absent. There is no evidence of diverticulitis. No abnormal mass or fluid collection is seen. The bones are normal. IMPRESSION: No acute abnormality. Signer Name: Wellington Marcano MD Signed: 01/30/2020 5:33 AM Workstation Name: [id number] Transcribed By: RT Dictated By: Wellington Marcano MD Electronically Authenticated By: Wellington Marcano MD Signed Date/Time: 01/30/20 0533 DD/ TD/TT: INDICATION / CLINICAL INFORMATION: Chest Pain. COMPARISON: 10/19/18. FINDINGS: SUPPORT DEVICES: None. HEART / MEDIASTINUM: The heart size and pulmonary vasculature are normal. The aorta is normal in caliber. LUNGS / PLEURA: No significant pulmonary or pleural abnormality. No pneumothorax. ADDITIONAL FINDINGS: No significant additional findings. IMPRESSION: No acute abnormality or significant change. Signer Name: Wellington Marcano MD Signed: 01/30/2020 12:15 AM Workstation Name: [id number] Transcribed By: RT Dictated By: Wellington Marcano MD Electronically Authenticated By: Wellington Marcano MD Signed Date/Time: 01/30/20 0015 DD/ TD/TT: - Medical Decision Making This is a 39-year-old female with chronic abdominal pain reports that this is been going on for 3 days and report that she is having substernal chest pain. Patient had lab work which shows no significant abnormalities to include CBC, chemistry. Troponin is negative. Urinalysis positive for urinary tract infection and culture sent. test is negative. EKG with no significant changes from the previous EKG. CT scan of the abdomen pelvis with IV contrast showed no acute abnormalities but moderate stool in colon which she had in the past. Chest x-ray dictated by radiologist and report reviewed by myself and no acute findings. Patient had 1 L of normal saline emergency room, she received Zofran, Phenergan for nausea which helped her nausea. She received morphine x2 doses along with Benadryl in emergency room for pain which brought her pain from 10 down to 6. I spoke with Dr. Omari banuelos who is the ED attending and hospitalist and they both agree that patient can be discharged home as long as she is tolerating fluids which she has on pain medication, nausea medication and to follow-up with primary care, executive kitchen manager and dynamite reclaimer. Patient instructed on diagnosis, radiology reports and lab reports and that she needs to follow-up with multiple specialties to start with her primary care physician or to return to the emergency room if her symptoms are worsened. Discharged home with prescription for tramadol, Phenergan, Pepcid and Macrobid. Vital signs stable she is afebrile and nontoxic in appearance - Differential Diagnosis ACS, PNA, HCG ectopic, colitis, enteritis, pelvic DZ, ANTONY,UTI, gastroparesis Critical care attestation.: If time is entered above; I have spent that time in minutes in the direct care of this critically ill patient, excluding procedure time. ED Disposition Clinical Impression: Atypical chest pain, Acute cystitis with hematuria Abdominal pain Qualifiers: Abdominal location: generalized Qualified Code(s): R10.84 - Generalized abdominal pain Nausea and vomiting Qualifiers: Vomiting type: unspecified Vomiting Intractability: non-intractable Qualified Code(s): R11.2 - Nausea with vomiting, unspecified Disposition: - TO HOME OR SELFCARE Is pt being admited?: No Does the pt Need Aspirin: No Condition: Stable Instructions: Chest Pain (ED), Urinary Tract Infection in Women (ED), High Fiber Diet (ED), Constipation (ED), Abdominal Pain (ED), Acute Nausea and Vomiting (ED) Additional Instructions: Please follow-up with dynamite reclaimer, primary care doctor and executive kitchen manager as instructed You have chronic abdominal pain which is probably a result of your chronic diabetes and you will need to follow-up with a executive kitchen manager. Please see all referrals on discharge instruction paperwork Take antibiotic for urinary tract infection Take Ultram for pain and Phenergan for nausea but please do not drive or operate heavy machinery while taking this medications as is cause drowsiness Take Atarax for itching Take Pepcid for your stomach. If your condition worsens, return to the emergency room Prescriptions: hydrOXYzine HCL [Atarax] 25 mg PO Q6HR PRN #12 tablet PRN Reason: Itching bisacodyL [Dulcolax] 10 mg PO DAILY PRN 2 Days #4 tab PRN Reason: Constipation Nitrofurantoin [place]/M-Cryst [Macrobid CAP] 100 mg PO Q12HR 7 Days #14 capsule Famotidine [Pepcid] 20 mg PO BID 6 Days #12 tablet Promethazine [Phenergan TAB] 25 mg PO Q6HR PRN #16 tab PRN Reason: Nausea traMADoL [Ultram] 50 mg PO Q6HR PRN #12 tablet PRN Reason: Pain [facility] [Primary Care Provider] - 02/01/20 YULIANA ALVAREZ MD [Staff Physician] - 2-3 Days [facility] [Provider Group] - 2-3 Days
--- NOTE | 2020-01-30 00:19 | XRay Report ---
CHEST 1 VIEW 12:02 AM INDICATION / CLINICAL INFORMATION: Chest Pain. COMPARISON: 10/19/18. FINDINGS: SUPPORT DEVICES: None. HEART / MEDIASTINUM: The heart size and pulmonary vasculature are normal. The aorta is normal in [place]. LUNGS / PLEURA: No significant pulmonary or pleural abnormality. No pneumothorax. ADDITIONAL FINDINGS: No significant additional findings. IMPRESSION: No acute abnormality or significant change. Signer Name: Wellington Marcano MD Signed: 01/30/2020 12:15 AM Workstation Name: [id number]
[2020-01-30] MEDS ORDERED: LIDOCAINE VISCOUS 2% 15 ML ORAL LIQD PO ONE (00:43)
[2020-01-30] MEDS ORDERED: ONDANSETRON 4 MG ODT TAB PO ONE ×2 (00:43→02:41)
[2020-01-30] MEDS ORDERED: ALUM-MAG HYDROXIDE-SIMETHICONE 200-200-20MG/5ML ORAL LIQD 30 ML PO ONE (00:43)
[2020-01-30] MEDS ORDERED: MORPHINE 4 MG/1 ML INJ IM ONE ×2 (02:41→04:30)
[2020-01-30] MEDS ORDERED: FAMOTIDINE 20 MG TAB PO ONE (02:42)
[2020-01-30] MEDS ORDERED: diphenhydrAMINE 25 MG CAP PO ONE ×2 (03:07→03:10)
[2020-01-30 03:51] LABS: Bacteria,Urine 1+ /HPF (Negative); Bilirubin,Urine NEG (Negative); Blood,Urine SM (Negative); Color,Urine Yellow (Yellow); Mucus,Urine FEW /HPF; Urobilinogen,Urine < 2.0 mg/dL (<2.0)
[2020-01-30 03:52] LABS: HCG Qualitative,Urine Negative (Negative)
[2020-01-30] MEDS ORDERED: SODIUM CHLORIDE 0.9% 1000 ML 1,000 ML IV ONE (04:30)
[2020-01-30] MEDS ORDERED: PROMETHAZINE 25 MG TAB PO ONE (04:30)
[2020-01-30] MEDS ORDERED: MORPHINE 4 MG/1 ML INJ IV ONE (04:37)
--- NOTE | 2020-01-30 05:37 | Cat Scan Report ---
CT OF THE ABDOMEN AND PELVIS WITH INTRAVENOUS CONTRAST INDICATION / CLINICAL INFORMATION: Abdominal pain with nausea and vomiting. TECHNIQUE: The patient received 100 cc Omnipaque [address] scans at this location are performed using CT dose reduction for ALARA by means of automated exposure control. COMPARISON: 01/12/19. FINDINGS: ABDOMEN: The gallbladder is surgically absent. The liver, spleen, bile ducts, pancreas, adrenal gland s, kidneys and bowel demonstrate no significant abnormality. There is a moderate amount of stool thro ughout the colon. No adenopathy is seen. The lung bases are clear. PELVIS: The distal ureters and urinary bladder are normal. The uterus and ovaries are unremarkable. T he appendix is surgically absent. There is no evidence of diverticulitis. No abnormal mass or fluid c ollection is seen. The bones are normal. IMPRESSION: No acute abnormality. Signer Name: Wellington Marcano MD Signed: 01/30/2020 5:33 AM Workstation Name: [id number]
[2020-01-30 06:22] VITALS: BP 142/89
== END 2020-01-30 07:00 | disposition home or self-care (01) ==
LOC: ED 22:10
DX: R07.89 Other chest pain (principal); N30.01 Acute cystitis with hematuria; R10.9 Unspecified abdominal pain; R11.2 Nausea with vomiting, unspecified; I10 Essential (primary) hypertension; E11.9 Type 2 diabetes mellitus without complications; J45.909 Unspecified asthma, uncomplicated; Z90.49 Acquired absence of other specified parts of digestive tract; Z98.51 Tubal ligation status; Z79.899 Other long term (current) drug therapy
CPT/HCPCS: 36415; 71045; 74177; 80048; 81001; 81025; 83690; 84484; 84703; 85025; 87086; 93005; 93010; 96361; 96372; 96374; 99284; J2270; J7030; Q0169; Q9967; Q0162

== ENCOUNTER 2020-03-27 18:02 | Emergency (ER) | payer MEDICARE ==
[2020-03-27 18:33] LABS: Hemoglobin 14.3 gm/dl (10.1-14.3); Mean Corpuscular HGB Conc 33 % (30-34); Mean Corpuscular Volume 90 fl (79-97); Platelet Count 261 K/mm3 (140-440); Red Blood Count 4.89 M/mm3 (3.65-5.03); Red Cell Distribution Width 14.5 % (13.2-15.2)
[2020-03-27 18:41] LABS: Alanine Aminotransferase 39 units/L (7-56); Albumin 4.2 g/dL (3.9-5); BUN/Creatinine Ratio 26; Blood Urea Nitrogen 31 mg/dL (7-17); Calcium 9.6 mg/dL (8.4-10.2); Hemolysis Index 18
[2020-03-27 19:17] LABS: Basophils % (Manual) 0 % (0.0-1.8); Eosinophils % (Manual) 0 % (0.0-4.3); RBC Morphology Normal; Total Cells Counted 100
[2020-03-27] MEDS ORDERED: SODIUM CHLORIDE 0.9% 1000 ML 1,000 ML IV ONE (20:21)
[2020-03-27] MEDS ORDERED: ONDANSETRON 4 MG/2 ML INJ IV ONE (20:21)
[2020-03-27] MEDS ORDERED: MORPHINE 4 MG/1 ML INJ IV ONE (20:21)
--- NOTE | 2020-03-27 20:32 | Emergency Department Report ---
ED Abdominal Pain HPI - General Chief Complaint: Abdominal Pain Stated Complaint: ABD PAIN Time Seen by Provider: 03/27/20 20:15 Source: patient Mode of arrival: Ambulatory Limitations: No Limitations - History of Present Illness Initial Comments: Patient is a 39-year-old female presents emergency room with complaints of lower abdominal pain for 5 days. She has associated nausea, vomiting, diarrhea. She denies any fever, urinary symptoms, hematochezia, hematemesis, melena, dysuria. She has a past medical history of DM and asthma. She has a past abdominal surgical history of appendectomy, cholecystectomy, , tubal ligation. She states her last menstrual cycle was 14 years ago. She has an allergy to fentanyl, Toradol, Bentyl, Reglan. - Related Data Home Medications Medication Instructions Recorded Confirmed Last Taken Insulin Glargine [Lantus VIAL] 20 unit SUB-Q QHS 01/18/17 02/21/18 02/20/18 Previous Rx's Medication Instructions Recorded Last Taken Type Insulin Aspart Prot/Aspart(Nf) 15 units SQ AC #7 units 02/23/18 Unknown Rx [NovoLOG Mix 70/30 VIAL] Famotidine [Pepcid] 20 mg PO BID #20 tablet 03/28/18 Unknown Rx amLODIPine 5 mg PO DAILY #60 tab 10/19/18 Unknown Rx metFORMIN [Glucophage] 500 mg PO BID #60 tablet 10/19/18 Unknown Rx Acetaminophen [Tylenol Arthritis] 650 mg PO BID PRN #15 tablet.er 01/12/19 Unknown Rx Ondansetron [Zofran Odt] 4 mg PO Q8HR PRN #20 tab.rapdis 01/12/19 Unknown Rx Promethazine [Phenergan TAB] 25 mg PO Q8HR PRN #20 tab 01/12/19 Unknown Rx Ondansetron [Zofran Odt] 4 mg PO Q8HR PRN #20 tab.rapdis 02/23/19 Unknown Rx Promethazine [Phenergan TAB] 25 mg PO Q6HR PRN #20 tab 02/23/19 Unknown Rx Famotidine [Pepcid] 20 mg PO BID 6 Days #12 tablet 01/30/20 Unknown Rx Nitrofurantoin [place]/M-Cryst 100 mg PO Q12HR 7 Days #14 capsule 01/30/20 Unknown Rx [Macrobid CAP] Promethazine [Phenergan TAB] 25 mg PO Q6HR PRN #16 tab 01/30/20 Unknown Rx bisacodyL [Dulcolax] 10 mg PO DAILY PRN 2 Days #4 tab 01/30/20 Unknown Rx hydrOXYzine HCL [Atarax] 25 mg PO Q6HR PRN #12 tablet 01/30/20 Unknown Rx traMADoL [Ultram] 50 mg PO Q6HR PRN #12 tablet 01/30/20 Unknown Rx Ciprofloxacin HCl [Ciprofloxacin 500 mg PO BID 10 Days #20 tab 03/27/20 Unknown Rx TAB] Promethazine [Phenergan] 25 mg PO Q6HR PRN #10 tab 03/27/20 Unknown Rx metroNIDAZOLE [Flagyl] 500 mg PO BID 10 Days #20 tab 03/27/20 Unknown Rx traMADoL [Ultram 50 MG tab] 50 mg PO Q6HR PRN #10 tablet 03/27/20 Unknown Rx Ondansetron [Zofran Odt] 4 mg PO Q8HR PRN #20 tab.rapdis 03/28/20 Unknown Rx Allergies Allergy/AdvReac Type Severity Reaction Status Date / Time fentanyl Allergy Itching Verified 03/28/18 08:16 ketorolac tromethamine Allergy Shortness Verified 11/03/17 21:01 [From Toradol] of Breath dicyclomine HCl [From Bentyl] AdvReac Hives Verified 11/03/17 21:01 metoclopramide [From Reglan] AdvReac Unknown Verified 03/28/18 10:29 ED Review of Systems ROS: Stated complaint: ABD PAIN Other details as noted in HPI Comment: All other systems reviewed and negative ED Past Medical Hx - Past Medical History Previous Medical History?: Yes Hx Hypertension: Yes (?) Hx CVA: No Hx Heart Attack/AMI: No Hx Congestive Heart Failure: No Hx Diabetes: Yes Hx Deep Vein Thrombosis: No Hx Pulmonary Embolism: No Hx GERD: No Hx Liver Disease: No Hx Renal Disease: No Hx Sickle Cell Disease: No Hx Arthritis: No Hx Headaches / Migraines: No Hx Seizures: No Hx Kidney Stones: No Hx Psychiatric Treatment: No Hx Asthma: Yes Hx COPD: No Hx Tuberculosis: No Hx Dementia: No Hx HIV: No Additional medical history: gastroparesis (no official dx) - Surgical History Past Surgical History?: Yes Hx Coronary Stent: No Hx Open Heart Surgery: No Hx Pacemaker: No Hx Internal Defibrillator: No Hx Cholecystectomy: Yes Hx Appendectomy: Yes Hx Breast Surgery: No Additional Surgical History: tubal ligation. x 2 - Social History Smoking Status: Never Smoker Substance Use Type: Alcohol, Prescribed - Medications Home Medications: Home Medications Medication Instructions Recorded Confirmed Last Taken Type Insulin Glargine [Lantus VIAL] 20 unit SUB-Q QHS 01/18/17 02/21/18 02/20/18 History Insulin Aspart Prot/Aspart(Nf) 15 units SQ AC #7 units 02/23/18 Unknown Rx [NovoLOG Mix 70/30 VIAL] Famotidine [Pepcid] 20 mg PO BID #20 tablet 03/28/18 Unknown Rx amLODIPine 5 mg PO DAILY #60 tab 10/19/18 Unknown Rx metFORMIN [Glucophage] 500 mg PO BID #60 tablet 10/19/18 Unknown Rx Acetaminophen [Tylenol Arthritis] 650 mg PO BID PRN #15 tablet.er 01/12/19 Unknown Rx Ondansetron [Zofran Odt] 4 mg PO Q8HR PRN #20 tab.rapdis 01/12/19 Unknown Rx Promethazine [Phenergan TAB] 25 mg PO Q8HR PRN #20 tab 01/12/19 Unknown Rx Ondansetron [Zofran Odt] 4 mg PO Q8HR PRN #20 tab.rapdis 02/23/19 Unknown Rx Promethazine [Phenergan TAB] 25 mg PO Q6HR PRN #20 tab 02/23/19 Unknown Rx Famotidine [Pepcid] 20 mg PO BID 6 Days #12 tablet 01/30/20 Unknown Rx Nitrofurantoin [place]/M-Cryst 100 mg PO Q12HR 7 Days #14 capsule 01/30/20 Unknown Rx [Macrobid CAP] Promethazine [Phenergan TAB] 25 mg PO Q6HR PRN #16 tab 01/30/20 Unknown Rx bisacodyL [Dulcolax] 10 mg PO DAILY PRN 2 Days #4 tab 01/30/20 Unknown Rx hydrOXYzine HCL [Atarax] 25 mg PO Q6HR PRN #12 tablet 01/30/20 Unknown Rx traMADoL [Ultram] 50 mg PO Q6HR PRN #12 tablet 01/30/20 Unknown Rx Ciprofloxacin HCl [Ciprofloxacin 500 mg PO BID 10 Days #20 tab 03/27/20 Unknown Rx TAB] Promethazine [Phenergan] 25 mg PO Q6HR PRN #10 tab 03/27/20 Unknown Rx metroNIDAZOLE [Flagyl] 500 mg PO BID 10 Days #20 tab 03/27/20 Unknown Rx traMADoL [Ultram 50 MG tab] 50 mg PO Q6HR PRN #10 tablet 03/27/20 Unknown Rx Ondansetron [Zofran Odt] 4 mg PO Q8HR PRN #20 tab.rapdis 03/28/20 Unknown Rx ED Physical Exam - General Limitations: No Limitations General appearance: alert, in no apparent distress - Head Head exam: Present: atraumatic, normocephalic - Eye Eye exam: Present: normal appearance - ENT ENT exam: Present: mucous membranes moist - Respiratory Respiratory exam: Present: normal lung sounds bilaterally. Absent: respiratory distress, wheezes, rales, rhonchi, stridor, chest wall tenderness, accessory muscle use, decreased breath sounds, prolonged expiratory - Cardiovascular Cardiovascular Exam: Present: regular rate, normal rhythm, normal heart sounds. Absent: systolic murmur, diastolic murmur, rubs, gallop - GI/Abdominal GI/Abdominal exam: Present: soft, tenderness (generalized lower), normal bowel sounds. Absent: distended, guarding, rebound, rigid - Neurological Exam Neurological exam: Present: alert, oriented X3 - Psychiatric Psychiatric exam: Present: normal affect, normal mood - Skin Skin exam: Present: warm, dry ED Course Vital Signs 03/27/20 03/27/20 03/27/20 18:06 21:00 22:08 Temperature 99.0 F 99.0 F Pulse Rate 102 H 65 Respiratory 16 20 20 Rate Blood Pressure 163/95 Blood Pressure 178/90 [Right] O2 Sat by Pulse 98 98 Oximetry 03/27/20 03/27/20 03/27/20 22:09 22:39 23:30 Temperature Pulse Rate 65 Respiratory 20 20 20 Rate Blood Pressure Blood Pressure 151/90 [Right] O2 Sat by Pulse 99 Oximetry ED Medical Decision Making - Lab Data Result diagrams: 03/27/20 18:18 03/27/20 18:18 Lab Results 03/27/20 03/27/20 03/27/20 Range/Units 18:18 18:18 18:20 WBC 20.7 H (4.5-11.0) K/mm3 RBC 4.89 (3.65-5.03) M/mm3 Hgb 14.3 (10.1-14.3) gm/dl Hct 44.0 H (30.3-42.9) % MCV 90 (79-97) fl MCH 29 (28-32) pg MCHC 33 (30-34) % RDW 14.5 (13.2-15.2) % Plt Count 261 (140-440) K/mm3 Add Manual Diff Complete Total Counted 100 Seg Neuts % (Manual) 86.0 H (40.0-70.0) % Band Neutrophils % 0 % Lymphocytes % (Manual) 9.0 L (13.4-35.0) % Reactive Lymphs % (Man) 0 % Monocytes % (Manual) 5.0 (0.0-7.3) % Eosinophils % (Manual) 0 (0.0-4.3) % Basophils % (Manual) 0 (0.0-1.8) % Metamyelocytes % 0 % Myelocytes % 0 % Promyelocytes % 0 % Blast Cells % 0 % Nucleated RBC % Not Reportable Seg Neutrophils # Man 17.8 H (1.8-7.7) K/mm3 Band Neutrophils # 0.0 K/mm3 Lymphocytes # (Manual) 1.9 (1.2-5.4) K/mm3 Abs React Lymphs (Man) 0.0 K/mm3 Monocytes # (Manual) 1.0 H (0.0-0.8) K/mm3 Eosinophils # (Manual) 0.0 (0.0-0.4) K/mm3 Basophils # (Manual) 0.0 (0.0-0.1) K/mm3 Metamyelocytes # 0.0 K/mm3 Myelocytes # 0.0 K/mm3 Promyelocytes # 0.0 K/mm3 Blast Cells # 0.0 K/mm3 WBC Morphology Not Reportable Hypersegmented Neuts Not Reportable Hyposegmented Neuts Not Reportable Hypogranular Neuts Not Reportable Smudge Cells Not Reportable Toxic Granulation Not Reportable Toxic Vacuolation Not Reportable Dohle Bodies Not Reportable Pelger-Huet Anomaly Not Reportable Arun Rods Not Reportable Platelet Estimate Not Reportable Clumped Platelets Not Reportable Plt Clumps, EDTA Not Reportable Large Platelets Not Reportable Giant Platelets Not Reportable Platelet Satelliting Not Reportable Plt Morphology Comment Not Reportable RBC Morphology Normal Dimorphic RBCs Not Reportable Polychromasia Not Reportable Hypochromasia Not Reportable Poikilocytosis Not Reportable Anisocytosis Not Reportable Microcytosis Not Reportable Macrocytosis Not Reportable Spherocytes Not Reportable Pappenheimer Bodies Not Reportable Sickle Cells Not Reportable Target Cells Not Reportable Tear Drop Cells Not Reportable Ovalocytes Not Reportable Helmet Cells Not Reportable Lewis-Texline Bodies Not Reportable [place] Rings Not Reportable [place] Cells Not Reportable Bite Cells Not Reportable Crenated Cell Not Reportable Elliptocytes Not Reportable Acanthocytes (Spur) Not Reportable Rouleaux Not Reportable Hemoglobin C Crystals Not Reportable Schistocytes Not Reportable Malaria parasites Not Reportable Nathaniel Bodies Not Reportable Hem Pathologist Commnt No Sodium 136 L (137-145) mmol/L Potassium 4.2 (3.6-5.0) mmol/L Chloride 94.2 L (98-107) mmol/L Carbon Dioxide 27 (22-30) mmol/L Anion Gap 19 mmol/L BUN 31 H (7-17) mg/dL Creatinine 1.2 (0.7-1.2) mg/dL Estimated GFR > 60 ml/min BUN/Creatinine Ratio 26 % Glucose 219 H (65-100) mg/dL Calcium 9.6 (8.4-10.2) mg/dL Total Bilirubin 1.20 (0.1-1.2) mg/dL AST 77 H (5-40) units/L ALT 39 (7-56) units/L Alkaline Phosphatase 115 (35-129) units/L Total Protein 8.3 H (6.3-8.2) g/dL Albumin 4.2 (3.9-5) g/dL Albumin/Globulin Ratio 1.0 % Lipase 40 (13-60) units/L HCG, Qual (Negative) Urine Color (Yellow) Urine Turbidity (Clear) Urine pH (5.0-7.0) Ur Specific Armour (1.003-1.030) Urine Protein (Negative) mg/dL Urine Glucose (UA) (Negative) mg/dL Urine Ketones (Negative) mg/dL Urine Blood (Negative) Urine Nitrite (Negative) Urine Bilirubin (Negative) Urine Urobilinogen (<2.0) mg/dL Ur Leukocyte Esterase (Negative) Urine WBC (Auto) (0.0-6.0) /HPF Urine RBC (Auto) (0.0-6.0) /HPF U Epithel Cells (Auto) (0-13.0) /HPF Urine Bacteria (Auto) (Negative) /HPF Hyaline Casts /LPF Urine Mucus /HPF 03/27/20 03/27/20 Range/Units 18:20 20:25 WBC (4.5-11.0) K/mm3 RBC (3.65-5.03) M/mm3 Hgb (10.1-14.3) gm/dl Hct (30.3-42.9) % MCV (79-97) fl MCH (28-32) pg MCHC (30-34) % RDW (13.2-15.2) % Plt Count (140-440) K/mm3 Add Manual Diff Total Counted Seg Neuts % (Manual) (40.0-70.0) % Band Neutrophils % % Lymphocytes % (Manual) (13.4-35.0) % Reactive Lymphs % (Man) % Monocytes % (Manual) (0.0-7.3) % Eosinophils % (Manual) (0.0-4.3) % Basophils % (Manual) (0.0-1.8) % Metamyelocytes % % Myelocytes % % Promyelocytes % % Blast Cells % % Nucleated RBC % Seg Neutrophils # Man (1.8-7.7) K/mm3 Band Neutrophils # K/mm3 Lymphocytes # (Manual) (1.2-5.4) K/mm3 Abs React Lymphs (Man) K/mm3 Monocytes # (Manual) (0.0-0.8) K/mm3 Eosinophils # (Manual) (0.0-0.4) K/mm3 Basophils # (Manual) (0.0-0.1) K/mm3 Metamyelocytes # K/mm3 Myelocytes # K/mm3 Promyelocytes # K/mm3 Blast Cells # K/mm3 WBC Morphology Hypersegmented Neuts Hyposegmented Neuts Hypogranular Neuts Smudge Cells Toxic Granulation Toxic Vacuolation Dohle Bodies Pelger-Huet Anomaly Arun Rods Platelet Estimate Clumped Platelets Plt Clumps, EDTA Large Platelets Giant Platelets Platelet Satelliting Plt Morphology Comment RBC Morphology Dimorphic RBCs Polychromasia Hypochromasia Poikilocytosis Anisocytosis Microcytosis Macrocytosis Spherocytes Pappenheimer Bodies Sickle Cells Target Cells Tear Drop Cells Ovalocytes Helmet Cells Lewis-Texline Bodies [place] Rings Magy Cells Bite Cells Crenated Cell Elliptocytes Acanthocytes (Spur) Rouleaux Hemoglobin C Crystals Schistocytes Malaria parasites Nathaniel Bodies Hem Pathologist Commnt Sodium (137-145) mmol/L Potassium (3.6-5.0) mmol/L Chloride (98-107) mmol/L Carbon Dioxide (22-30) mmol/L Anion Gap mmol/L BUN (7-17) mg/dL Creatinine (0.7-1.2) mg/dL Estimated GFR ml/min BUN/Creatinine Ratio % Glucose (65-100) mg/dL Calcium (8.4-10.2) mg/dL Total Bilirubin (0.1-1.2) mg/dL AST (5-40) units/L ALT (7-56) units/L Alkaline Phosphatase (35-129) units/L Total Protein (6.3-8.2) g/dL Albumin (3.9-5) g/dL Albumin/Globulin Ratio % Lipase (13-60) units/L HCG, Qual Negative (Negative) Urine Color Yellow (Yellow) Urine Turbidity Slightly-cloudy (Clear) Urine pH 5.0 (5.0-7.0) Ur Specific [place] 1.014 (1.003-1.030) Urine Protein 100 mg/dl (Negative) mg/dL Urine Glucose (UA) 50 (Negative) mg/dL Urine Ketones Tr (Negative) mg/dL Urine Blood Mod (Negative) Urine Nitrite Neg (Negative) Urine Bilirubin Neg (Negative) Urine Urobilinogen < 2.0 (<2.0) mg/dL Ur Leukocyte Esterase Mod (Negative) Urine WBC (Auto) 23.0 H (0.0-6.0) /HPF Urine RBC (Auto) 10.0 (0.0-6.0) /HPF U Epithel Cells (Auto) 12.0 (0-13.0) /HPF Urine Bacteria (Auto) 1+ (Negative) /HPF Hyaline Casts 10 /LPF Urine Mucus 1+ /HPF Vital Signs 03/27/20 03/27/20 03/27/20 18:06 21:00 22:08 Temperature 99.0 F 99.0 F Pulse Rate 102 H 65 Respiratory 16 20 20 Rate Blood Pressure 163/95 Blood Pressure 178/90 [Right] O2 Sat by Pulse 98 98 Oximetry 03/27/20 03/27/20 03/27/20 22:09 22:39 23:30 Temperature Pulse Rate 65 Respiratory 20 20 20 Rate Blood Pressure Blood Pressure 151/90 [Right] O2 Sat by Pulse 99 Oximetry - Radiology Data Radiology results: report reviewed CT ABDOMEN AND PELVIS WITHOUT CONTRAST INDICATION: Generalized lower abdominal pain. Elevated white count. TECHNICAL: Multiple axial CT images of the abdomen and pelvis were acquired without intravenous contrast. Sagittal and coronal reformats were obtained. All CTs at this facility utilize dose reduction techniques including automated exposure control, iterative reconstruction and weight based dosing when appropriate to reduce patient radiation dose to as low as reasonable achievable. COMPARISON: CT of the abdomen and pelvis, 01/30/2020 FINDINGS: Limited imaging of the bilateral lung bases demonstrates no evidence of acute abnormality. Abdomen: The gallbladder has been removed. Within the limitations of today's noncontrast study, the liver, spleen, pancreas, bilateral adrenal glands and bilateral kidneys show no evidence of acute abnormality. There is no evidence of obstructing renal or ureteral stone. There is no perinephric stranding. There is no evidence of bowel obstruction. There has been previous appendectomy. Pelvis: There is possible subtle mild inflammatory stranding of the mid sigmoid colon. No significant amount of free pelvic fluid is demonstrated. The uterus and urinary bladder demonstrate no focal abnormality. Bones and Soft Tissues: Evaluation of bony structures demonstrates no evidence of acute bony abnormality. Soft tissue structures demonstrate no focal acute abnormality. IMPRESSION: 1. Suspected mild inflammatory change of the sigmoid colon. Although this is a subtle finding this may suggest mild colitis or diverticulitis in this patient with a history of lower abdominal pain and elevated white count. Please correlate with patient's clinical presentation. 2. Additional findings as above. Signer Name: Brooklynn Plata MD Signed: 03/27/2020 10:57 PM Workstation Name: [id number] Transcribed By: MARVIN Dictated By: Brooklynn Plata MD Electronically Authenticated By: Brooklynn Plata MD Signed Date/Time: 03/27/202256 DD/ 51 TD/TT: - Medical Decision Making Patient is a 39-year-old female presents emergency room with complaints of lower abdominal pain for 5 days. She has associated nausea, vomiting, diarrhea. She denies any fever, urinary symptoms, hematochezia, hematemesis, melena, dysuria. She has a past medical history of DM and asthma. She has a past abdominal surgical history of appendectomy, cholecystectomy, , tubal ligation. She states her last menstrual cycle was 14 years ago. She has an allergy to fentanyl, Toradol, Bentyl, Reglan. initial triage vitals with mild tachycardia, on repeat HR is normal. on exam: generalized lower abd ttp, no guarding, no rebound, no peritoneal sign, normal bowel sounds. pt given IV Fluids, Zofran, Dilaudid while in the emergency department. Labs with elevated white count at 20,000, mild dehydration, UA shows evidence of UTI. Nurses had difficulty getting IV, Dr. Galvez, ER attending recommended to do CT without contrast. CT abdomen pelvis without IV contrast shows 1. Suspected mild inflammatory change of the sigmoid colon. Although this is a subtle finding this may suggest mild colitis or diverticulitis in this patient with a history of lower abdominal pain and elevated white count. Please correlate with patient's clinical presentation. 2. Additional findings as above. Discussed case with Dr. Galvez, ER attending who states that patient can be given Cipro and Flagyl and follow-up as an outpatient. Patient given prescription for Cipro, Flagyl, Zofran, tramadol. Advised patient Please take medication as prescribed. Do not drive or operate heavy machinery while taking pain medication. Increase your fluid intake. Please eat a liquid diet for the next few days and slowly advance your diet as tolerated. Please follow-up with a GI doctor. Please follow-up with a primary care doctor. Return to the emergency room for any new or worsening symptoms. - Differential Diagnosis UTI, colitis, diverticulitis, pyelonephritis, bowel obstruction, gastroente Critical care attestation.: If time is entered above; I have spent that time in minutes in the direct care of this critically ill patient, excluding procedure time. ED Disposition Clinical Impression: Lower abdominal pain, Nausea vomiting and diarrhea, Colitis UTI (urinary tract infection) Qualifiers: Urinary tract infection type: acute cystitis Hematuria presence: without hematuria Qualified Code(s): N30.00 - Acute cystitis without hematuria Disposition: DC- TO HOME OR SELFCARE Is pt being admited?: No Does the pt Need Aspirin: No Condition: Stable Instructions: Urinary Tract Infection in Women (ED), Infectious Colitis (ED) Additional Instructions: Please take medication as prescribed. Do not drive or operate heavy machinery while taking pain medication. Increase your fluid intake. Please eat a liquid diet for the next few days and slowly advance your diet as tolerated. Please follow-up with a GI doctor. Please follow-up with a primary care doctor. Return to the emergency room for any new or worsening symptoms. Prescriptions: Ciprofloxacin HCl [Ciprofloxacin TAB] 500 mg PO BID 10 Days #20 tab metroNIDAZOLE [Flagyl] 500 mg PO BID 10 Days #20 tab Promethazine [Phenergan] 25 mg PO Q6HR PRN #10 tab PRN Reason: Nausea traMADoL [Ultram 50 MG tab] 50 mg PO Q6HR PRN #10 tablet PRN Reason: Pain , Severe (7-10) Ondansetron [Zofran Odt] 4 mg PO Q8HR PRN #20 tab.rapdis PRN Reason: Vomiting Referrals: [facility] [Provider Group] - 3-5 Days PRIMARY CARE, [Primary Care Provider] - 3-5 Days Time of Disposition: 23:08 Print Language: EQUATORIAL GUINEAN
[2020-03-27 20:39] LABS: Bacteria,Urine 1+ /HPF (Negative); Bilirubin,Urine NEG (Negative); Blood,Urine MOD (Negative); Color,Urine Yellow (Yellow); Hyaline Casts,Urine 10 /LPF; Mucus,Urine 1+ /HPF; Urobilinogen,Urine < 2.0 mg/dL (<2.0)
[2020-03-27] MEDS ORDERED: HYDROmorphone 1 MG/1 ML INJ IV ONE (21:57)
--- NOTE | 2020-03-27 23:02 | Cat Scan Report ---
CT ABDOMEN AND PELVIS WITHOUT CONTRAST INDICATION: Generalized lower abdominal pain. Elevated white count. TECHNICAL: Multiple axial CT images of the abdomen and pelvis were acquired without intravenous contr ast. Sagittal and coronal reformats were obtained. All CTs at this facility utilize dose reduction techniques including automated exposure control, iterative reconstruction and weight based dosing whe n appropriate to reduce patient radiation dose to as low as reasonable achievable. COMPARISON: CT of the abdomen and pelvis, 01/30/2020 FINDINGS: Limited imaging of the bilateral lung bases demonstrates no evidence of acute abnormality. Abdomen: The gallbladder has been removed. Within the limitations of today's noncontrast study, the l iver, spleen, pancreas, bilateral adrenal glands and bilateral kidneys show no evidence of acute abno rmality. There is no evidence of obstructing renal or ureteral stone. There is no perinephric strandi ng. There is no evidence of bowel obstruction. There has been previous appendectomy. Pelvis: There is possible subtle mild inflammatory stranding of the mid sigmoid colon. No significant amount of free pelvic fluid is demonstrated. The uterus and urinary bladder demonstrate no focal abn ormality. Bones and Soft Tissues: Evaluation of bony structures demonstrates no evidence of acute bony abnorma lity. Soft tissue structures demonstrate no focal acute abnormality. IMPRESSION: 1. Suspected mild inflammatory change of the sigmoid colon. Although this is a subtle finding this ma y suggest mild colitis or diverticulitis in this patient with a history of lower abdominal pain and e levated white count. Please correlate with patient's clinical presentation. 2. Additional findings as above. Signer Name: Brooklynn Plata MD Signed: 03/27/2020 10:57 PM Workstation Name: [id number]
[2020-03-28 00:49] VITALS: BP 151/90
== END 2020-03-28 01:04 | disposition home or self-care (01) ==
LOC: ED 18:02
DX: N39.0 Urinary tract infection, site not specified (principal); K52.89 Other specified noninfective gastroenteritis and colitis; I10 Essential (primary) hypertension; E11.9 Type 2 diabetes mellitus without complications; J45.909 Unspecified asthma, uncomplicated; Z98.51 Tubal ligation status; Z90.49 Acquired absence of other specified parts of digestive tract; Z88.6 Allergy status to analgesic agent; Z88.1 Allergy status to other antibiotic agents; Z79.4 Long term (current) use of insulin; Z79.84 Long term (current) use of oral hypoglycemic drugs
CPT/HCPCS: 36415; 74176; 80053; 81001; 83690; 84703; 85007; 85025; 87086; 96361; 96374; 96375; 99284; J1170; J2405; J7030; J2270

== ENCOUNTER 2020-07-01 08:33 | Emergency (ER) | payer MEDICARE ==
[2020-07-01 09:15] VITALS: BP 180/95
[2020-07-01] MEDS ORDERED: MORPHINE 4 MG/1 ML INJ IV ONE (10:48)
[2020-07-01] MEDS ORDERED: PANTOPRAZOLE 40 MG INJ IV ONE (10:48)
[2020-07-01] MEDS ORDERED: SODIUM CHLORIDE 0.9% 1000 ML 1,000 ML IV ONE (10:48)
[2020-07-01] MEDS ORDERED: ONDANSETRON 4 MG/2 ML INJ IV ONE (10:48)
[2020-07-01 11:39] LABS: Hematocrit 35.8 % (30.3-42.9); Mean Corpuscular HGB Conc 34 % (30-34); Mean Corpuscular Volume 86 fl (79-97); Platelet Count 288 K/mm3 (140-440); Red Blood Count 4.17 M/mm3 (3.65-5.03); Red Cell Distribution Width 14.5 % (13.2-15.2)
[2020-07-01 12:13] LABS: Alanine Aminotransferase 18 units/L (7-56); Albumin 4.2 g/dL (3.9-5); BUN/Creatinine Ratio 35; Blood Urea Nitrogen 28 mg/dL (7-17); Calcium 9.6 mg/dL (8.4-10.2); Hemolysis Index 9
[2020-07-01] MEDS ORDERED: HYDROmorphone 1 MG/1 ML INJ IV ONE ×2 (12:20→15:26)
--- NOTE | 2020-07-01 13:10 | Emergency Department Report ---
ED Abdominal Pain HPI - General Chief Complaint: Abdominal Pain Stated Complaint: ABD PAIN Time Seen by Provider: 07/01/20 10:47 Source: patient Mode of arrival: Ambulatory Limitations: No Limitations - History of Present Illness Initial Comments: Patient is a 40-year-old female presents emergency room with complaints of generalized abdominal pain that began 3 days ago. She has associated nausea, vomiting, diarrhea. She denies any fever, hematochezia, hematemesis, melena, urinary symptoms. Patient has a past medical history of diabetes and gastro paresis. She states that this feels similar to her gastroparesis. She states that she has not seen a GI doctor recently. Severity scale (0 -10): 10 - Related Data Home Medications Medication Instructions Recorded Confirmed Last Taken Insulin Glargine [Lantus VIAL] 20 unit SUB-Q QHS 01/18/17 02/21/18 02/20/18 Previous Rx's Medication Instructions Recorded Last Taken Type Insulin Aspart Prot/Aspart(Nf) 15 units SQ AC #7 units 02/23/18 Unknown Rx [NovoLOG Mix 70/30 VIAL] Famotidine [Pepcid] 20 mg PO BID #20 tablet 03/28/18 Unknown Rx amLODIPine 5 mg PO DAILY #60 tab 10/19/18 Unknown Rx metFORMIN [Glucophage] 500 mg PO BID #60 tablet 10/19/18 Unknown Rx Acetaminophen [Tylenol Arthritis] 650 mg PO BID PRN #15 tablet.er 01/12/19 Unknown Rx Ondansetron [Zofran Odt] 4 mg PO Q8HR PRN #20 tab.rapdis 01/12/19 Unknown Rx Promethazine [Phenergan TAB] 25 mg PO Q8HR PRN #20 tab 01/12/19 Unknown Rx Ondansetron [Zofran Odt] 4 mg PO Q8HR PRN #20 tab.rapdis 02/23/19 Unknown Rx Promethazine [Phenergan TAB] 25 mg PO Q6HR PRN #20 tab 02/23/19 Unknown Rx Famotidine [Pepcid] 20 mg PO BID 6 Days #12 tablet 01/30/20 Unknown Rx Nitrofurantoin Hooker/M-Cryst 100 mg PO Q12HR 7 Days #14 capsule 01/30/20 Unknown Rx [Macrobid CAP] Promethazine [Phenergan TAB] 25 mg PO Q6HR PRN #16 tab 01/30/20 Unknown Rx bisacodyL [Dulcolax] 10 mg PO DAILY PRN 2 Days #4 tab 01/30/20 Unknown Rx hydrOXYzine HCL [Atarax] 25 mg PO Q6HR PRN #12 tablet 01/30/20 Unknown Rx traMADoL [Ultram] 50 mg PO Q6HR PRN #12 tablet 01/30/20 Unknown Rx Ciprofloxacin HCl [Ciprofloxacin 500 mg PO BID 10 Days #20 tab 03/27/20 Unknown Rx TAB] Promethazine [Phenergan] 25 mg PO Q6HR PRN #10 tab 03/27/20 Unknown Rx metroNIDAZOLE [Flagyl] 500 mg PO BID 10 Days #20 tab 03/27/20 Unknown Rx traMADoL [Ultram 50 MG tab] 50 mg PO Q6HR PRN #10 tablet 03/27/20 Unknown Rx Ondansetron [Zofran Odt] 4 mg PO Q8HR PRN #20 tab.rapdis 03/28/20 Unknown Rx Ondansetron [Zofran Odt] 4 mg PO Q8HR PRN #20 tab.rapdis 04/25/20 Unknown Rx traMADoL [Ultram] 50 mg PO Q6HR PRN #7 tablet 04/25/20 Unknown Rx Promethazine [Phenergan] 25 mg PO Q6HR PRN #20 tab 06/02/20 Unknown Rx Promethazine [Phenergan] 25 mg SC Q6HR PRN #5 supp.rect 06/02/20 Unknown Rx traMADoL [Ultram] 50 mg PO Q6HR PRN #5 tablet 06/02/20 Unknown Rx Hyoscyamine Subl [Levsin Sl 0.125 0.125 mg SL Q6HR PRN #10 tab 07/01/20 Unknown Rx TAB] Ondansetron [Zofran Odt] 4 mg PO Q8HR PRN #12 tab.rapdis 07/01/20 Unknown Rx cephALEXin [Keflex] 500 mg PO BID 7 Days #14 cap 07/01/20 Unknown Rx Allergies Allergy/AdvReac Type Severity Reaction Status Date / Time fentanyl Allergy Itching Verified 06/02/20 07:40 ketorolac tromethamine Allergy Shortness Verified 06/02/20 07:40 [From Toradol] of Breath dicyclomine HCl [From Bentyl] AdvReac Hives Verified 06/02/20 07:40 metoclopramide [From Reglan] AdvReac Unknown Verified 06/02/20 07:40 ED Review of Systems ROS: Stated complaint: ABD PAIN Other details as noted in HPI Comment: All other systems reviewed and negative ED Past Medical Hx - Past Medical History Previous Medical History?: Yes Hx Hypertension: Yes (?) Hx CVA: No Hx Heart Attack/AMI: No Hx Congestive Heart Failure: No Hx Diabetes: Yes Hx Deep Vein Thrombosis: No Hx Pulmonary Embolism: No Hx GERD: No Hx Liver Disease: No Hx Renal Disease: No Hx Sickle Cell Disease: No Hx Arthritis: No Hx Headaches / Migraines: No Hx Seizures: No Hx Kidney Stones: No Hx Psychiatric Treatment: No Hx Asthma: Yes Hx COPD: No Hx Tuberculosis: No Hx Dementia: No Hx HIV: No Additional medical history: gastroparesis (no official dx) - Surgical History Past Surgical History?: Yes Hx Coronary Stent: No Hx Open Heart Surgery: No Hx Pacemaker: No Hx Internal Defibrillator: No Hx Cholecystectomy: Yes Hx Appendectomy: Yes Hx Breast Surgery: No Additional Surgical History: tubal ligation. x 2 - Social History Smoking Status: Never Smoker Substance Use Type: None - Medications Home Medications: Home Medications Medication Instructions Recorded Confirmed Last Taken Type Insulin Glargine [Lantus VIAL] 20 unit SUB-Q QHS 01/18/17 02/21/18 02/20/18 History Insulin Aspart Prot/Aspart(Nf) 15 units SQ AC #7 units 02/23/18 Unknown Rx [NovoLOG Mix 70/30 VIAL] Famotidine [Pepcid] 20 mg PO BID #20 tablet 03/28/18 Unknown Rx amLODIPine 5 mg PO DAILY #60 tab 10/19/18 Unknown Rx metFORMIN [Glucophage] 500 mg PO BID #60 tablet 10/19/18 Unknown Rx Acetaminophen [Tylenol Arthritis] 650 mg PO BID PRN #15 tablet.er 01/12/19 Un known Rx Ondansetron [Zofran Odt] 4 mg PO Q8HR PRN #20 tab.rapdis 01/12/19 Unknown Rx Promethazine [Phenergan TAB] 25 mg PO Q8HR PRN #20 tab 01/12/19 Unknown Rx Ondansetron [Zofran Odt] 4 mg PO Q8HR PRN #20 tab.rapdis 02/23/19 Unknown Rx Promethazine [Phenergan TAB] 25 mg PO Q6HR PRN #20 tab 02/23/19 Unknown Rx Famotidine [Pepcid] 20 mg PO BID 6 Days #12 tablet 01/30/20 Unknown Rx Nitrofurantoin Hooker/M-Cryst 100 mg PO Q12HR 7 Days #14 capsule 01/30/20 Unknown Rx [Macrobid CAP] Promethazine [Phenergan TAB] 25 mg PO Q6HR PRN #16 tab 01/30/20 Unknown Rx bisacodyL [Dulcolax] 10 mg PO DAILY PRN 2 Days #4 tab 01/30/20 Unknown Rx hydrOXYzine HCL [Atarax] 25 mg PO Q6HR PRN #12 tablet 01/30/20 Unknown Rx traMADoL [Ultram] 50 mg PO Q6HR PRN #12 tablet 01/30/20 Unknown Rx Ciprofloxacin HCl [Ciprofloxacin 500 mg PO BID 10 Days #20 tab 03/27/20 Unknown Rx TAB] Promethazine [Phenergan] 25 mg PO Q6HR PRN #10 tab 03/27/20 Unknown Rx metroNIDAZOLE [Flagyl] 500 mg PO BID 10 Days #20 tab 03/27/20 Unknown Rx traMADoL [Ultram 50 MG tab] 50 mg PO Q6HR PRN #10 tablet 03/27/20 Unknown Rx Ondansetron [Zofran Odt] 4 mg PO Q8HR PRN #20 tab.rapdis 03/28/20 Unknown Rx Ondansetron [Zofran Odt] 4 mg PO Q8HR PRN #20 tab.rapdis 04/25/20 Unknown Rx traMADoL [Ultram] 50 mg PO Q6HR PRN #7 tablet 04/25/20 Unknown Rx Promethazine [Phenergan] 25 mg PO Q6HR PRN #20 tab 06/02/20 Unknown Rx Promethazine [Phenergan] 25 mg SC Q6HR PRN #5 supp.rect 06/02/20 Unknown Rx traMADoL [Ultram] 50 mg PO Q6HR PRN #5 tablet 06/02/20 Unknown Rx Hyoscyamine Subl [Levsin Sl 0.125 0.125 mg SL Q6HR PRN #10 tab 07/01/20 Unknown Rx TAB] Ondansetron [Zofran Odt] 4 mg PO Q8HR PRN #12 tab.rapdis 07/01/20 Unknown Rx cephALEXin [Keflex] 500 mg PO BID 7 Days #14 cap 07/01/20 Unknown Rx ED Physical Exam - General Limitations: No Limitations General appearance: alert, in no apparent distress - Head Head exam: Present: atraumatic, normocephalic - Eye Eye exam: Present: normal appearance - ENT ENT exam: Present: mucous membranes moist - Respiratory Respiratory exam: Present: normal lung sounds bilaterally. Absent: respiratory distress, wheezes, rales, rhonchi, stridor, chest wall tenderness, accessory muscle use, decreased breath sounds, prolonged expiratory - Cardiovascular Cardiovascular Exam: Present: regular rate, normal rhythm, normal heart sounds. Absent: systolic murmur, diastolic murmur, rubs, gallop - GI/Abdominal GI/Abdominal exam: Present: soft, tenderness (generalized), normal bowel sounds. Absent: distended, guarding, rebound, rigid - Neurological Exam Neurological exam: Present: alert, oriented X3 - Psychiatric Psychiatric exam: Present: normal affect, normal mood - Skin Skin exam: Present: warm, dry, intact ED Course Vital Signs 07/01/20 07/01/20 07/01/20 09:15 12:44 15:43 Temperature 98.3 F Pulse Rate 93 H Respiratory 16 22 16 Rate Blood Pressure 180/95 [Right] O2 Sat by Pulse 99 Oximetry ED Medical Decision Making - Lab Data Result diagrams: 07/01/20 11:26 07/01/20 11:26 Lab Results 07/01/20 07/01/20 07/01/20 Range/Units 11:26 11:26 11:26 WBC 19.9 H (4.5-11.0) K/mm3 RBC 4.17 (3.65-5.03) M/mm3 Hgb 12.0 (10.1-14.3) gm/dl Hct 35.8 (30.3-42.9) % MCV 86 (79-97) fl MCH 29 (28-32) pg MCHC 34 (30-34) % RDW 14.5 (13.2-15.2) % Plt Count 288 (140-440) K/mm3 Add Manual Diff Complete Total Counted 100 Seg Neuts % (Manual) 95.0 H (40.0-70.0) % Band Neutrophils % 2.0 % Lymphocytes % (Manual) 3.0 L (13.4-35.0) % Reactive Lymphs % (Man) 0 % Monocytes % (Manual) 0 (0.0-7.3) % Eosinophils % (Manual) 0 (0.0-4.3) % Basophils % (Manual) 0 (0.0-1.8) % Metamyelocytes % 0 % Myelocytes % 0 % Promyelocytes % 0 % Blast Cells % 0 % Nucleated RBC % Not Reportable Seg Neutrophils # Man 18.9 H (1.8-7.7) K/mm3 Band Neutrophils # 0.4 K/mm3 Lymphocytes # (Manual) 0.6 L (1.2-5.4) K/mm3 Abs React Lymphs (Man) 0.0 K/mm3 Monocytes # (Manual) 0.0 (0.0-0.8) K/mm3 Eosinophils # (Manual) 0.0 (0.0-0.4) K/mm3 Basophils # (Manual) 0.0 (0.0-0.1) K/mm3 Metamyelocytes # 0.0 K/mm3 Myelocytes # 0.0 K/mm3 Promyelocytes # 0.0 K/mm3 Blast Cells # 0.0 K/mm3 WBC Morphology Not Reportable Hypersegmented Neuts Not Reportable Hyposegmented Neuts Not Reportable Hypogranular Neuts Not Reportable Smudge Cells Not Reportable Toxic Granulation Not Reportable Toxic Vacuolation Not Reportable Dohle Bodies Not Reportable Pelger-Huet Anomaly Not Reportable Arun Rods Not Reportable Platelet Estimate Consistent w auto Clumped Platelets Not Reportable Plt Clumps, EDTA Not Reportable Large Platelets Not Reportable Giant Platelets Not Reportable Platelet Satelliting Not Reportable Plt Morphology Comment Not Reportable RBC Morphology Normal Dimorphic RBCs Not Reportable Polychromasia Not Reportable Hypochromasia Not Reportable Poikilocytosis Not Reportable Anisocytosis Not Reportable Microcytosis Not Reportable Macrocytosis Not Reportable Spherocytes Not Reportable Pappenheimer Bodies Not Reportable Sickle Cells Not Reportable Target Cells Not Reportable Tear Drop Cells Not Reportable Ovalocytes Not Reportable Helmet Cells Not Reportable Lewis-[place] Bodies Not Reportable Galien Rings Not Reportable Magy Cells Not Reportable Bite Cells Not Reportable Crenated Cell Not Reportable Elliptocytes Not Reportable Acanthocytes (Spur) Not Reportable Rouleaux Not Reportable Hemoglobin C Crystals Not Reportable Schistocytes Not Reportable Malaria parasites Not Reportable Nathaniel Bodies Not Reportable Hem Pathologist Commnt No VBG pH (7.320-7.420) Sodium 137 (137-145) mmol/L Potassium 3.6 (3.6-5.0) mmol/L Chloride 92.2 L (98-107) mmol/L Carbon Dioxide 27 (22-30) mmol/L Anion Gap 21 mmol/L BUN 28 H (7-17) mg/dL Creatinine 0.8 (0.6-1.2) mg/dL Estimated GFR > 60 ml/min BUN/Creatinine Ratio 35 % Glucose 300 H (65-100) mg/dL Calcium 9.6 (8.4-10.2) mg/dL Total Bilirubin 1.00 (0.1-1.2) mg/dL AST 28 (5-40) units/L ALT 18 (7-56) units/L Alkaline Phosphatase 109 (35-129) units/L Total Protein 8.1 (6.3-8.2) g/dL Albumin 4.2 (3.9-5) g/dL Albumin/Globulin Ratio 1.1 % Lipase 46 (13-60) units/L HCG, Qual Negative (Negative) Urine Color (Yellow) Urine Turbidity (Clear) Urine pH (5.0-7.0) Ur Specific [place] (1.003-1.030) Urine Protein (Negative) mg/dL Urine Glucose (UA) (Negative) mg/dL Urine Ketones (Negative) mg/dL Urine Blood (Negative) Urine Nitrite (Negative) Urine Bilirubin (Negative) Urine Urobilinogen (<2.0) mg/dL Ur Leukocyte Esterase (Negative) Urine WBC (Auto) (0.0-6.0) /HPF Urine RBC (Auto) (0.0-6.0) /HPF U Epithel Cells (Auto) (0-13.0) /HPF Urine Mucus /HPF 07/01/20 07/01/20 Range/Units 14:36 Unknown WBC (4.5-11.0) K/mm3 RBC (3.65-5.03) M/mm3 Hgb (10.1-14.3) gm/dl Hct (30.3-42.9) % MCV (79-97) fl MCH (28-32) pg MCHC (30-34) % RDW (13.2-15.2) % Plt Count (140-440) K/mm3 Add Manual Diff Total Counted Seg Neuts % (Manual) (40.0-70.0) % Band Neutrophils % % Lymphocytes % (Manual) (13.4-35.0) % Reactive Lymphs % (Man) % Monocytes % (Manual) (0.0-7.3) % Eosinophils % (Manual) (0.0-4.3) % Basophils % (Manual) (0.0-1.8) % Metamyelocytes % % Myelocytes % % Promyelocytes % % Blast Cells % % Nucleated RBC % Seg Neutrophils # Man (1.8-7.7) K/mm3 Band Neutrophils # K/mm3 Lymphocytes # (Manual) (1.2-5.4) K/mm3 Abs React Lymphs (Man) K/mm3 Monocytes # (Manual) (0.0-0.8) K/mm3 Eosinophils # (Manual) (0.0-0.4) K/mm3 Basophils # (Manual) (0.0-0.1) K/mm3 Metamyelocytes # K/mm3 Myelocytes # K/mm3 Promyelocytes # K/mm3 Blast Cells # K/mm3 WBC Morphology Hypersegmented Neuts Hyposegmented Neuts Hypogranular Neuts Smudge Cells Toxic Granulation Toxic Vacuolation Dohle Bodies Pelger-Huet Anomaly Arun Rods Platelet Estimate Clumped Platelets Plt Clumps, EDTA Large Platelets Giant Platelets Platelet Satelliting Plt Morphology Comment RBC Morphology Dimorphic RBCs Polychromasia Hypochromasia Poikilocytosis Anisocytosis Microcytosis Macrocytosis Spherocytes Pappenheimer Bodies Sickle Cells Target Cells Tear Drop Cells Ovalocytes Helmet Cells Lewis-[place] Bodies Galien Rings [place] Cells Bite Cells Crenated Cell Elliptocytes Acanthocytes (Spur) Rouleaux Hemoglobin C Crystals Schistocytes Malaria parasites Nathaniel Bodies Hem Pathologist Commnt VBG pH 7.488 H (7.320-7.420) Sodium (137-145) mmol/L Potassium (3.6-5.0) mmol/L Chloride (98-107) mmol/L Carbon Dioxide (22-30) mmol/L Anion Gap mmol/L BUN (7-17) mg/dL Creatinine (0.6-1.2) mg/dL Estimated GFR ml/min BUN/Creatinine Ratio % Glucose (65-100) mg/dL Calcium (8.4-10.2) mg/dL Total Bilirubin (0.1-1.2) mg/dL AST (5-40) units/L ALT (7-56) units/L Alkaline Phosphatase (35-129) units/L Total Protein (6.3-8.2) g/dL Albumin (3.9-5) g/dL Albumin/Globulin Ratio % Lipase (13-60) units/L HCG, Qual (Negative) Urine Color Yellow (Yellow) Urine Turbidity Slightly-cloudy (Clear) Urine pH 6.0 (5.0-7.0) Ur Specific [place] 1.029 (1.003-1.030) Urine Protein >500 (Negative) mg/dL Urine Glucose (UA) >=500 (Negative) mg/dL Urine Ketones 20 (Negative) mg/dL Urine Blood Mod (Negative) Urine Nitrite Neg (Negative) Urine Bilirubin Neg (Negative) Urine Urobilinogen < 2.0 (<2.0) mg/dL Ur Leukocyte Esterase Lg (Negative) Urine WBC (Auto) 10.0 H (0.0-6.0) /HPF Urine RBC (Auto) 3.0 (0.0-6.0) /HPF U Epithel Cells (Auto) 17.0 H (0-13.0) /HPF Urine Mucus 2+ /HPF - Radiology Data Radiology results: report reviewed CT ABDOMEN AND PELVIS WITH CONTRAST INDICATION / CLINICAL INFORMATION: abd pain, n/v/d, elevated WBC. TECHNIQUE: Axial CT images were obtained through the abdomen and pelvis after IV contrast. All CT scans at this location are performed using CT dose reduction for ALARA by means of automated exposure control. COMPARISON: CT abdomen/pelvis dated 06/02/2020. FINDINGS: LOWER CHEST: No significant abnormality. LIVER: No significant abnormality. GALLBLADDER: Surgically absent. BILE DUCTS: No significant abnormality. PANCREAS: No significant abnormality. SPLEEN: No significant abnormality. ADRENALS: No significant abnormality. RIGHT KIDNEY / URETER: No significant abnormality. LEFT KIDNEY / URETER: No significant abnormality. STOMACH / SMALL BOWEL: No significant abnormality. COLON: No significant abnormality. APPENDIX: Surgically absent. PERITONEUM: No free fluid. No free air. No fluid collection. LYMPH NODES: No significant adenopathy. AORTA / ARTERIES: No significant abnormality. IVC / VEINS: No significant abnormality. URINARY BLADDER: There is contrast filling the urinary bladder. REPRODUCTIVE ORGANS: No significant abnormality. ADDITIONAL FINDINGS: None. SKELETAL SYSTEM: No significant abnormality. IMPRESSION: No acute abdominopelvic abnormality. Signer Name: iJmmy Villagomez MD Signed: 07/01/2020 3:13 PM Workstation Name: [id number] Transcribed By: SS Dictated By: JIMMY VILLAGOMEZ Electronically Authenticated By: JIMMY VILLAGOMEZ Signed Date/Time: 07/01/20 1513 DD/ 1509 TD/TT: - Medical Decision Making Patient is a 40-year-old female presents emergency room with complaints of generalized abdominal pain that began 3 days ago. She has associated nausea, vomiting, diarrhea. She denies any fever, hematochezia, hematemesis, melena, urinary symptoms. Patient has a past medical history of diabetes and gastroparesis. She states that this feels similar to her gastroparesis. She states that she has not seen a GI doctor recently. VSS. on exam: Patient has g eneralized abdominal tenderness palpation, no guarding, no rebound, no rigidity, no peritoneal signs, normal bowel sounds. Lab significant for white blood cell count of 19.9, blood glucose 300, patient is not acidotic. UA shows evidence of UTI. CT abd pelvis with IV contrast: No acute abdominopelvic abnormality. Patient given 1 L IV fluids, Zofran, pain medication and symptoms improved and she was able to tolerate p.o. intake. Patient given prescription for Zofran, Levsin, Keflex. Advised patient Please take medication as prescribed. Please increase your water intake. Please eat a bland liquid diet and slowly advance your diet as tolerated. Please follow-up with your primary care doctor and have your urine retested. Please follow-up with a GI doctor. Return to emergency room for any new or worsening symptoms. - Differential Diagnosis Gastroparesis, gastroenteritis, obstruction, colitis, UTI, pyelonephritis Critical care attestation.: If time is entered above; I have spent that time in minutes in the direct care of this critically ill patient, excluding procedure time. ED Disposition Clinical Impression: Nausea vomiting and diarrhea, Gastroparesis, Hyperglycemia Abdominal pain Qualifiers: Abdominal location: generalized Qualified Code(s): R10.84 - Generalized abdominal pain UTI (urinary tract infection) Qualifiers: Urinary tract infection type: acute cystitis Hematuria presence: without hematuria Qualified Code(s): N30.00 - Acute cystitis without hematuria Leukocytosis Qualifiers: Leukocytosis type: unspecified Qualified Code(s): D72.829 - Elevated white blood cell count, unspecified Disposition: TO HOME OR SELFCARE Is pt being admited?: No Does the pt Need Aspirin: No Condition: Stable Instructions: Urinary Tract Infection in Women (ED), Gastroenteritis (ED), Abdominal Pain (ED) Additional Instructions: Please take medication as prescribed. Please increase your water intake. Please eat a bland liquid diet and slowly advance your diet as tolerated. Please follow-up with your primary care doctor and have your urine retested. Please follow-up with a GI doctor. Return to emergency room for any new or worsening symptoms. Prescriptions: cephALEXin [Keflex] 500 mg PO BID 7 Days #14 cap Hyoscyamine Subl [Levsin Sl 0.125 TAB] 0.125 mg SL Q6HR PRN #10 tab PRN Reason: abd pain Ondansetron [Zofran Odt] 4 mg PO Q8HR PRN #12 tab.rapdis PRN Reason: Nausea And Vomiting Referrals: PRIMARY CARE, [Primary Care Provider] - 2-3 Days [facility] [Provider Group] - 2-3 Days Time of Disposition: 16:09 Print Language: AUSTRIAN
[2020-07-01 13:39] LABS: Band Neutrophils # (Manual) 0.4 K/mm3; Basophils % (Manual) 0 % (0.0-1.8); Eosinophils % (Manual) 0 % (0.0-4.3); Monocytes % (Manual) 0 % (0.0-7.3); Platelet Estimate Consistent w Auto; RBC Morphology Normal; Total Cells Counted 100
--- NOTE | 2020-07-01 15:17 | Cat Scan Report ---
CT ABDOMEN AND PELVIS WITH CONTRAST INDICATION / CLINICAL INFORMATION: abd pain, n/v/d, elevated WBC. TECHNIQUE: Axial CT images were obtained through the abdomen and pelvis after IV contrast. All CT scans at this location are performed using CT dose reduction for ALARA by means of automated exposure control. COMPARISON: CT abdomen/pelvis dated 06/02/2020. FINDINGS: LOWER CHEST: No significant abnormality. LIVER: No significant abnormality. GALLBLADDER: Surgically absent. BILE DUCTS: No significant abnormality. PANCREAS: No significant abnormality. SPLEEN: No significant abnormality. ADRENALS: No significant abnormality. RIGHT KIDNEY / URETER: No significant abnormality. LEFT KIDNEY / URETER: No significant abnormality. STOMACH / SMALL BOWEL: No significant abnormality. COLON: No significant abnormality. APPENDIX: Surgically absent. PERITONEUM: No free fluid. No free air. No fluid collection. LYMPH NODES: No significant adenopathy. AORTA / ARTERIES: No significant abnormality. IVC / VEINS: No significant abnormality. URINARY BLADDER: There is contrast filling the urinary bladder. REPRODUCTIVE ORGANS: No significant abnormality. ADDITIONAL FINDINGS: None. SKELETAL SYSTEM: No significant abnormality. IMPRESSION: No acute abdominopelvic abnormality. Signer Name: Armani Villagomez MD Signed: 07/01/2020 3:13 PM Workstation Name: [id number]
[2020-07-01 16:03] LABS: Bilirubin,Urine NEG (Negative); Blood,Urine MOD (Negative); Color,Urine Yellow (Yellow); Mucus,Urine 2+ /HPF; Urobilinogen,Urine < 2.0 mg/dL (<2.0)
[2020-07-01 16:04] LABS: Protein,Urine >500 mg/dL (Negative)
== END 2020-07-01 16:32 | disposition home or self-care (01) ==
LOC: ED 08:33
DX: E11.43 Type 2 diabetes mellitus with diabetic autonomic (poly)neuropathy (principal); K31.84 Gastroparesis; E11.65 Type 2 diabetes mellitus with hyperglycemia; N39.0 Urinary tract infection, site not specified; D72.829 Elevated white blood cell count, unspecified; R10.84 Generalized abdominal pain; J45.909 Unspecified asthma, uncomplicated; Z90.49 Acquired absence of other specified parts of digestive tract; Z98.51 Tubal ligation status; Z98.890 Other specified postprocedural states; Z79.4 Long term (current) use of insulin; Z79.84 Long term (current) use of oral hypoglycemic drugs; Z79.899 Other long term (current) drug therapy; Z88.8 Allergy status to other drugs, medicaments and biological substances
CPT/HCPCS: 36415; 74177; 80053; 81001; 82805; 83690; 84703; 85007; 85025; 87086; 96361; 96374; 96375; 96376; 99284; J1170; J2405; J7030; Q9967; C9113; J2270

== ENCOUNTER 2020-10-01 22:20 | Emergency (ER) | payer MEDICARE ==
[2020-10-02 08:07] LABS: Basophils # (Auto) 0.1 K/mm3 (0.0-0.1); Basophils % (Auto) 0.6 % (0.0-1.8); Hematocrit 38.2 % (30.3-42.9); Hemoglobin 12.7 gm/dl (10.1-14.3); Lymphocytes # (Auto) 0.9 K/mm3 (1.2-5.4); Lymphocytes % (Auto) 6.1 % (13.4-35.0); Mean Corpuscular HGB Conc 33 % (30-34); Mean Corpuscular Volume 86 fl (79-97); Monocytes # (Auto) 0.6 K/mm3 (0.0-0.8); Monocytes % (Auto) 3.7 % (0.0-7.3); Platelet Count 301 K/mm3 (140-440); Red Blood Count 4.44 M/mm3 (3.65-5.03); Red Cell Distribution Width 14.1 % (13.2-15.2)
[2020-10-02 08:28] LABS: Alanine Aminotransferase 16 units/L (7-56); Albumin 4.6 g/dL (3.9-5); BUN/Creatinine Ratio 24; Blood Urea Nitrogen 26 mg/dL (7-17); Calcium 10.8 mg/dL (8.4-10.2); Hemolysis Index 2
[2020-10-02 08:54] VITALS: BP 211/106
[2020-10-02] MEDS ORDERED: diphenhydrAMINE 50 MG/ML VIAL IV ONE (09:35)
[2020-10-02] MEDS ORDERED: HYDROmorphone 1 MG/1 ML INJ IV ONE ×3 (09:35→11:13)
[2020-10-02] MEDS ORDERED: ONDANSETRON 4 MG/2 ML INJ IV ONE (09:35)
[2020-10-02] MEDS ORDERED: SODIUM CHLORIDE 0.9% 1000 ML 1,000 ML IV ONE (09:38)
--- NOTE | 2020-10-02 09:43 | Emergency Department Report ---
HPI - General Chief Complaint: Abdominal Pain Time Seen by Provider: 10/02/20 09:22 - [facility] HPI: Room 9 The patient is a 40-year-old female present with chief complaint of abdominal pain. The patient states for the past 4 days she has had diffuse abdominal pain and subjective fever. Patient also admits to nausea vomiting and diarrhea. ED Past Medical Hx - Past Medical History Previous Medical History?: Yes Hx Hypertension: Yes (?) Hx Diabetes: Yes Hx Asthma: Yes Additional medical history: gastroparesis (no official dx) - Surgical History Past Surgical History?: Yes Hx Cholecystectomy: Yes Hx Appendectomy: Yes Additional Surgical History: tubal ligation. x 2 - Family History Family history: no significant - Social History Smoking Status: Current Every Day Smoker Substance Use Type: None - Medications Home Medications: Home Medications Medication Instructions Recorded Confirmed Last Taken Type HYDROcodone/APAP 5-325 [[place] 1 each PO Q6HR PRN #14 tablet 10/02/20 Unknown Rx 5/325] Insulin Aspart (Nf) [NovoLOG 100 15 units SQ QHS 10/02/20 10/02/20 Unknown History UNITS/ML VIAL] Insulin Glargine [Lantus VIAL] 20 unit SUB-Q QHS 10/02/20 10/02/20 Unknown History Promethazine [Phenergan] 25 mg PO Q6HR PRN #20 tab 10/02/20 Unknown Rx Promethazine [Phenergan] 25 mg [place] Q6HR PRN #5 supp.rect 10/02/20 Unknown Rx ED Review of Systems ROS: Stated complaint: ABD PAIN Other details as noted in HPI Constitutional: fever (Subjective) Eyes: denies: eye pain ENT: denies: throat pain Respiratory: no symptoms reported Cardiovascular: denies: chest pain Endocrine: no symptoms reported Gastrointestinal: abdominal pain, nausea, vomiting, diarrhea Genitourinary: denies: dysuria Skin: denies: lesions Neurological: denies: headache Physical Exam - Physical Exam Vital Signs: Vital Signs 10/02/20 10/02/20 01:08 08:53 Temperature 98 F 99.9 F H Pulse Rate 88 118 H Respiratory 20 24 Rate Blood Pressure 142/78 Blood Pressure 211/106 [Left] O2 Sat by Pulse 99 100 Oximetry Physical Exam: GENERAL: The patient is well-developed well-nourished female standing in doorway rubbing back against a door jamb. [] HEENT: Normocephalic. Atraumatic. Extraocular motions are intact. Patient has moist mucous membranes. NECK: Supple. Trachea midline CHEST/LUNGS: Clear to auscultation. There is no respiratory distress noted. HEART/CARDIOVASCULAR: Regular. There is no tachycardia. There is no gallop rub or murmur. ABDOMEN: Abdomen is soft, with diffuse discomfort to palpation. There is no rebound or guarding. Patient has normal bowel sounds. There is no abdominal distention. SKIN: There is no rash. There is no edema. There is no diaphoresis. NEURO: The patient is awake, alert, and oriented. The patient is cooperative. The patient has no focal neurologic deficits. The patient has normal speech and gait. MUSCULOSKELETAL: There is no evidence of acute injury. ED Course Vital Signs 10/02/20 10/02/20 01:08 08:53 Temperature 98 F 99.9 F H Pulse Rate 88 118 H Respiratory 20 24 Rate Blood Pressure 142/78 Blood Pressure 211/106 [Left] O2 Sat by Pulse 99 100 Oximetry ED Medical Decision Making - Lab Data Result diagrams: 10/02/20 07:51 10/02/20 07:51 Laboratory Tests 10/02/20 10/02/20 10/02/20 07:51 07:51 07:51 WBC 15.0 H RBC 4.44 Hgb 12.7 Hct 38.2 MCV 86 MCH 29 MCHC 33 RDW 14.1 Plt Count 301 Lymph % (Auto) 6.1 L [place] % (Auto) 3.7 Eos % (Auto) 0.0 Baso % (Auto) 0.6 Lymph # (Auto) 0.9 L [place] # (Auto) 0.6 Eos # (Auto) 0.0 Baso # (Auto) 0.1 Seg Neutrophils % 89.6 H Seg Neutrophils # 13.4 H Sodium 135 L Potassium 3.9 Chloride 91.8 L Carbon Dioxide 26 Anion Gap 21 BUN 26 H Creatinine 1.1 Estimated GFR > 60 BUN/Creatinine Ratio 24 Glucose 509 H* POC Glucose Calcium 10.8 H Total Bilirubin 0.80 AST 26 ALT 16 Alkaline Phosphatase 124 Total Protein 8.7 H Albumin 4.6 Albumin/Globulin Ratio 1.1 Lipase HCG, Qual Negative 10/02/20 10/02/20 10/02/20 13:23 15:10 Unknown WBC RBC Hgb Hct MCV MCH MCHC RDW Plt Count Lymph % (Auto) [place] % (Auto) Eos % (Auto) Baso % (Auto) Lymph # (Auto) [place] # (Auto) Eos # (Auto) Baso # (Auto) Seg Neutrophils % Seg Neutrophils # Sodium Potassium Chloride Carbon Dioxide Anion Gap BUN Creatinine Estimated GFR BUN/Creatinine Ratio Glucose POC Glucose 457 H 377 H Calcium Total Bilirubin AST ALT Alkaline Phosphatase Total Protein Albumin Albumin/Globulin Ratio Lipase 20 HCG, Qual - Radiology Data Radiology results: report reviewed (CT abdomen pelvis), image reviewed (CT abdomen pelvis) [facility] [address] [place] [address] Cat Scan Report Signed Patient: BHUMI LUNA MR#: [id number] : 1980 Acct:[id number] Age/Sex: 40 / F ADM Date: 10/01/20 Loc: ED Attending Dr: Ordering Physician: BRITTANY LINCOLN MD Date of Service: 10/02/20 Procedure(s): CT abdomen pelvis wo con Accession Number(s): [id number] cc: BRITTANY LINCOLN MD CT ABDOMEN AND PELVIS WITHOUT CONTRAST INDICATION / CLINICAL INFORMATION: MAIN. Diffuse abdominal pain with nausea and vomiting. Poor historian and had a difficult time lying still for the exam. TECHNIQUE: Axial CT images were obtained through the abdomen and pelvis without IV contrast. All CT scans at this location are performed using CT dose reduction for ALARA by means of automated exposure control. COMPARISON: 07/01/2020. FINDINGS: LOWER CHEST: No significant abnormality. LIVER: No significant abnormality. GALLBLADDER: Cholecystectomy. BILE DUCTS: No significant abnormality. PANCREAS: No significant abnormality. SPLEEN: No significant abnormality. ADRENALS: No significant abnormality. RIGHT KIDNEY / URETER: Retained contrast material is noted within the renal collecting system. LEFT KIDNEY / URETER: Retained contrast is noted within the renal collecting system. STOMACH / SMALL BOWEL: No significant abnormality. COLON: Abundant fecal material noted throughout the colon and rectal vault. APPENDIX: Surgically absent. PERITONEUM: No free fluid. No free air. No complex fluid collection. LYMPH NODES: No significant adenopathy. AORTA / ARTERIES: No significant abnormality. IVC / VEINS: Phleboliths noted throughout the pelvis. URINARY BLADDER: Distended urinary bladder. REPRODUCTIVE ORGANS: No significant abnormality. ADDITIONAL FINDINGS: None. SKELETAL SYSTEM: Mild multilevel degenerative changes are noted of the spine. No aggressive osseous lesions. IMPRESSION: 1. No evidence of acute process in the abdomen or pelvis on this noncontrast exam. 2. Retained contrast material is noted within the bilateral renal collecting system. Correlate for recent history of contrast enhanced exam. 3. Abundant fecal material throughout the colon and rectal vault. Correlate clinically for signs and symptoms of constipation. 4. Cholecystectomy and appendectomy changes are stable. Signer Name: Brendan Elliott MD Signed: 10/02/2020 11:44 AM Workstation Name: Your Image by [id number] Transcribed By: Dictated By: BRENDAN ELLIOTT Electronically Authenticated By: BRENDAN ELLIOTT Signed Date/Time: 10/02/20 1144 DD/ 1136 TD/TT: - Differential Diagnosis Gastroparesis, UTI, small bowel obstruction, Critical care attestation.: If time is entered above; I have spent that time in minutes in the direct care of this critically ill patient, excluding procedure time. ED Disposition Clinical Impression: Chronic generalized abdominal pain, Hyperglycemia Disposition: TO HOME OR SELFCARE Is pt being admited?: No Does the pt Need Aspirin: No Condition: Stable Instructions: Abdominal Pain (ED) Additional Instructions: Return to the emergency department should you develop worsening symptoms, inability to tolerate food or liquids, high fever or any other concerns Prescriptions: HYDROcodone/APAP 5-325 [[place] 5/325] 1 each PO Q6HR PRN #14 tablet PRN Reason: Pain Promethazine [Phenergan] 25 mg PO Q6HR PRN #20 tab PRN Reason: Nausea Promethazine [Phenergan] 25 mg [place] Q6HR PRN #5 supp.rect PRN Reason: Vomiting Referrals: [facility] MD MILADY [Primary Care Provider] - 3-5 Days WALDEMAR FIERRO MD [Staff Physician] - 3-5 Days Time of Disposition: 15:19
--- NOTE | 2020-10-02 11:49 | Cat Scan Report ---
CT ABDOMEN AND PELVIS WITHOUT CONTRAST INDICATION / CLINICAL INFORMATION: MAIN. Diffuse abdominal pain with nausea and vomiting. Poor historian and had a difficult time lying still for the exam. TECHNIQUE: Axial CT images were obtained through the abdomen and pelvis without IV contrast. All CT scans at [facility] location are performed using CT dose reduction for ALARA by means of automated exposure control. COMPARISON: 07/01/2020. FINDINGS: LOWER CHEST: No significant abnormality. LIVER: No significant abnormality. GALLBLADDER: Cholecystectomy. BILE DUCTS: No significant abnormality. PANCREAS: No significant abnormality. SPLEEN: No significant abnormality. ADRENALS: No significant abnormality. RIGHT KIDNEY / URETER: Retained contrast material is noted within the renal collecting system. LEFT KIDNEY / URETER: Retained contrast is noted within the renal collecting system. STOMACH / SMALL BOWEL: No significant abnormality. COLON: Abundant fecal material noted throughout the colon and rectal vault. APPENDIX: Surgically absent. PERITONEUM: No free fluid. No free air. No complex fluid collection. LYMPH NODES: No significant adenopathy. AORTA / ARTERIES: No significant abnormality. IVC / VEINS: Phleboliths noted throughout the pelvis. URINARY BLADDER: Distended urinary bladder. REPRODUCTIVE ORGANS: No significant abnormality. ADDITIONAL FINDINGS: None. SKELETAL SYSTEM: Mild multilevel degenerative changes are noted of the spine. No aggressive osseous l esions. IMPRESSION: 1. No evidence of acute process in the abdomen or pelvis on this noncontrast exam. 2. Retained contrast material is noted within the bilateral renal collecting system. Correlate for re cent history of contrast enhanced exam. 3. Abundant fecal material throughout the colon and rectal vault. Correlate clinically for signs and symptoms of constipation. 4. Cholecystectomy and appendectomy changes are stable. Signer Name: Brendan Garcia MD Signed: 10/02/2020 11:44 AM Workstation Name: [id number]
[2020-10-02] MEDS ORDERED: INSULIN REGULAR, HUMAN 100 UNIT/ML 3ML VIAL SUB-Q ONE (13:27)
[2020-10-02] MEDS ORDERED: INSULIN REGULAR, HUMAN 100 UNITS/1 ML ONE (13:30)
[2020-10-02] MEDS ORDERED: HYDROmorphone 1 MG/1 ML INJ IM ONE (15:13)
== END 2020-10-02 15:36 | disposition home or self-care (01) ==
LOC: ED 22:20
DX: R10.84 Generalized abdominal pain (principal); E11.65 Type 2 diabetes mellitus with hyperglycemia; I10 Essential (primary) hypertension; J45.909 Unspecified asthma, uncomplicated; F17.200 Nicotine dependence, unspecified, uncomplicated; Z98.890 Other specified postprocedural states; Z79.4 Long term (current) use of insulin; Z79.899 Other long term (current) drug therapy; Z88.8 Allergy status to other drugs, medicaments and biological substances
CPT/HCPCS: 36415; 74176; 80053; 82962; 83690; 84703; 85025; 96361; 96372; 96374; 96375; 96376; 99284; J1170; J1200; J2405; J7030; J1815

== ENCOUNTER 2021-06-01 22:18 | Emergency (ER) | payer MEDICARE ==
[2021-06-02] MEDS ORDERED: ONDANSETRON 4 MG/2 ML INJ IV ONE (01:52)
[2021-06-02] MEDS ORDERED: FAMOTIDINE 20 MG/2 ML INJ IV ONE (01:52)
[2021-06-02 02:17] LABS: Hematocrit 37.1 % (30.3-42.9); Hemoglobin 12.6 gm/dl (10.1-14.3); Mean Corpuscular HGB Conc 34 % (30-34); Mean Corpuscular Volume 86 fl (79-97); Platelet Count 264 K/mm3 (140-440); Red Blood Count 4.29 M/mm3 (3.65-5.03); Red Cell Distribution Width 13.9 % (13.2-15.2)
--- NOTE | 2021-06-02 02:36 | Emergency Department Report ---
<COLIN LOVE - Last Filed: 06/02/21 06:42> ED Abdominal Pain HPI - General Chief Complaint: Abdominal Pain Stated Complaint: ABD PAIN Source: patient Mode of arrival: Ambulatory Limitations: No Limitations - History of Present Illness Initial Comments: Patient is a 41-year-old -[place] female with a history of hypertension, asthma, [id number] diabetes and gastroparesis who presents to the ED with acute onset persistent diffuse abdominal pain with intractable nausea and vomiting for the last 2 days. Patient states that she has not been able to keep anything down because of persistent nausea and vomiting and that her abdominal p ain is worse with vomiting. Patient states that no one else at home is had similar symptoms. Patient states that she has had similar symptoms in the past and was advised that she may be having gastroparesis because of her diabetes condition. Patient denies dizziness, syncope, chest pain, shortness of breath, diarrhea, dysuria, urine frequency and urgency, fever, chills, vaginal bleeding, vaginal discharge, headache or hematemesis and hematochezia. MD Complaint: abdominal pain, other (nausea and vomiting) -: Sudden, days(s) (2) Location: diffuse Radiation: none Migration to: no migration Severity scale (0 -10): 10 Quality: cramping, aching, sharp Consistency: constant Improves With: nothing Worsens With: eating, vomiting Associated Symptoms: denies other symptoms, nausea, vomiting, anorexia. denies: diarrhea, fever, chills, constipation, dysuria, hematemesis, hematochezia, melena, syncope, other - Related Data Home Medications Medication Instructions Recorded Confirmed Last Taken Insulin Aspart (Nf) [NovoLOG 100 15 units SQ QHS 10/02/20 10/02/20 Unknown UNITS/ML VIAL] Insulin Glargine [Lantus VIAL] 20 unit SUB-Q QHS 10/02/20 10/02/20 Unknown Previous Rx's Medication Instructions Recorded Last Taken Type HYDROcodone/APAP 5-325 [[place] 1 each PO Q6HR PRN #14 tablet 10/02/20 Unknown Rx 5/325] Promethazine [Phenergan] 25 mg PO Q6HR PRN #20 tab 10/02/20 Unknown Rx Promethazine [Phenergan SUPPOS] 25 mg [place] Q6HR PRN #10 supp.rect 06/02/21 Unknown Rx Allergies Allergy/AdvReac Type Severity Reaction Status Date / Time fentanyl Allergy Itching Verified 06/02/20 07:40 ketorolac tromethamine Allergy Shortness Verified 06/02/20 07:40 [From Toradol] of Breath dicyclomine HCl [From Bentyl] AdvReac Hives Verified 06/02/20 07:40 metoclopramide [From Reglan] AdvReac Unknown Verified 06/02/20 07:40 ED Review of Systems Constitutional: denies: chills, fever Eyes: denies: eye pain, eye discharge, vision change ENT: denies: ear pain, throat pain Respiratory: denies: cough, shortness of breath, wheezing Cardiovascular: denies: chest pain, palpitations Endocrine: no symptoms reported Gastrointestinal: abdominal pain, nausea, vomiting. denies: diarrhea Genitourinary: denies: urgency, dysuria, discharge Musculoskeletal: denies: back pain, joint swelling, arthralgia Skin: denies: rash, lesions Neurological: denies: headache, weakness, paresthesias Psychiatric: denies: anxiety, depression Hematological/Lymphatic: denies: easy bleeding, easy bruising ED Past Medical Hx - Past Medical History Previous Medical History?: Yes Hx Hypertension: Yes (?) Hx Diabetes: Yes Hx Asthma: Yes Additional medical history: gastroparesis (no official dx) - Surgical History Past Surgical History?: Yes Hx Cholecystectomy: Yes Hx Appendectomy: Yes Additional Surgical History: tubal ligation. x 2 - Social History Smoking Status: Current Every Day Smoker Substance Use Type: None - Medications Home Medications: Home Medications Medication Instructions Recorded Confirmed Last Taken Type HYDROcodone/APAP 5-325 [[place] 1 each PO Q6HR PRN #14 tablet 10/02/20 Unknown Rx 5/325] Insulin Aspart (Nf) [NovoLOG 100 15 units SQ QHS 10/02/20 10/02/20 Unknown History UNITS/ML VIAL] Insulin Glargine [Lantus VIAL] 20 unit SUB-Q QHS 10/02/20 10/02/20 Unknown History Promethazine [Phenergan] 25 mg PO Q6HR PRN #20 tab 10/02/20 Unknown Rx Promethazine [Phenergan SUPPOS] 25 mg [place] Q6HR PRN #10 supp.rect 07/30/21 Unknown Rx ED Physical Exam - General Limitations: No Limitations General appearance: alert, in no apparent distress - Head Head exam: Present: atraumatic, normocephalic, normal inspection - Eye Eye exam: Present: normal appearance, PERRL, EOMI Pupils: Present: normal accommodation - ENT ENT exam: Present: normal exam, normal orophraynx, mucous membranes moist, TM's normal bilaterally, normal external ear exam - Neck Neck exam: Present: normal inspection - Respiratory Respiratory exam: Present: normal lung sounds bilaterally. Absent: respiratory distress, wheezes, rales, rhonchi, chest wall tenderness, accessory muscle use, decreased breath sounds, prolonged expiratory - Cardiovascular Cardiovascular Exam: Present: regular rate, normal rhythm, normal heart sounds. Absent: systolic murmur, diastolic murmur, rubs, gallop - GI/Abdominal GI/Abdominal exam: Present: soft, tenderness (Palpable diffuse abdominal tenderness), normal bowel sounds. Absent: guarding, rebound, hyperactive bowel sounds, hypoactive bowel sounds, organomegaly - Extremities Exam Extremities exam: Present: normal inspection, full ROM, normal capillary refill - Back Exam Back exam: Present: normal inspection, full ROM. Absent: tenderness, CVA tenderness (R), CVA tenderness (L), muscle spasm, paraspinal tenderness, vertebral tenderness - Neurological Exam Neurological exam: Present: alert, oriented X3, CN II-XII intact, normal gait, reflexes normal - Psychiatric Psychiatric exam: Present: normal affect, normal mood, anxious - Skin Skin exam: Present: warm, dry, intact, normal color. Absent: rash ED Course - Reevaluation(s) Reevaluation #1: 06/02/21 06:08 On reevaluation, patient is still sitting on the floor at the doorway of the room demanding more Dilaudid for pain even after receiving 2 mg of Dilaudid. Patient refuses to go to CT and also refuses to give urine for urinalysis. Patient also refuses normal saline IV bolus. Reevaluation #2: 06/02/21 06:42 Patient still complaining of pain, still laying on the floor demanding Dilaudid be given to her. Patient refuses to go to CT scan or give urine for urinalysis nor get normal saline IV bolus. Haldol 10 mg intramuscular injection and Benadryl 25 mg IV ordered for patient's pain. ED Medical Decision Making - Lab Data Result diagrams: 06/02/21 02:01 06/02/21 02:01 - Radiology Data Radiology results: report reviewed, image reviewed - Medical Decision Making This is a 41-year-old -[place] female with a history of hypertension, asthma, [id number] diabetes and gastroparesis who presents to the ED with acute onset persistent diffuse abdominal pain with intractable nausea and vomiting for the last 2 days. Patient states that she has not been able to keep anything down because of persistent nausea and vomiting and that her abdominal pain is worse with vomiting. Patient states that no one else at home is had similar symptoms. Patient states that she has had similar symptoms in the past and was advised that she may be having gastroparesis because of her diabetes condition. In the ED, patient is alert and oriented x3 and is not in any distress. Patient however is hemodynamically stable but anxious during the physical exam, pacing back and forth in the room and asking for Dilaudid for pain. Patient was treated for pain in the ED, also given antiemetics, normal saline 1 L IV bolus x1, and Pepcid. On reevaluation, patient still complains of pain, still demanding additional Dilaudid pain medication be given to her. Patient refuses to go to have CT scan of abdomen pelvis with contrast stating that she cannot lay down because she is in pain. Patient also refuses urinalysis or normal saline IV bolus. Patient refused to lay on the bed and opted to lay on the floor and on the doorway while rubbing her back on the door frame demanding more Dilaudid. Patient given Haldol 10 mg IM and Benadryl 25 mg IV x1. Patient care transferred to Ms. Belinda Emmanuel PA-C at shift change at 0700 hrs. She shall review the patient's imaging report and disposition the patient accordingly. - Differential Diagnosis Gastroenteritis; gastroparesis; GERD; gastritis; appendicitis ED Disposition Clinical Impression: Nausea and vomiting in adult patient, Chronic abdominal pain, Gastroparesis Disposition: -01 TO HOME OR SELFCARE Is pt being admited?: No Does the pt Need Aspirin: No Condition: Stable Instructions: Nausea and Vomiting, Adult, [id number], Abdominal Pain, Adult, [id number], Gastroparesis, Abdominal Pain (ED) Additional Instructions: Take the Phenergan suppositories as prescribed to help with nausea. It is important that you follow-up with your primary care doctor in the next 2 to 3 days. Return to the ER if your symptoms changes or worsens in any way. Prescriptions: Promethazine [Phenergan SUPPOS] 25 mg [place] Q6HR PRN #10 supp.rect PRN Reason: Vomiting Referrals: PRIMARY CARE, [Primary Care Provider] - 3-5 Days <BELINDA EMMANUEL - Last Filed: 06/02/21 19:30> ED Review of Systems ROS: Stated complaint: ABD PAIN Other details as noted in HPI ED Course Vital Signs 06/02/21 06/02/21 00:36 10:02 Temperature 99.1 F 99.5 F Pulse Rate 95 H 90 Respiratory 20 17 Rate Blood Pressure 175/102 203/99 [Right] O2 Sat by Pulse 96 97 Oximetry ED Medical Decision Making - Lab Data Result diagrams: 06/02/21 02:01 06/02/21 02:01 - Radiology Data Patient: BHUMI LUNA MR#: [id number] : 1980 Acct:[id number] Age/Sex: 41 / F ADM Date: 06/01/21 Loc: ED Attending Dr: Ordering Physician: RACHEL JOSHUA Date of Service: 06/02/21 Procedure(s): CT abdomen pelvis w con Accession Number(s): [id number] cc: RACHEL JOSHUA CT ABDOMEN AND PELVIS WITH CONTRAST INDICATION / CLINICAL INFORMATION: Abdominal pain, N/V, pt refused to sit still during exam, best possible images. OMNI 300 100 ML. TECHNIQUE: Axial CT images were obtained through the abdomen and pelvis after 100 cc IV contrast. Sagittal and coronal reformatted images. All CT scans at this location are performed using CT dose reduction for ALARA by means of automated exposure control. COMPARISON: None available. FINDINGS: LOWER CHEST: No significant abnormality. LIVER: No significant abnormality. GALLBLADDER: Cholecystectomy. BILE DUCTS: No significant abnormality. PANCREAS: No significant abnormality. SPLEEN: No significant abnormality. ADRENALS: No significant abnormality. RIGHT KIDNEY and URETER: No significant abnormality. LEFT KIDNEY and URETER: No significant abnormality. STOMACH and SMALL BOWEL: No significant abnormality. COLON: No significant abnormality. APPENDIX: Appendectomy is suspected. PERITONEUM: No free fluid. No free air. No fluid collection. LYMPH NODES: No significant adenopathy. AORTA and ARTERIES: No significant abnormality. IVC and VEINS: No significant abnormality. URINARY BLADDER: No significant abnormality. REPRODUCTIVE ORGANS: No significant abnormality. ADDITIONAL FINDINGS: None. SKELETAL SYSTEM: Mild lumbar scoliosis. IMPRESSION: No significant abnormality. Signer Name: Jose A Campbell Jr, MD Signed: 06/02/2021 7:38 AM Workstation Name: [id number] Transcribed By: TTR Dictated By: JOSE A CAMPBELL JR, MD Electronically Authenticated By: JOSE A CAMPBELL JR, MD Signed Date/Time: 06/02/21 0738 - Medical Decision Making 0914: CT abdomen pelvis with IV contrast shows nothing acute. Patient currently getting her IV fluids and will have a repeat fingerstick blood sugar done after IV fluids. I did discuss CT results with patient. Patient still begging for more Dilaudid for pain. I offered patient oral Percocet but she refused, she states that Percocet does not work for her pain. Patient continued begging for more Dilaudid. I did review patient past visits and patient has been here c ouple times in the past for abdominal pain and has had multiple CTs for abdominal pain. I am concerned that this is a chronic problem for this patient and I am also concerned for drug-seeking behavior. I informed patient that her CT shows nothing acute and her lab work is unremarkable. At this time I do not see any indication for continued IV Dilaudid. Patient will still continued begging for Dilaudid despite me informing her that I can no longer continue giving her Dilaudid especially since she has no indication for it at this time. Informed patient that she will need to follow-up with either her primary care doctor or follow-up with a pain management doctor. She will be discharged home only with Phenergan. Her blood sugar did improve after the fluids and I recommended that she takes her routine insulin regimen when she gets home. Her blood pressure was also elevated but she has also not had a blood pressure medication for the day and recommend that she take her blood pressure medication when she got home. Patient overall was not toxic appearing nor was she ill- appearing. She was neurologically intact with a normal gait in the ER. Patient was stable at time of discharge. Critical care attestation.: If time is entered above; I have spent that time in minutes in the direct care of this critically ill patient, excluding procedure time. ED Disposition Time of Disposition: 09:21
[2021-06-02 02:40] LABS: Alanine Aminotransferase 14 units/L (7-56); Albumin 4.7 g/dL (3.9-5); BUN/Creatinine Ratio 26; Blood Urea Nitrogen 23 mg/dL (7-17); Calcium 10.1 mg/dL (8.4-10.2); Hemolysis Index 44
[2021-06-02 02:50] LABS: Total Cells Counted 100
[2021-06-02 02:51] LABS: Anisocytosis 1+; Platelet Estimate Consistent w Auto; Toxic Granulation 1+
[2021-06-02] MEDS ORDERED: SODIUM CHLORIDE 0.9% 1000 ML 1,000 ML IV ONE (03:02)
[2021-06-02] MEDS: HYDROmorphone 1 MG/1 ML INJ IV ONE ×2 (03:35→04:36)
[2021-06-02] MEDS ORDERED: HYDROmorphone 1 MG/1 ML INJ IV ONE (04:35)
[2021-06-02] MEDS ORDERED: HYDROmorphone 1 MG/1 ML INJ ONE (04:35)
[2021-06-02] MEDS: SODIUM CHLORIDE 0.9% 1000 ML 1,000 ML IV ONE ×2 (04:37→08:39)
[2021-06-02] MEDS ORDERED: diphenhydrAMINE 50 MG/ML VIAL IV ONE ×2 (05:16→06:29)
[2021-06-02] MEDS ORDERED: HALOPERIDOL LACTATE 5 MG/1 ML INJ IM ONE (06:29)
--- NOTE | 2021-06-02 07:43 | Cat Scan Report ---
CT ABDOMEN AND PELVIS WITH CONTRAST INDICATION / CLINICAL INFORMATION: Abdominal pain, N/V, pt refused to sit still during exam, best pos sible images. OMNI 300 100 ML. TECHNIQUE: Axial CT images were obtained through the abdomen and pelvis after 100 cc IV contrast. Sagittal and c oronal reformatted images. All CT scans at this location are performed using CT dose reduction for [place] by means of automated exposure control. COMPARISON: None available. FINDINGS: LOWER CHEST: No significant abnormality. LIVER: No significant abnormality. GALLBLADDER: Cholecystectomy. BILE DUCTS: No significant abnormality. PANCREAS: No significant abnormality. SPLEEN: No significant abnormality. ADRENALS: No significant abnormality. RIGHT KIDNEY and URETER: No significant abnormality. LEFT KIDNEY and URETER: No significant abnormality. STOMACH and SMALL BOWEL: No significant abnormality. COLON: No significant abnormality. APPENDIX: Appendectomy is suspected. PERITONEUM: No free fluid. No free air. No fluid collection. LYMPH NODES: No significant adenopathy. AORTA and ARTERIES: No significant abnormality. IVC and VEINS: No significant abnormality. URINARY BLADDER: No significant abnormality. REPRODUCTIVE ORGANS: No significant abnormality. ADDITIONAL FINDINGS: None. SKELETAL SYSTEM: Mild lumbar scoliosis. IMPRESSION: No significant abnormality. Signer Name: Jose A Campbell Jr, MD Signed: 06/02/2021 7:38 AM Workstation Name: [id number]
[2021-06-02 10:03] VITALS: BP 203/99
== END 2021-06-02 10:03 | disposition home or self-care (01) ==
LOC: ED 22:18
DX: E11.43 Type 2 diabetes mellitus with diabetic autonomic (poly)neuropathy (principal); K31.84 Gastroparesis; R11.2 Nausea with vomiting, unspecified; R10.9 Unspecified abdominal pain; G89.29 Other chronic pain; I10 Essential (primary) hypertension; J45.909 Unspecified asthma, uncomplicated; F17.200 Nicotine dependence, unspecified, uncomplicated; Z90.49 Acquired absence of other specified parts of digestive tract; Z98.51 Tubal ligation status; Z88.8 Allergy status to other drugs, medicaments and biological substances; Z79.899 Other long term (current) drug therapy
CPT/HCPCS: 36415; 74177; 80053; 82962; 83690; 84703; 85007; 85025; 96361; 96372; 96374; 96375; 96376; 99284; J1170; J1200; J1630; J2405; J7030; Q9967